=== PATIENT | male | born 1940 | race Two or more races ===

== ENCOUNTER 2024-07-04 14:45 | Inpatient (IN) | payer MEDICARE, MEDICAID, SELFPAY ==
[2024-07-04 14:47] VITALS: BMI 20.5
--- NOTE | 2024-07-04 15:04 | EKG_ITS ---
[facility] Test Date: 2024-07-04 Pat Name: KEILA NELSON Department: Room: - Gender: Male [employer]: : 1940 Requested By: Kirit Eduardo Order Number: [id number] Reading MD: Kirit Eduardo Measurements Intervals [place] Rate: 87 P: 91 ND: 204 QRS: 60 QRSD: 93 T: 96 QT: 382 QTc: 460 Interpretive Statements SINUS RHYTHM WITH OCCASIONAL VENTRICULAR PREMATURE COMPLEXES SEPTAL MYOCARDIAL INFARCTION , PROBABLY OLD [40+ ms Q WAVE IN V1/V2] No previous ECG available for comparison /store/S0/[id number].pdf
--- NOTE | 2024-07-04 15:04 | XR_ITS ---
Examination: CT chest with intravenous contrast CT abdomen with intravenous contrast CT pelvis with intravenous contrast 2-D coronal and sagittal reconstructions Time of exam: July 04, 2024 2000 hours Comparison 02/08/2023 INDICATIONS: Jaundice 2 weeks, unable to E, diagnosis stomach cancer CTDI: vol (mGy) : 4.02 DLP: (mGycm): 292 Technique: Multiple axial images of the chest, abdomen and pelvis with intravenous contrast, 3.0 mm slice thickness. Images obtained post intravenous injection Isovue 370 60 cc. 2-D sagittal and coronal reconstructions. Low dose protocols were performed. One or more of the following dose reduction techniques were used; automated exposure control, adjustment of the mA and/or KV according to patient size, use of iterative reconstruction technique. Findings: No thoracic aortic aneurysmal dilatation Pulmonary artery opacification is poor No peritracheal or tracheobronchial or bronchopulmonary adenopathy COPD with moderate hyperexpansion Soft areas of lung opacity in the lower lung zones consistent with pneumonia Marked intrahepatic biliary tract dilatation Markedly distended gallbladder Marked extrahepatic biliary tract dilatation, common hepatic duct at least 28 mm No definite pancreatic mass Mucosa is thickened in the stomach especially the fundal region No hydronephrosis Renal aorta normal size No bowel obstruction Mild ascites Abundant stool in the rectum Urinary bladder wall thickening Significant osteopenia IMPRESSION: Bibasilar pneumonia Severe extrahepatic biliary tract dilatation including distended gallbladder and markedly enlarged common hepatic common bile duct Recommend ERCP/biliary stent placement follow-up Malignant ascites
--- NOTE | 2024-07-04 15:09 | PD.EDRME ---
Rapid Medical Screening Exam RME Arrival date/time: 07/04/24 14:45 84-year-old male with previous history of stomach cancer reports with complaints of jaundice x 15 days Chief Complaint: Abdominal Pain Time Seen by Provider: 07/04/24 14:49
[2024-07-04 16:33] LABS: Basophils % (Auto) 0 % (0-2.5); Eosinophils % (Auto) 0 % (0-10); Hematocrit 33.2 % (41.0-53.0); Hemoglobin 12.3 g/dL (13.5-16.0); Immature Granulocytes % (Auto) 1 % (0-0); Immature Granulocytes Auto 0.03 Thou/mm3 (0.00-0.00); Lymphocytes # (Auto) 0.9 Thou/mm3 (1.0-4.8); Lymphocytes % (Auto) 18 % (10-50); Mean Corpuscular Hemoglobin 32.3 pg (25.0-35.0); Mean Corpuscular Volume 87 fL (80-100); Monocytes # (Auto) 0.4 Thou/mm3 (0.0-0.8); Monocytes % (Auto) 7 % (0-12); Neutrophils % (Auto) 75 % (37-80); Nucleated Red Blood Cell % 0 /100 WBC (0); Platelet Count 296 Thou/mm3 (140-440); RDW Standard Deviation 59.7 fL (35.1-43.9); Red Blood Count 3.81 Miln/mm3 (4.50-5.90); White Blood Count 5.3 Thou/mm3 (3.8-10.6)
[2024-07-04 16:49] LABS: Ammonia 27 uMol/L (11-32)
[2024-07-04 17:04] LABS: Alanine Aminotransferase 249 U/L (10-49); Albumin, Serum 3.5 gm/dL (3.4-4.8); Albumin/Globulin Ratio 0.9 (1.2-2.2); Alkaline Phosphatase 1029 U/L (46-116); Anion Gap 9 (7-16); Aspartate Amino Transferase 283 U/L (0-34); BUN/Creatinine Ratio 20 Ratio (12-20); Blood Urea Nitrogen 16 mg/dL (9-23); Calcium 9.4 mg/dL (8.3-10.6); Calcium (Corrected) 9.8 mg/dL (8.5-10.1); Carbon Dioxide 30.4 mMol/L (20.0-31.0); Chloride 93 mMol/L (98-107); Creatinine (Component) 0.8 mg/dL (0.6-1.3); Estimated Creatinine Clearance 61.7 mL/min (>60); Globulin 3.9 gm/dL (2.3-3.5); Glucose 280 mg/dL (74-106); Magnesium 1.6 mg/dL (1.6-2.6); Osmolality,Calculated 275 (275-295); Potassium 3.4 mMol/L (3.4-5.1); Sodium 132 mMol/L (136-145); Total Protein 7.4 gm/dL (5.7-8.2); Troponin I < 0.020 ng/mL (0.0-0.045); eGFR > 60 See Note
[2024-07-04 17:31] LABS: Hepatitis A Antibody IgM Non Reactive (Non React); Hepatitis B Core Antibody IgM Non Reactive (Non React); Hepatitis B Surface Antigen Non Reactive (Non React); Hepatitis C Antibody Non Reactive (Non React)
[2024-07-04 17:32] LABS: Bilirubin,Total 31.1 mg/dL (0.3-1.2)
[2024-07-04 19:42] VITALS: BP 110/64; PULSE 77; RESP 18; TEMP 36.5; O2SAT 95
--- NOTE | 2024-07-04 19:44 | PD.EDABDPN ---
ED Abdominal Pain RME/HPI General Chief Complaint: Abdominal Pain Stated complaint: JAUNDICE AND NOT EATING Time seen by provider: 07/04/24 14:49 Arrival date/time: 07/04/24 14:45 Limitations: no limitations RME / HPI RME / HPI narrative: 07/04/24 14:45 84-year-old male with previous history of stomach cancer reports with complaints of jaundice x 15 days ----- Dr. Day's Main ED Evaluation: 84yo male with a history presents to the ED for a chief complaint of jaundice x 3 weeks. states the patient has been turning more yellow over the last 3 weeks, reporting the patient has not been eating and more fatigued than normal. Patient reports associated generalized abdominal pain. She denies any fever, chills, weakness, tenderness or any other associated symptoms. She states the patient is not on any medications. No known allergies. Related Data Allergies Allergy/AdvReac Type Severity Reaction Status Date / Time No Known Allergies Allergy Verified 07/04/24 14:51 Review of Systems Review of Systems Systems Reviewed: All systems reviewed, normal except as documented Past Medical History Past Medical History CARDIAC: Negative Cardiac Disorders or Congestive Heart Failure RESPIRATORY: Negative Chronic Obstructive Pulmonary Disease (COPD) or Asthma GENITOURINARY: Negative Renal Disease ENDOCRINE: Negative Diabetes Mellitus Type 1 or Diabetes Mellitus Type 2 HEMATOLOGIC: Negative Sickle Cell Disease Social History SMOKING STATUS: Never smoker ED Exam General Limitations: Present no limitations General appearance: Present alert, in no apparent distress, cachectic and other (appears ill) Head Head exam: Present atraumatic Eye Eye exam: Present PERRL, EOMI and scleral icterus ENT ENT exam: Present normal exam, normal oropharynx and mucous membranes moist Neck Neck exam: Present normal inspection, full ROM and trachea midline Chest Chest inspection: Present normal inspection and symmetric chest wall rise Respiratory Respiratory exam: Present normal lung sounds bilaterally Cardiovascular Cardiovascular exam: Present regular rate, normal rhythm and normal heart sounds Abdominal Exam Abdominal exam: Present soft; Absent mass Extremities Exam Extremities exam: Present normal inspection and full ROM; Absent pedal edema Back Exam Back exam: Present normal inspection and full ROM; Absent other (thoracic or lumbar tenderness) Neurological Exam Neurological exam: Present alert, oriented X3, CN II-XII intact and normal gait Psychiatric Psychiatric exam: Present normal affect and normal mood Skin Skin exam: Present warm, dry, intact and other (jaundice; no petechiae); Absent rash Course Course Course Narrative: 1948: Patient is sitting in RME and is pending a room. 2001: Patient to CT. Quality Measures none Orders Category Date Time Status Admit to Inpatient Status Routine Admission 07/04/24 21:34 Active Patient Condition Routine Admission 07/04/24 21:34 Ordered COVID-19 Screening Questionnaire NOW Care 07/04/24 20:[address] Screening NOW Care 07/04/24 15:05 Active Continuous Pulse Oximetry NOW Care 07/04/24 21:34 Completed Decision to Admit X1 Care 07/04/24 20:53 Completed EKG (ED ONLY) *Do not use* NOW Care 07/04/24 15:04 Completed Intake and Output QSHIFT Care 07/04/24 21:45 Ordered MRI Screening NOW Care 07/04/24 20:54 Active Miscellaneous Nursing Order NOW Care 07/04/24 21:34 Active Neuro Check Q4H Care 07/04/24 21:34 Active Notify provider NEEDED Care 07/04/24 21:34 Active Obtain weight NOW Care 07/04/24 21:34 Completed Sequential Compression Device QSHIFT Care 07/04/24 21:39 Active Diet Regular Diet 07/04/[address] chest abdomen pelvis w Stat Exams 07/04/24 15:04 Completed EKG (ED Only) Stat Exams 07/04/24 15:04 Draft MR abdomen wo/w con Stat Exams 07/04/24 Ordered A1C [Glycohemoglobin w (eAG)] AM DRAW Lab 07/05/24 05:00 Ordered Acetaminophen Stat Lab 07/04/24 21:44 Ordered Ammonia Stat Lab 07/04/24 16:01 Completed Bilirubin,Direct Stat Lab 07/04/24 21:24 Received CA 19-9 Antigen* Stat Lab 07/04/24 21:24 Received CBC AM DRAW Lab 07/05/24 05:00 Ordered CBC AM DRAW Lab 07/06/24 05:00 Ordered CBC AM DRAW Lab 07/07/24 05:00 Ordered CBC AM DRAW Lab 07/08/24 05:00 Ordered CBC AM DRAW Lab 07/09/24 05:00 Ordered CBC AM DRAW Lab 07/10/24 05:00 Ordered CBC AM DRAW Lab 07/11/24 05:00 Ordered CBC Stat Lab 07/04/24 16:01 Completed CMP [Comprehensive Metabolic Panel] Stat Lab 07/04/24 16:01 Completed Comprehensive Metabolic Panel AM DRAW Lab 07/05/24 05:00 Ordered Comprehensive Metabolic Panel AM DRAW Lab 07/06/24 05:00 Ordered Comprehensive Metabolic Panel AM DRAW Lab 07/07/24 05:00 Ordered Comprehensive Metabolic Panel AM DRAW Lab 07/08/24 05:00 Ordered Comprehensive Metabolic Panel AM DRAW Lab 07/09/24 05:00 Ordered Comprehensive Metabolic Panel AM DRAW Lab 07/10/24 05:00 Ordered Comprehensive Metabolic Panel AM DRAW Lab 07/11/24 05:00 Ordered Drug Screen,Urine Stat Lab 07/04/24 21:44 Ordered Free T4 (Free Thyroxine) AM DRAW Lab 07/05/24 05:00 Ordered Hepatitis Acute Panel Stat Lab 07/04/24 16:01 Completed Hepatitis Acute Panel Stat Lab 07/04/24 21:24 Received INR [Prothrombin Time with INR] Stat Lab 07/04/24 21:24 Received LDH (Lactate Dehydrogenase) Stat Lab 07/04/24 21:44 Ordered Lipid Panel AM DRAW Lab 07/05/24 05:00 Ordered Mag [Magnesium] Stat Lab 07/04/24 16:01 Completed Magnesium AM DRAW Lab 07/05/24 05:00 Ordered Magnesium AM DRAW Lab 07/06/24 05:00 Ordered Magnesium AM DRAW Lab 07/07/24 05:00 Ordered PSA [Prostate Specific Antigen] Routine Lab 07/05/24 05:00 Ordered PT [Prothrombin Time with INR] Stat Lab 07/04/24 20:54 Ordered PTT [Partial Thromboplastin Time] Stat Lab 07/04/24 21:24 Received Partial Thromboplastin Time AM DRAW Lab 07/05/24 05:00 Ordered Partial Thromboplastin Time AM DRAW Lab 07/06/24 05:00 Ordered Partial Thromboplastin Time AM DRAW Lab 07/07/24 05:00 Ordered Phosphorous AM DRAW Lab 07/05/24 05:00 Ordered Phosphorous AM DRAW Lab 07/06/24 05:00 Ordered Phosphorous AM DRAW Lab 07/07/24 05:00 Ordered Prealbumin Stat Lab 07/04/24 21:24 Received Prothrombin Time with INR AM DRAW Lab 07/05/24 05:00 Ordered Prothrombin Time with INR AM DRAW Lab 07/06/24 05:00 Ordered Prothrombin Time with INR AM DRAW Lab 07/07/24 05:00 Ordered Thyroid Stimulating Hormone AM DRAW Lab 07/05/24 05:00 Ordered Troponin I Stat Lab 07/04/24 16:01 Completed UA [Urinalysis] Stat Lab 07/04/24 15:04 Ordered Ondansetron Inj [Zofran Inj] Med 07/04/24 21:34 Active 4 mg IV Q6H PRN Ringers Lactated 1000 ml [Lactated Ringers] 1,000 ml Med 07/04/24 21:45 Active IV 75 mls/hr Code Status Routine Oth 07/04/24 21:34 Ordered Oxygen Delivery PRN RT 07/04/24 21:34 Active Vital Signs Vital signs: Vital Signs Temperature 97.7 F 07/04/24 19:42 Pulse Rate 77 07/04/24 19:42 Respiratory Rate 18 07/04/24 19:42 Blood Pressure 110/64 07/04/24 19:42 Pulse Oximetry (%) 95 07/04/24 19:42 Abdominal Pain MDM MDM Narrative MDM Narrative:: Suggested E/M Coding Level 99967 (This level has been selected based on the 2022 CPT guidelines for E/M codes in the ED.) COPA: This patient has high complexity 1+ chronic illnesses with severe exacerbation, progression, or side effects. Patient with history of prostate cancer with progression of jaundice over the last 15 days. DATA: This patient required moderate data complexity Tests Ordered: 3 Tests Reviewed: 3. Patient with abnormal liver function test to include bilirubin of 31. White count is normal. Otherwise no evidence of thrombocytopenia. Patient normal anion gap and otherwise glucose is 280. Other additional LFTs seem to be abnormal and likely represent an obstructive picture secondary to the alk phos being 1029. External Notes: 3. Noted history of radiation in the past. Independent Historian? Yes - friend RISK: This patient has high risk due to decision regarding hospitalization: Patient has painless juandice and discussed with patient benefits and drawbacks of admission and made a shared decision not to admit. Patient data External records reviewed:: [facility] previous records (Per chart review, patient was seen here on 12/11/22 for acute hyperglycemia.) Clinical information provided by:: patient Social determinants that could affect healthcare access:: none Patient has the following chronic illnesses:: prostate CA How is presenting disease/condition affected by chronic disease/condition?: uneffected by Evaluation data The following diagnostics were reviewed and interpreted by me:: lab results, radiology exam(s) and EKG tracing(s) Lab and/or radiology exams considered but not ordered:: none Interpretation Summary: WBC count is normal, Sodium is 132, Total Bilirubin is elevated at 31.1, LFTs are elevated, Hepatitis is negative, according to my interpretation. EKG done at 1510, NSR, rate of 87, PVCs, QTc: 460, no acute ST or T-wave changes, no STEMI, according to my interpretation. ------ [facility] Report Signed Patient: KEILA NELSON. Record#: [id number] Birthdate: 1940 Age/Sex: 84 / M Location: [facility] Attending Dr: Ordering Physician: Kirit Eduardo PA-C Date of Service: 07/04/24 Procedure(s): CT chest abdomen pelvis w Accession Number(s): [id number] cc: Abdulkadir Harrison MD; NO PRIMARY/FAMILY,PHYSICIAN; Kirit Eduardo PA-C~ Examination: CT chest with intravenous contrast CT abdomen with intravenous contrast CT pelvis with intravenous contrast 2-D coronal and sagittal reconstructions Time of exam: July 04, 2024 2000 hours Comparison 02/08/2023 INDICATIONS: Jaundice 2 weeks, unable to E, diagnosis stomach cancer CTDI: vol (mGy) : 4.02 DLP: (mGycm): 292 Technique: Multiple axial images of the chest, abdomen and pelvis with intravenous contrast, 3.0 mm slice thickness. Images obtained post intravenous injection Isovue 370 60 cc. 2-D sagittal and coronal reconstructions. Low dose protocols were performed. One or more of the following dose reduction techniques were used; automated exposure control, adjustment of the mA and/or KV according to patient size, use of iterative reconstruction technique. Findings: No thoracic aortic aneurysmal dilatation Pulmonary artery opacification is poor No peritracheal or tracheobronchial or bronchopulmonary adenopathy COPD with moderate hyperexpansion Soft areas of lung opacity in the lower lung zones consistent with pneumonia Marked intrahepatic biliary tract dilatation Markedly distended gallbladder Marked extrahepatic biliary tract dilatation, common hepatic duct at least 28 mm No definite pancreatic mass Mucosa is thickened in the stomach especially the fundal region No hydronephrosis Renal aorta normal size No bowel obstruction Mild ascites Abundant stool in the rectum Urinary bladder wall thickening Significant osteopenia IMPRESSION: Bibasilar pneumonia Severe extrahepatic biliary tract dilatation including distended gallbladder and markedly enlarged common hepatic common bile duct Recommend ERCP/biliary stent placement follow-up Malignant ascites Dictated By: Abdulkadir Harrison MD Signed By: <Electronically signed by Abdulkadir Harrison MD in [place]> 07/04/242023 Medications / Prescriptions Medications or Prescriptions considered but not ordered:: none Medication administrations:: Medication Administration History Lactated Ringer's (Lactated Ringers) 1,000 mls @ 75 mls/hr IV .[id number] [facility] Stop: 08/03/24 21:44 Ondansetron HCl (Ondansetron Inj 2 Mg/Ml Inj 2 Ml) 4 mg IV Q6H PRN; Protocol PRN Reason: NAUSEA OR VOMITING Stop: 08/03/24 21:33 see above, if any Consultations Consultation(s) initiated? (list below): Yes Consultation #1 (Physician, Specialty, Details): Discussed case with [Dr. Cifuentes] from [GI] regarding [consultation]. Discussed patients ED course, exam findings, labs, and radiology results. States the patient can be admitted here and the patient can get an inpatient MRI with pancreas view, and Dr. Ann will place a stent. Time: 20:45 Consultation #2 (Physician, Specialty, Details): Discussed case with [the resident physician, attending Dr. Zarate] from Hospitalist service regarding admission. Discussed patients ED course, exam findings, labs, and radiology results. The Hospitalist [agrees] to accept the patient for admission. Time: 20:51 Diagnosis Differential diagnosis abdominal pain: other (metastatic disease, pancreatic cancer, any gallbladder etiology, failure to thrive, CBD obstruction ) Most likely diagnosis given after review of the tests above:: see below Admission Indicated Admission indicated?: indicated Admission Request Was there a request for admission?: Yes Admission Attestation Admission request attestation: Discussed case with [] from Hospitalist service regarding admission. Discussed patients ED course, exam findings, labs, and radiology results. The Hospitalist [agrees,declines] to accept the patient for admission. Disposition Plan Disposition Plan: Admit Discharge Plan Prescriptions/Referrals Referrals: No Primary/Family,Physician [Primary Care Provider] - In 1 week Problem List Clinical Impression: Painless jaundice, History of prostate cancer Patient/Caregiver Discharge Instructions Print Language: Icelandic
[2024-07-04 21:27] VITALS: BP 136/77; PULSE 72; RESP 18; TEMP 36.6; O2SAT 100
[2024-07-04 21:47] VITALS: PULSE 77; RESP 16; RESP 98
--- NOTE | 2024-07-04 21:48 | ESHP_ITS ---
Documentation for date of: 07/04/24 HPI History of Present Illness Chief complaint: Yellow discoloration of skin, lethargy, diarrhea History of present illness: Mr. Zamora is a 84-year-old male with past medical history of prostate cancer who presented to [facility] [place] emergency department on 07/04/24 with chief complaint of yellowish discoloration of skin, increased lethargy and diarrhea. Patient is a poor historian, history obtained at bedside, patient's friend at bedside, per patient his symptoms started about 3 weeks ago when he started noticing yellowish discoloration of skin, does complain of pruritus, on and off mild abdominal pain and watery diarrhea on and off. Patient endorsed progressive weakness complicating his daily life, denies any history of liver disease in the past, complains of cancer in abdomen for which he received surgery and radiation in 1978, patient is unable to provide more details about history of malignancy. Patient denies any history of prostate cancer, per review of records patient had prostate cancer for which he received surgery, radiation and hormonal therapy. Patient is alert and oriented x 3, no asterixis or tremors noted, conversational able to hold conversation, no signs of hepatic encephalopathy. Patient does report using tsqq-uwj-voyecap aspirin about twice a day, sometimes 4 times a day, denies any qnuc-lfu-ysuskfz Tylenol use, herbal supplement use. He does report history of excessive alcohol use in the past and cocaine use in 1960s. Patient otherwise denies any other drug use or alcohol use currently. Patient is significantly cachectic, complains of recent weight loss as well. Patient denies following up with a primary care physician outpatient, reports last time he saw physician was about 10 years ago and presented to the ED today due to worsening of symptoms since the last 3 weeks. Patient denies any chest pain, shortness of breath and headache. ED Course: ED Vitals: On presentation BP 110/64, P77, RR 18, temp 97.7, O2 sat 95 on room air ED Labs: ED labs significant for RBC 3.81, hemoglobin 12.3, sodium 132, chloride 93, glucose 280, total bilirubin 31.1, AST 283, ALT 249, alk phos 1029, globulin 3.9 ED Imaging:CT chest abdomen pelvis significant for bibasilar pneumonia, severe extrahepatic biliary dilatation including distended gallbladder and markedly enlarged common hepatic common bile duct, malignant ascites. ED Treatment: Gastroenterology consulted in ED, recommended admission for further evaluation. Patient admitted to hospital for further management of acute cholestasis and hyperbilirubinemia. Review of Systems Review of Systems Narrative Review of Systems: ROS: -CONSTITUTIONAL: Positive for weight loss, denies fever and chills. -HEENT: Denies changes in vision and hearing. -RESPIRATORY: Denies SOB and cough. -CV: Denies palpitations and Chest Pain. -GI: Positive for on and off abdominal pain, positive for nausea, vomiting and diarrhea. -: Denies dysuria and urinary frequency. -MSK: Denies myalgia and joint pain. -SKIN: Denies rash and pruritus. Positive for yellowish discoloration of skin -NEUROLOGICAL: Denies headache and syncope. -PSYCHIATRIC: Denies recent changes in mood. Denies anxiety and depression. Past Medical History Past Medical History Comments PMH COMMENT: PMH: Positive for prostate cancer PSHx: Positive for robot-assisted radical prostatectomy Allergies: No known allergies Social history: Independent ADLs, lives with friend -Smoking: Denies -Alcohol Use: Positive for significant alcohol use in past -Illicit Drug Use: Positive for cocaine use in past, per chart review patient had U tox positive for meth, denies any meth use Family History: No pertinent family history Exam Vital Signs Temp Pulse Resp BP Pulse Ox O2 Del Method 97.9 F 72 18 136/77 H 100 Room Air 07/04/24 21:27 07/04/24 21:27 07/04/24 21:27 07/04/24 21:27 07/04/24 21:27 07/04/24 21:27 Narrative Exam Physical Exam General: Awake and in no acute distress. Conversational, cachectic and frail. HEENT: Normocephalic, atraumatic, mucous membranes moist. Icterus noted. Heart: Regular rate and rhythm, no murmurs. Lungs: Clear to auscultation with no wheezing or crackles. Abdomen: Soft, scaphoid, nondistended, nontender, positive bowel sounds. ?No guarding or rebound tenderness. Neurologic: Alert and oriented x3, no gross neurological deficit, and patient able to move all 4 extremities. Extremities: No edema. Skin: No rash or ecchymoses. Significant jaundice noted. Results: Labs 07/04/24 16:01 07/04/24 16:01 Labs: Short CBC 07/04/24 Range/Units 16:01 WBC 5.3 (3.8-10.6) Thou/mm3 Hgb 12.3 L (13.5-16.0) g/dL Hct 33.2 L (41.0-53.0) % Plt Count 296 (140-440) Thou/mm3 BMP 07/04/24 16:01 Sodium 132 L Potassium 3.4 Chloride 93 L Carbon Dioxide 30.4 BUN 16 Creatinine 0.8 Glucose 280 H Calcium 9.4 Cardiac Enzymes 07/04/24 Range/Units 16:01 Troponin I < 0.020 (0.0-0.045) ng/mL Liver Function 07/04/24 Range/Units 16:01 Total Bilirubin 31.1 H* (0.3-1.2) mg/dL AST 283 H (0-34) U/L ALT 249 H (10-49) U/L Alkaline Phosphatase 1029 H (46-116) U/L Albumin 3.5 (3.4-4.8) gm/dL Quality Measures Quality Measures none Advance care planning discussed with:: patient Medications Home Medications and Allergies Allergies Allergy/AdvReac Type Severity Reaction Status Date / Time No Known Allergies Allergy Verified 07/04/24 14:51 Visit Medications Lactated Ringer's (Lactated Ringers) 1,000 mls @ 75 mls/hr IV .[id number] BARBIE Stop: 08/03/24 21:44 Ondansetron HCl (Ondansetron Inj 2 Mg/Ml Inj 2 Ml) 4 mg IV Q6H PRN; Protocol PRN Reason: NAUSEA OR VOMITING Stop: 08/03/24 21:33 Assessment & Plan Plan Assessment and plan: Summary: Mr. Zamora is a 84-year-old male with past medical history of prostate cancer who presented to [facility] [place] emergency department on 07/04/24 with chief complaint of yellowish discoloration of skin, increased lethargy and diarrhea. Patient admitted to hospital for further management of acute cholestasis and hyperbilirubinemia. #Acute cholestasis #Hyperbilirubinemia #Elevated alkaline phosphatase # Transaminitis Patient complained of significant jaundice, lethargy pruritus and on and off diarrhea for the last 3 weeks. Has no history of liver disease, denies following up with a primary care physician in the last 10 years, does have a history of prostate cancer. GI consulted in ED recommended admission for further workup. total bilirubin 31.1, AST 283, ALT 249, alk phos 1029 CT chest abdomen pelvis significant for bibasilar pneumonia, severe extrahepatic biliary dilatation including distended gallbladder and markedly enlarged common hepatic common bile duct, malignant ascites. Plan: -Started on IV maintenance fluids LR 75 cc/h. -Follow direct bilirubin, hepatitis panel, HIV, LDH, prealbumin -Follow acetaminophen level, LDH, urine tox screen -Follow CA 19?9 -Follow MRI abdomen -GI consulted, appreciate recs -Empiric IV ceftriaxone (07/04- # History of prostate cancer Per chart review patient had a history of prostate cancer treated surgically, with chemotherapy radiation. Follow-up PSA in a.m. #Mild hypochloremic hyponatremia Patient on IV maintenance fluids, monitor in a.m. #Hyperglycemia Elevated blood glucose 280 noted on CMP, follow hemoglobin A1c in a.m. Had blood glucose reading of 335 on his last visit Patient denies history of diabetes mellitus We will start insulin sliding scale DVT prophylaxis: Heparin Q12H GI prophylaxis: Protonix IV Diet: Regular Lines: Peripheral IV Code status: Full Code Case discussed with Attending Dr. Rollins. Dalton Joyce PGY1 Disclaimer: This note was dictated by speech recognition. Minor errors in cylinder steamer may be present due to voice recognition software. Attending Provider Attestation/Addendum I attest that I was physically present for the evaluation, physical examination, lab and imaging review of the patient with the residents. I discussed the case with the residents and agree with the findings and plans of care as documented above. Patient is an 84 years old male with past medical history of prostate cancer status postsurgery and radiation therapy who presented to the ED with complaint of yellowish discoloration of skin, lethargy and diarrhea. As per the patient and his friend at bedside, patient started noticing yellowish discoloration of skin about 3 weeks ago. He also has mild pruritus, mild abdominal pain, on and off diarrhea. Patient stated he does not visit doctors, and the last visit was probably 10 years ago. Patient does mention about an abdominal cancer for which he had a surgery but unsure about what kind. He takes aspirin 2-4 times a day but denied acetaminophen or oblg-zyz-tnrkgko medications use. He has a remote history of alcohol and cocaine abuse, also had methamphetamine positivity on his last visit in 2022. At bedside, patient is alert and oriented, able to answer question and follow commands but is a poor historian. He also appears extremely cachectic with temporal wasting and agrees with recent weight loss as well. In the ED, vital signs are within normal limits. Lab results show bilirubin of 31.1, AST 283, ALT 249, ALP thousand [address] chest/abdomen/pelvis showed severe extrahepatic biliary dilatation including distended gallbladder and markedly enlarged common hepatic duct and malignant ascites. But no definitive pancreatic mass or biliary stones were seen. Gastroenterology was contacted by ED, who recommended admission of the patient and possible ERCP. We will admit the patient for acute cholestasis. CA 19-9, MRI abdomen has been ordered by GI. We will start him on gentle IV hydration and prophylactic IV Rocephin. Will also obtain PSA level as patient had a history of prostate cancer in the past. We will obtain hemoglobin A1c level and start him on insulin sliding scale for his high blood glucose, he had a high blood glucose on his last visit as well, patient did not mention about history of diabetes mellitus. We will also recheck patient's height and weight to recalculate his BMI and obtain dietary consult. Lashay Rollins MD
[2024-07-04 22:18] LABS: INR 1.3 (0.9-1.3); Partial Thromboplastin Time 30.2 Seconds (22.0-36.0); Prothrombin Time 13.5 Seconds (9.0-12.2)
[2024-07-04] MEDS: RINGERS LACTATED 1000 ML 1,000 ML 75 ML IV (22:27)
[2024-07-04 22:35] LABS: Bilirubin,Direct 19.3 mg/dL (0.0-0.3)
[2024-07-04 23:30] LABS: Acetaminophen 18.9 mcg/mL (10.0-20.0); LDH (Lactate Dehydrogenase) 245 U/L (120-246); Prealbumin < 5.0 mg/dL (10.0-40.0)
[2024-07-05] VITALS (11 sets, daily range): BP systolic 141–156; BP diastolic 77–100; PULSE 52–63; RESP 13–100; TEMP 36.1–36.6; O2SAT 97–99; BMI 16.0; BMI 15.9
--- NOTE | 2024-07-05 | XR_ITS ---
Examination: MRI abdomen with intravenous contrast. MRI abdomen without intravenous contrast. Date and time of exam: July 05, 2024 1451 hours INDICATIONS: Obstructive jaundice lethargy diarrhea skin discoloration 3 weeks Technique: Multiple axial, sagittal and coronal sections of the abdomen obtained. Transverse images, TR 6020, TE 107. T1 weighted transverse images, TR 582, TE 9.5. T2-weighted sagittal images, TR 4000, TE 105. T2-weighted sagittal images, TR 4000, TE 5. Coronal images, TR 4210, TE 107. Axial and coronal images are obtained post 20 cc intravenous injection, gadolinium. Findings: Severe intrahepatic biliary tract dilatation Distended gallbladder, fluid in the gallbladder wall gallbladder wall measuring 6 mm Marked extrahepatic biliary tract dilatation, common hepatic duct 23 mm, common bile duct at least 14 mm with abrupt termination of the common bile duct No definite pancreatic mass Pancreatic duct is not dilated Spleen is not enlarged No hydronephrosis Aorta normal size No abdominal lymphadenopathy IMPRESSION: Severe extrahepatic biliary tract dilatation, consider malignant stricture involving the common bile duct
[2024-07-05] MEDS: cefTRIAXone/D5w 1gm IV premix 50 ML IV (01:10)
[2024-07-05 02:17] LABS: Hepatitis A Antibody IgM Non Reactive (Non React); Hepatitis B Core Antibody IgM Non Reactive (Non React); Hepatitis B Surface Antigen Non Reactive (Non React); Hepatitis C Antibody Non Reactive (Non React)
[2024-07-05 02:19] LABS: Collection Type, Urine Clean Catch
--- NOTE | 2024-07-05 02:21 | PC.NURSE ---
MD Joyce was notified that patient is complaining of chest pain. According to the patient, the pain is not too severe and he experienced this before. He said he takes 2 aspirins at home for his chest pain when he experiences it at home. said he will come see patient.
--- NOTE | 2024-07-05 02:27 | EKG_ITS ---
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
[2024-07-05] MEDS: ACETAMINOPHEN 325 MG TABLET PO (02:44)
[2024-07-05 03:04] LABS: Bacteria,Urine Rare; Bilirubin,Urine 4+ (Negative); Blood,Urine Negative (Negative); Clarity,Urine Turbid (Clear/Hazy); Color,Urine Drk-Yellow (Lt Yel-Yel); Glucose, Urine 3+ (Negative); Ketones,Urine Negative (Negative); Leukocyte Esterase,Urine Negative (Negative); Nitrite,Urine Negative (Negative); PH,Urine 6.5 (5.0-7.0); Protein,Urine Trace (Neg - Trace); RBC,Urine 4 /hpf (0-3); Squamous Epithelial Cell,Urine 1 /hpf (0-5); WBC,Urine 5 /hpf (0-5)
[2024-07-05 03:10] LABS: Amphetamine/Methamp Scrn,U Negative (Negative); Barbiturate Screen,Urine Negative (Negative); Benzodiazepines Screen,Urine Negative (Negative); Benzoylecgonine Screen, Ur Negative (Negative); Fentanyl Screen,Urine Negative (Negative); Opiate Screen,Urine Negative (Negative); THC Screen,Urine Negative (Negative)
[2024-07-05 03:14] LABS: Specific Gravity,Urine 1.015 (1.001-1.035)
[2024-07-05 05:48] LABS: HIV (1&2) Antibody Rapid Non-Reactive
[2024-07-05 06:20] LABS: Basophils % (Auto) 0 % (0-2.5); Eosinophils % (Auto) 0 % (0-10); Hematocrit 32.7 % (41.0-53.0); Hemoglobin 11.7 g/dL (13.5-16.0); Immature Granulocytes % (Auto) 1 % (0-0); Immature Granulocytes Auto 0.03 Thou/mm3 (0.00-0.00); Lymphocytes # (Auto) 0.9 Thou/mm3 (1.0-4.8); Lymphocytes % (Auto) 17 % (10-50); Mean Corpuscular HGB Conc 35.8 g/dl (31.0-37.0); Mean Corpuscular Hemoglobin 31.8 pg (25.0-35.0); Mean Corpuscular Volume 89 fL (80-100); Monocytes # (Auto) 0.3 Thou/mm3 (0.0-0.8); Monocytes % (Auto) 6 % (0-12); Neutrophils % (Auto) 76 % (37-80); Nucleated Red Blood Cell % 0 /100 WBC (0); Platelet Count 227 Thou/mm3 (140-440); RDW Standard Deviation 62.6 fL (35.1-43.9); Red Blood Count 3.68 Miln/mm3 (4.50-5.90); White Blood Count 5.2 Thou/mm3 (3.8-10.6)
[2024-07-05 06:30] LABS: INR 1.2 (0.9-1.3); Partial Thromboplastin Time 30.8 Seconds (22.0-36.0); Prothrombin Time 13.4 Seconds (9.0-12.2)
[2024-07-05 06:49] LABS: Glucose Estimated Average 226 mg/dL (80-131); Hemoglobin A1C 9.5 % Hgb (4.8-6.0)
[2024-07-05 06:57] LABS: Alanine Aminotransferase 227 U/L (10-49); Albumin, Serum 3.4 gm/dL (3.4-4.8); Albumin/Globulin Ratio 0.9 (1.2-2.2); Anion Gap 8 (7-16); Aspartate Amino Transferase 255 U/L (0-34); BUN/Creatinine Ratio 32 Ratio (12-20); Blood Urea Nitrogen 16 mg/dL (9-23); Calcium 9.2 mg/dL (8.3-10.6); Calcium (Corrected) 9.7 mg/dL (8.5-10.1); Carbon Dioxide 29.7 mMol/L (20.0-31.0); Chloride 95 mMol/L (98-107); Creatinine (Component) 0.5 mg/dL (0.6-1.3); Estimated Creatinine Clearance 76.8 mL/min (>60); Free T4 (Free Thyroxine) 0.94 ng/dL (0.89-1.76); Globulin 3.6 gm/dL (2.3-3.5); Glucose 265 mg/dL (74-106); Magnesium 1.6 mg/dL (1.6-2.6); Osmolality,Calculated 276 (275-295); Phosphorous 2.7 mg/dL (2.4-5.1); Potassium 3.1 mMol/L (3.4-5.1); Sodium 133 mMol/L (136-145); Thyroid Stimulating Hormone 2.95 uIU/mL (0.55-4.78); eGFR > 60 See Note
[2024-07-05 07:06] LABS: Alkaline Phosphatase 949 U/L (46-116)
[2024-07-05 07:10] LABS: Cardiac Risk Estimate 27.6 RATIO (4.0-6.7); Cholesterol 331 mg/dL (132-200); HDL Cholesterol 12 mg/dL (40-60); LDL Cholesterol,Calculated 279 mg/dL (0-130); Triglycerides 202 mg/dL (30-150)
[2024-07-05 07:13] LABS: Bilirubin,Total 29.3 mg/dL (0.3-1.2)
[2024-07-05] MEDS: INSULIN LISPRO (AdmeLOG) 1 UNIT/0.01 ML UNIT SC ×2 (07:51→11:41)
--- NOTE | 2024-07-05 08:08 | EKG_ITS ---
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
[2024-07-05] MEDS: HEPARIN SOD INJ 5000 UNIT/ML VIAL SC ×2 (09:00→20:31)
[2024-07-05] MEDS: PANTOPRAZOLE INJ 40 MG VIAL IVP (09:00)
--- NOTE | 2024-07-05 09:19 | PC.SS ---
Patient Nikole Zamora is a 84 Year old male admitted for Acute Cholestasis. SS met with patient at bedside, patient appeared to be alert and oriented. Patient reports he lives at home with a friend named Sherlyn. Patient does not have her contact number. Patient has listed his friend Nicole Baron as decision maker, . SS attempted to contact Nicole, however not able to leave Voicemail. Patient reports he is able to complete all ADL's independently. Patient utilizes a cane to assist with ambulation. Choice of pharmacy is [facility]. Patient reports he does not have PCP. Patient reports Sherlyn was the one who brought him in to the ED. Patient reports he does not want to discharge to SNF. SS requested for PT eval. Dr. Foley will input orders. Patient would like to discharge back home. SS will need to assist with transportation. Discharge plan: home Next of Kin, Friend Nicole Baron [phone]
[2024-07-05] MEDS: PIPER/TAZO 3.375 GM 50 ML IV ×3 (09:29→23:54)
--- NOTE | 2024-07-05 12:25 | PC.PT ---
PT eval only. Patient is I with transfers and ambulation. Pls see PT eval notes.
[2024-07-05] MEDS: RINGERS LACTATED 1000 ML 1,000 ML 75 ML IV (13:35)
--- NOTE | 2024-07-05 15:45 | ESPR_ITS ---
<Statement entered by Joann Wise MD - 07/06/24 16:01> I discussed with and supervised my co-resident involved in the care of this patient. I agree with the assessment and plan as documented above. Patient seen and examined at bedside. MRCP showed severe extrahepatic biliary tract dilation. Patient to undergo ERCP placement tomorrow. Joann Wise MD PGY-3 Documentation for date of: 07/05/24 Subjective Subjective Interval history: Patient doing well. Status post MRCP which showed severe extrahepatic biliary tract dilation, consider malignant stricture involving the common bile duct. Restarted back on diabetic diet. N.p.o. at midnight, ERCP with stent placement tomorrow. Exam Vital Signs Temp Pulse Resp BP Pulse Ox O2 Del Method 97.8 F 63 18 141/87 H 98 Room Air 07/05/24 12:00 07/05/24 12:00 07/05/24 12:00 07/05/24 12:00 07/05/24 12:00 07/05/24 04:00 Narrative Exam Constitutional: Jaundice, cachectic, frail and ill-appearing Head: Normocephalic/Atraumatic Eyes: Scleral icterus ENMT: Moist Mucous Membranes CVS: RRR, S1 and S2 present, no murmurs, rubs or gallops . RESP: CTAB, no increased work of breathing, no rales, rhonchi or wheezing GI: Soft, nondistended, nontender throughout MSK: Atrophied extremities Skin: Warm to touch, Dry. Jaundiced throughout. Neuro: Alert and oriented. Psych: Appropriate mood and affect. Objective Labs 07/07/24 04:08 07/07/24 04:08 Labs: Laboratory Results - last 24 hr 07/04/24 07/04/24 07/05/24 16:01 21:24 01:50 WBC 5.3 RBC 3.81 L Hgb 12.3 L Hct 33.2 L MCV 87 MCH 32.3 MCHC 37.0 RDW Std Deviation 59.7 H Plt Count 296 Neut % (Auto) 75 Lymph % (Auto) 18 [place] % (Auto) 7 Eos % (Auto) 0 Baso % (Auto) 0 Neut # (Auto) 4.0 Lymph # (Auto) 0.9 L [place] # (Auto) 0.4 Eos # (Auto) 0.0 Baso # (Auto) 0.0 Immature Gran # (Auto) 0.03 H Absolute Nucleated RBC 0.00 Immature Gran % 1 H Nucleated RBC % 0 PT 13.5 H INR 1.3 APTT 30.2 Sodium 132 L Potassium 3.4 Chloride 93 L Carbon Dioxide 30.4 Anion Gap 9 BUN 16 Creatinine 0.8 Estim Creat Clear Calc 61.7 eGFR > 60 BUN/Creatinine Ratio [address] Glu mg/dL Hemoglobin A1c Calculated Osmolality 275 Calcium 9.4 Corrected Calcium 9.8 Phosphorus Magnesium 1.6 Total Bilirubin 31.1 H* Direct Bilirubin 19.3 H AST 283 H ALT 249 H Alkaline Phosphatase 1029 H Ammonia 27 Lactate Dehydrogenase 245 Troponin I < 0.020 Total Protein 7.4 Albumin 3.5 Globulin 3.9 H Albumin/Globulin Ratio 0.9 L Prealbumin < 5.0 L Triglycerides Cholesterol LDL Cholesterol, Calc HDL Cholesterol Cholesterol/HDL Ratio Prostate Specific Ag TSH Free T4 Ur Collection Type Clean Catch Urine Color Drk-Yellow A Urine Clarity Turbid A Urine pH 6.5 Ur Specific [place] 1.015 Urine Protein Trace Urine Glucose (UA) 3+ A Urine Ketones Negative Urine Blood Negative Urine Nitrite Negative Urine Bilirubin 4+ A Urine Urobilinogen (Auto) 2.0 Ur Leukocyte Esterase Negative Urine RBC 4 H Urine WBC 5 Ur Squamous Epith Cells 1 Urine Bacteria Rare Urine Opiates Screen Negative Urine Fentanyl Screen Negative Acetaminophen 18.9 Ur Barbiturates Screen Negative U Amphetamin/Meth Scrn Negative U Benzodiazepines Scrn Negative U Cocaine Metab Screen Negative U Marijuana (THC) Screen Negative Hepatitis A IgM Ab Non Reactive Non Reactive Hep Bs Antigen Non Reactive Non Reactive Hep B Core IgM Ab Non Reactive Non Reactive Hepatitis C Antibody Non Reactive Non Reactive HIV 1&2 Antibody Rapid Non-Reactive 07/05/24 04:55 WBC 5.2 RBC 3.68 L Hgb 11.7 L Hct 32.7 L MCV 89 MCH 31.8 MCHC 35.8 RDW Std Deviation 62.6 H Plt Count 227 D Neut % (Auto) 76 Lymph % (Auto) 17 [place] % (Auto) 6 Eos % (Auto) 0 Baso % (Auto) 0 Neut # (Auto) 4.0 Lymph # (Auto) 0.9 L [place] # (Auto) 0.3 Eos # (Auto) 0.0 Baso # (Auto) 0.0 Immature Gran # (Auto) 0.03 H Absolute Nucleated RBC 0.00 Immature Gran % 1 H Nucleated RBC % 0 PT 13.4 H INR 1.2 APTT 30.8 Sodium 133 L Potassium 3.1 L Chloride 95 L Carbon Dioxide 29.7 Anion Gap 8 BUN 16 Creatinine 0.5 L Estim Creat Clear Calc 76.8 eGFR > 60 BUN/Creatinine Ratio 32 H Glucose [address] Glu mg/dL 226 H Hemoglobin A1c 9.5 H Calculated Osmolality 276 Calcium 9.2 Corrected Calcium 9.7 Phosphorus 2.7 Magnesium 1.6 Total Bilirubin 29.3 H* D Direct Bilirubin AST 255 H ALT 227 H Alkaline Phosphatase 949 H D Ammonia Lactate Dehydrogenase Troponin I Total Protein 7.0 Albumin 3.4 Globulin 3.6 H Albumin/Globulin Ratio 0.9 L Prealbumin Triglycerides 202 H Cholesterol 331 H LDL Cholesterol, Calc 279 H HDL Cholesterol 12 L Cholesterol/HDL Ratio 27.6 H Prostate Specific Ag 0.20 TSH 2.95 Free T4 0.94 Ur Collection Type Urine Color Urine Clarity Urine pH Ur Specific [place] Urine Protein Urine Glucose (UA) Urine Ketones Urine Blood Urine Nitrite Urine Bilirubin Urine Urobilinogen (Auto) Ur Leukocyte Esterase Urine RBC Urine WBC Ur Squamous Epith Cells Urine Bacteria Urine Opiates Screen Urine Fentanyl Screen Acetaminophen Ur Barbiturates Screen U Amphetamin/Meth Scrn U Benzodiazepines Scrn U Cocaine Metab Screen U Marijuana (THC) Screen Hepatitis A IgM Ab Hep Bs Antigen Hep B Core IgM Ab Hepatitis C Antibody HIV 1&2 Antibody Rapid Quality Measures Quality Measures none Advance care planning discussed with:: patient Assessment & Plan Assessment Current Active Medications: Generic Name Dose Route Start Last Admin Trade Name Freq PRN Reason Stop Dose Admin Dextrose 25 ml 07/04/24 23:32 Dextrose 50%-Water Inj 50 Ml Syringe IV 08/03/24 23:31 Q15MIN PRN BG 50-70 responsive npo pt Dextrose 50 ml 07/04/24 23:32 Dextrose 50%-Water Inj 50 Ml Syringe IV 08/03/24 23:31 Q15MIN PRN BG <50 OR BG <70 & pt unresponsive Glucagon 1 mg 07/04/24 23:32 Glucagon Inj 1 Mg Vial IM Q15MIN PRN BG <70, and no IV access Heparin Sodium (Porcine) 5,000 unit 07/05/24 09:00 07/05/24 09:00 Heparin Sod Inj 5000 Unit/Ml Vial SC 07/19/24 08:59 5,000 unit Q12H BARBIE Administration Lactated Ringer's 1,000 mls @ 75 mls/hr 07/04/24 21:45 07/05/24 13:35 Lactated Ringers IV 07/06/24 21:44 75 mls/hr .[id number] BARBIE Administration Piperacillin/Tazobactam/Dextrose 50 mls @ 100 mls/hr 07/05/24 09:15 07/05/24 09:29 Zosyn IV 07/12/24 09:14 100 mls/hr Q6HR BARBIE Administration Insulin Human Lispro 0 unit 07/05/24 07:30 07/05/24 11:41 Insulin Lispro (Admelog) 1 Unit/0.01 Ml Unit SC 08/04/24 07:29 2 unit AC BARBIE Administration Protocol Ondansetron HCl 4 mg 07/04/24 21:34 Ondansetron Inj 2 Mg/Ml Inj 2 Ml IV 08/03/24 21:33 Q6H PRN NAUSEA OR VOMITING Protocol Pantoprazole Sodium 40 mg 07/05/24 09:00 07/05/24 09:00 Pantoprazole Inj 40 Mg Vial IVP 08/04/24 08:59 40 mg QDAY BARBIE Administration Plan Mr. Zamora is a 84-year-old male with past medical history of prostate cancer who presented to [facility] emergency department on 07/04/24 with chief complaint of yellowish discoloration of skin, increased lethargy and diarrhea. Patient admitted to hospital for further management of acute cholestasis and hyperbilirubinemia. #Acute cholestasis #Hyperbilirubinemia #Elevated alkaline phosphatase # Transaminitis Patient complained of significant jaundice, lethargy pruritus and on and off diarrhea for the last 3 weeks. Has no history of liver disease, denies following up with a primary care physician in the last 10 years, does have a history of prostate cancer. GI consulted in ED recommended admission for further workup. total bilirubin 31.1, AST 283, ALT 249, alk phos 1029 CT chest abdomen pelvis significant for bibasilar pneumonia, severe extrahepatic biliary dilatation including distended gallbladder and markedly enlarged common hepatic common bile duct, malignant ascites. MRCP showed severe extrahepatic biliary tract dilation, consider malignant stricture involving the common bile duct. Ddx. Cholangiocarcinoma versus ampullary Plan: -N.p.o. at midnight, pending ERCP with stent placement -Pending hepatitis panel,CA 19?9 -Empiric IV ceftriaxone (07/04), Zosyn (07/05?present) # History of prostate cancer PSA of 0.2 #Mild hypochloremic hyponatremia Will continue to monitor #Hyperglycemia A1c of 9.5 ?Sliding scale DVT prophylaxis: Heparin Q12H GI prophylaxis: Protonix IV Diet: Diabetic diet Lines: Peripheral IV Code status: Full Code Case discussed with Attending Dr. Xie. Jomar Schwarz, PGY1 Attending Provider Attestation/Addendum Face to face evaluation was performed by me. I have personally seen and examined the patient. I discussed the assessment and plan with the entire medicine team. I reviewed available medical records, imaging studies, laboratory results. I agree with the above subjective data, objective findings, assessment and plan except as corrected by me or noted below #Acute cholestasis #Hyperbilirubinemia #Elevated alkaline phosphotase #Jaundice possible chalangiocarcinoma #cachexia -MRCP GI on board possible ERCP Needs increased po intake, dietitian would be beneficial monitor vitals, labs and clnical cpurse closely
--- NOTE | 2024-07-05 15:47 | PD.IMCONS ---
HPI Data of Consult Requesting Physician: Lashay Rollins MD Primary Care Provider: Physician No Primary/Family Consult Narrative History of present illness: CC: Jaundice HPI: Pt is a 84-year-old male with past medical history of prostate cancer with yellowish discoloration of skin, increased lethargy and diarrhea. Patient is a poor historian. all started about 3 weeks ago when he started noticing yellowish discoloration of skin, does complain of pruritus, on and off mild abdominal pain and watery diarrhea on and off. Patient endorsed progressive weakness. Patient is alert and oriented x 3, no asterixis or tremors noted, conversational able to hold conversation, no signs of hepatic encephalopathy. Patient is cachectic, complains of recent weight loss as well. GI was called to evaluate the pt. No other associated symptoms. cc:: cc: Lashay Rollins MD Review of Systems Review of Systems Narrative Review of Systems: 12 point sand negative except positive pertinent symptoms. Meds Home Medications and Allergies Home Medications ?Medication ?Instructions ?Recorded ?Confirmed ?Type No Known Home Medications 07/05/24 07/05/24 History Allergies Allergy/AdvReac Type Severity Reaction Status Date / Time No Known Allergies Allergy Verified 07/04/24 14:51 Exam Vital Signs Temp Pulse Resp BP Pulse Ox O2 Del Method 97.8 F 63 18 141/87 H 98 Room Air 07/05/24 12:00 07/05/24 12:00 07/05/24 12:00 07/05/24 12:00 07/05/24 12:00 07/05/24 04:00 Detailed Abdominal Exam Comments: No abdominal tenderness and no rebound and no significant findings. Results Labs 07/05/24 04:55 07/05/24 04:55 Labs: Short CBC 07/04/24 07/05/24 Range/Units 16:01 04:55 WBC 5.3 5.2 (3.8-10.6) Thou/mm3 Hgb 12.3 L 11.7 L (13.5-16.0) g/dL Hct 33.2 L 32.7 L (41.0-53.0) % Plt Count 296 227 D (140-440) Thou/mm3 BMP 07/04/24 07/05/24 16:01 04:55 Sodium 132 L 133 L Potassium 3.4 3.1 L Chloride 93 L 95 L Carbon Dioxide 30.4 29.7 BUN 16 16 Creatinine 0.8 0.5 L Glucose 280 H 265 H Calcium 9.4 9.2 Cardiac Enzymes 07/04/24 Range/Units 16:01 Troponin I < 0.020 (0.0-0.045) ng/mL Liver Function 07/04/24 07/04/24 07/05/24 Range/Units 16:01 21:24 04:55 Total Bilirubin 31.1 H* 29.3 H* D (0.3-1.2) mg/dL Direct Bilirubin 19.3 H (0.0-0.3) mg/dL AST 283 H 255 H (0-34) U/L ALT 249 H 227 H (10-49) U/L Alkaline Phosphatase 1029 H 949 H D (46-116) U/L Albumin 3.5 3.4 (3.4-4.8) gm/dL Urine 07/05/24 Range/Units 01:50 Urine Color Drk-Yellow A (Lt Yel-Yel) Urine Clarity Turbid A (Clear/Hazy) Urine pH 6.5 (5.0-7.0) Ur Specific [place] 1.015 (1.001-1.035) Urine Protein Trace (Neg - Trace) Urine Glucose (UA) 3+ A (Negative) Assessment and Plan Additional Assessment & Plan Additional Plan: 84-year-old male with past medical history of prostate cancer with yellowish discoloration of skin, increased lethargy and diarrhea. Patient is a poor historian. all started about 3 weeks ago when he started noticing yellowish discoloration of skin, does complain of pruritus, on and off mild abdominal pain and watery diarrhea on and off. CT Scan: IMPRESSION: Bibasilar pneumonia Severe extrahepatic biliary tract dilatation including distended gallbladder and markedly enlarged common hepatic common bile duct Recommend ERCP/biliary stent placement follow-up Malignant ascites Bili direct dominant obstructive pattern MRI obtained, d/w Dr. 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
--- NOTE | 2024-07-05 16:11 | PC.SS ---
Walkers The diagnosis creates mobility limitation that significantly impairs ability to participate in the patients activities of daily living either in their entirety, or in a reasonable time frame. Also the patient is able to safely use the walker and the patient?s mobility is sufficiently resolved with the use of the walker and cane has been ruled out.
--- NOTE | 2024-07-05 16:16 | PC.SS ---
SS follow up note; SS was informed by PT that patient was needing a Rollator walker. SS submitted DME request through [employer]. [facility] will arrange with patient in regards to delivery
[2024-07-06] VITALS (8 sets, daily range): BP systolic 121–142; BP diastolic 68–88; PULSE 54–68; RESP 16–100; TEMP 36–36.6; O2SAT 97–99
[2024-07-06] MEDS: PIPER/TAZO 3.375 GM 50 ML IV ×4 (05:39→23:33)
[2024-07-06] MEDS: RINGERS LACTATED 1000 ML 1,000 ML 75 ML IV ×2 (05:40→21:09)
[2024-07-06 05:48] LABS: Basophils % (Auto) 0 % (0-2.5); Eosinophils % (Auto) 0 % (0-10); Hematocrit 31.7 % (41.0-53.0); Hemoglobin 11.6 g/dL (13.5-16.0); Immature Granulocytes % (Auto) 1 % (0-0); Immature Granulocytes Auto 0.03 Thou/mm3 (0.00-0.00); Lymphocytes # (Auto) 0.6 Thou/mm3 (1.0-4.8); Lymphocytes % (Auto) 13 % (10-50); Mean Corpuscular HGB Conc 36.6 g/dl (31.0-37.0); Mean Corpuscular Volume 88 fL (80-100); Monocytes # (Auto) 0.3 Thou/mm3 (0.0-0.8); Monocytes % (Auto) 6 % (0-12); Neutrophils # (Auto) 3.7 Thou/mm3 (1.8-7.7); Neutrophils % (Auto) 81 % (37-80); Nucleated Red Blood Cell % 0 /100 WBC (0); Platelet Count 207 Thou/mm3 (140-440); RDW Standard Deviation 62.4 fL (35.1-43.9); Red Blood Count 3.62 Miln/mm3 (4.50-5.90); White Blood Count 4.6 Thou/mm3 (3.8-10.6)
[2024-07-06] MEDS: INSULIN LISPRO (AdmeLOG) 1 UNIT/0.01 ML UNIT SC ×2 (05:51→17:19)
[2024-07-06 06:05] LABS: INR 1.2 (0.9-1.3); Partial Thromboplastin Time 31.9 Seconds (22.0-36.0)
[2024-07-06 07:06] LABS: Alanine Aminotransferase 201 U/L (10-49); Albumin, Serum 3.1 gm/dL (3.4-4.8); Albumin/Globulin Ratio 0.9 (1.2-2.2); Alkaline Phosphatase 938 U/L (46-116); Anion Gap 8 (7-16); Aspartate Amino Transferase 226 U/L (0-34); BUN/Creatinine Ratio 28 Ratio (12-20); Bilirubin,Direct 18.3 mg/dL (0.0-0.3); Blood Urea Nitrogen 14 mg/dL (9-23); Calcium 8.7 mg/dL (8.3-10.6); Calcium (Corrected) 9.4 mg/dL (8.5-10.1); Chloride 93 mMol/L (98-107); Creatinine (Component) 0.5 mg/dL (0.6-1.3); Estimated Creatinine Clearance 76.8 mL/min (>60); Globulin 3.4 gm/dL (2.3-3.5); Glucose 288 mg/dL (74-106); Magnesium 1.5 mg/dL (1.6-2.6); Osmolality,Calculated 276 (275-295); Phosphorous 2.6 mg/dL (2.4-5.1); Potassium 3.3 mMol/L (3.4-5.1); Sodium 132 mMol/L (136-145); Total Protein 6.5 gm/dL (5.7-8.2); eGFR > 60 See Note
[2024-07-06 07:30] LABS: Bilirubin,Total 26.4 mg/dL (0.3-1.2)
--- NOTE | 2024-07-06 07:38 | PC.NURSE ---
MD made aware of pt critical bilirubin 26.4. No orders given. will continue to monitor
[2024-07-06] MEDS: POTASSIUM CHLORIDE 20 mEq TABCR PO (08:30)
[2024-07-06] MEDS: Magnesium Sulfate 2 GM Ivpb 2 GM/50 ML BAG IV (08:31)
[2024-07-06] MEDS: HEPARIN SOD INJ 5000 UNIT/ML VIAL SC ×2 (08:31→21:08)
[2024-07-06] MEDS: PANTOPRAZOLE INJ 40 MG VIAL IVP (08:31)
--- NOTE | 2024-07-06 14:17 | PC.SS ---
Rounding note: Patient is pending ERCP.
--- NOTE | 2024-07-06 14:33 | ESPR_ITS ---
<Statement entered by Joann Wise MD - 07/06/24 16:10> I discussed with and supervised my co-resident involved in the care of this patient. I agree with the assessment and plan as documented above. Patient seen and examined at bedside. No acute problems overnight. Labs show still elevated hyperbilirubinemia, downtrending but still elevated. Electrolytes repleted. Anticipate ERCP today. Joann Wise MD PGY-3 Documentation for date of: 07/06/24 Subjective Subjective Interval history: Patient resting comfortably in bed. Denies any complaints. Is n.p.o. for ERCP with stent placement and biopsy later today. Exam Vital Signs Temp Pulse Resp BP Pulse Ox O2 Del Method 97.8 F 59 L 16 126/85 H 99 Room Air 07/06/24 12:00 07/06/24 12:00 07/06/24 12:00 07/06/24 12:00 07/06/24 12:00 07/06/24 12:00 Narrative Exam Constitutional: Jaundice, cachectic, frail and ill-appearing Head: Normocephalic/Atraumatic Eyes: Scleral icterus ENMT: Moist Mucous Membranes CVS: Regular rate and rhythm RESP: no increased work of breathing GI: Soft, nondistended, nontender throughout MSK: Atrophied extremities Skin: Warm to touch, Dry. Jaundiced throughout. Neuro: Alert and oriented. Psych: Appropriate mood and affect. Objective Labs 07/07/24 04:08 07/07/24 04:08 Labs: Laboratory Results - last 24 hr 07/06/24 04:29 WBC 4.6 RBC 3.62 L Hgb 11.6 L Hct 31.7 L MCV 88 MCH 32.0 MCHC 36.6 RDW Std Deviation 62.4 H Plt Count 207 Neut % (Auto) 81 H Lymph % (Auto) 13 [place] % (Auto) 6 Eos % (Auto) 0 Baso % (Auto) 0 Neut # (Auto) 3.7 Lymph # (Auto) 0.6 L [place] # (Auto) 0.3 Eos # (Auto) 0.0 Baso # (Auto) 0.0 Immature Gran # (Auto) 0.03 H Absolute Nucleated RBC 0.00 Immature Gran % 1 H Nucleated RBC % 0 PT 13.0 H INR 1.2 APTT 31.9 Sodium 132 L Potassium 3.3 L Chloride 93 L Carbon Dioxide 31.0 Anion Gap 8 BUN 14 Creatinine 0.5 L Estim Creat Clear Calc 76.8 eGFR > 60 BUN/Creatinine Ratio 28 H Glucose 288 H Calculated Osmolality 276 Calcium 8.7 Corrected Calcium 9.4 Phosphorus 2.6 Magnesium 1.5 L Total Bilirubin 26.4 H* D Direct Bilirubin 18.3 H AST 226 H ALT 201 H Alkaline Phosphatase 938 H Total Protein 6.5 Albumin 3.1 L Globulin 3.4 Albumin/Globulin Ratio 0.9 L Quality Measures Quality Measures none Advance care planning discussed with:: patient Assessment & Plan Assessment Current Active Medications: Generic Name Dose Route Start Last Admin Trade Name Freq PRN Reason Stop Dose Admin Dextrose 25 ml 07/04/24 23:32 Dextrose 50%-Water Inj 50 Ml Syringe IV 08/03/24 23:31 Q15MIN PRN BG 50-70 responsive npo pt Dextrose 50 ml 07/04/24 23:32 Dextrose 50%-Water Inj 50 Ml Syringe IV 08/03/24 23:31 Q15MIN PRN BG <50 OR BG <70 & pt unresponsive Glucagon 1 mg 07/04/24 23:32 Glucagon Inj 1 Mg Vial IM Q15MIN PRN BG <70, and no IV access Heparin Sodium (Porcine) 5,000 unit 07/05/24 09:00 07/06/24 08:31 Heparin Sod Inj 5000 Unit/Ml Vial SC 07/19/24 08:59 5,000 unit Q12H BARBIE Administration Lactated Ringer's 1,000 mls @ 75 mls/hr 07/04/24 21:45 07/06/24 05:40 Lactated Ringers IV 07/06/24 21:44 75 mls/hr .[id number] BARBIE Administration Piperacillin/Tazobactam/Dextrose 50 mls @ 100 mls/hr 07/05/24 09:15 07/06/24 12:27 Zosyn IV 07/12/24 09:14 100 mls/hr Q6HR BARBIE Administration Insulin Human Lispro 0 unit 07/06/24 06:00 07/06/24 12:12 Insulin Lispro (Admelog) 1 Unit/0.01 Ml Unit SC 08/05/24 05:59 Not Given Q6HR [facility] Protocol Ondansetron HCl 4 mg 07/04/24 21:34 Ondansetron Inj 2 Mg/Ml Inj 2 Ml IV 08/03/24 21:33 Q6H PRN NAUSEA OR VOMITING Protocol Pantoprazole Sodium 40 mg 07/05/24 09:00 07/06/24 08:31 Pantoprazole Inj 40 Mg Vial IVP 08/04/24 08:59 40 mg QDAY BARBIE Administration Plan Mr. Zamora is a 84-year-old male with past medical history of prostate cancer who presented to [facility] emergency department on 07/04/24 with chief complaint of yellowish discoloration of skin, increased lethargy and diarrhea. Patient admitted to hospital for further management of acute cholestasis and hyperbilirubinemia. #Acute cholestasis #Hyperbilirubinemia #Elevated alkaline phosphatase # Transaminitis Patient complained of significant jaundice, lethargy pruritus and on and off diarrhea for the last 3 weeks. Has no history of liver disease, denies following up with a primary care physician in the last 10 years, does have a history of prostate cancer. GI consulted in ED recommended admission for further workup. total bilirubin 31.1, AST 283, ALT 249, alk phos 1029 CT chest abdomen pelvis significant for bibasilar pneumonia, severe extrahepatic biliary dilatation including distended gallbladder and markedly enlarged common hepatic common bile duct, malignant ascites. MRCP showed severe extrahepatic biliary tract dilation, consider malignant stricture involving the common bile duct. Ddx. Cholangiocarcinoma versus ampullary Plan: -GI consulted -N.p.o., pending ERCP with biopsy and stent placement -Pending hepatitis panel,CA 19?9 -Empiric IV ceftriaxone (07/04), Zosyn (07/05?present) # History of prostate cancer PSA of 0.2 #Mild hypochloremic hyponatremia Will continue to monitor #Hyperglycemia A1c of 9.5 ?Sliding scale DVT prophylaxis: Heparin Q12H GI prophylaxis: Protonix IV Diet: Diabetic diet Lines: Peripheral IV Code status: Full Code Case discussed with Attending Dr. De. Jomar Schwarz, PGY1 Attending Provider Attestation/Addendum Estefany Maradiaga DO, attest that I was physically present for the mandel portions of the service and evaluated the patient with the resident and I reviewed and discussed the case with the resident and agree with the resident's findings and plans of care as documented above Patient seen and eval this a.m. Friend is at bedside and states that she has noted that the patient had possibly some black stool at home. She occasionally visits patient to help him around the house. Patient states that he did not notice that the yellowing of his skin until a few days prior to his presentation to the ED. Patient and friend states that he has lost a significant amount of weight unintentionally. He denies any loss of appetite. Plan for ERCP and stent placement today. Discussed with patient the concern for possible malignancy causing obstruction to his biliary tract resulting in hyperbilirubinemia.
[2024-07-06 15:34] LABS: Hepatitis A Antibody IgM Non Reactive (Non React); Hepatitis B Core Antibody IgM Non Reactive (Non React); Hepatitis B Surface Antigen Non Reactive (Non React); Hepatitis C Antibody Non Reactive (Non React)
--- NOTE | 2024-07-06 20:59 | ESPR_ITS ---
Documentation for date of: 07/06/24 Subjective Subjective Interval history: Pt was seen and examined, no acute distress, very Cachectic Exam Vital Signs Temp Pulse Resp BP Pulse Ox O2 Del Method 97.1 F 60 16 121/68 97 Room Air 07/06/24 20:00 07/06/24 20:00 07/06/24 20:00 07/06/24 20:00 07/06/24 20:00 07/06/24 20:00 Routine Abdominal Exam Comments: abdominal exam benign Objective Labs 07/06/24 04:29 07/06/24 04:29 Labs: Laboratory Results - last 24 hr 07/06/24 04:29 WBC 4.6 RBC 3.62 L Hgb 11.6 L Hct 31.7 L MCV 88 MCH 32.0 MCHC 36.6 RDW Std Deviation 62.4 H Plt Count 207 Neut % (Auto) 81 H Lymph % (Auto) 13 [place] % (Auto) 6 Eos % (Auto) 0 Baso % (Auto) 0 Neut # (Auto) 3.7 Lymph # (Auto) 0.6 L [place] # (Auto) 0.3 Eos # (Auto) 0.0 Baso # (Auto) 0.0 Immature Gran # (Auto) 0.03 H Absolute Nucleated RBC 0.00 Immature Gran % 1 H Nucleated RBC % 0 PT 13.0 H INR 1.2 APTT 31.9 Sodium 132 L Potassium 3.3 L Chloride 93 L Carbon Dioxide 31.0 Anion Gap 8 BUN 14 Creatinine 0.5 L Estim Creat Clear Calc 76.8 eGFR > 60 BUN/Creatinine Ratio 28 H Glucose 288 H Calculated Osmolality 276 Calcium 8.7 Corrected Calcium 9.4 Phosphorus 2.6 Magnesium 1.5 L Total Bilirubin 26.4 H* D Direct Bilirubin 18.3 H AST 226 H ALT 201 H Alkaline Phosphatase 938 H Total Protein 6.5 Albumin 3.1 L Globulin 3.4 Albumin/Globulin Ratio 0.9 L Hepatitis A IgM Ab Non Reactive Hep Bs Antigen Non Reactive Hep B Core IgM Ab Non Reactive Hepatitis C Antibody Non Reactive Assessment & Plan A&P Narrative 84-year-old male with past medical history of prostate cancer with yellowish discoloration of skin, increased lethargy and diarrhea. Patient is a poor historian. all started about 3 weeks ago when he started noticing yellowish discoloration of skin, does complain of pruritus, on and off mild abdominal pain and watery diarrhea on and off. MRI: IMPRESSION: Severe extrahepatic biliary tract dilatation, consider malignant stricture involving the common bile duct Bili direct dominant obstructive pattern MRI obtained, d/w Dr. 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
[2024-07-07] VITALS (12 sets, daily range): BP systolic 104–135; BP diastolic 63–79; PULSE 54–70; RESP 12–16; TEMP 36.1–36.7; O2SAT 95–100
[2024-07-07] MEDS: PIPER/TAZO 3.375 GM 50 ML IV ×3 (05:17→18:22)
[2024-07-07 05:58] LABS: Basophils % (Auto) 0 % (0-2.5); Eosinophils % (Auto) 0 % (0-10); Hematocrit 32.8 % (41.0-53.0); Immature Granulocytes % (Auto) 1 % (0-0); Immature Granulocytes Auto 0.03 Thou/mm3 (0.00-0.00); Lymphocytes # (Auto) 0.8 Thou/mm3 (1.0-4.8); Lymphocytes % (Auto) 16 % (10-50); Mean Corpuscular HGB Conc 36.6 g/dl (31.0-37.0); Mean Corpuscular Hemoglobin 31.9 pg (25.0-35.0); Mean Corpuscular Volume 87 fL (80-100); Monocytes # (Auto) 0.4 Thou/mm3 (0.0-0.8); Monocytes % (Auto) 7 % (0-12); Neutrophils # (Auto) 3.7 Thou/mm3 (1.8-7.7); Neutrophils % (Auto) 76 % (37-80); Nucleated Red Blood Cell % 0 /100 WBC (0); Platelet Count 217 Thou/mm3 (140-440); RDW Standard Deviation 63.1 fL (35.1-43.9); Red Blood Count 3.76 Miln/mm3 (4.50-5.90); White Blood Count 4.9 Thou/mm3 (3.8-10.6)
[2024-07-07 06:03] LABS: INR 1.2 (0.9-1.3); Partial Thromboplastin Time 34.1 Seconds (22.0-36.0); Prothrombin Time 12.5 Seconds (9.0-12.2)
[2024-07-07 06:44] LABS: Alanine Aminotransferase 184 U/L (10-49); Albumin, Serum 3.1 gm/dL (3.4-4.8); Albumin/Globulin Ratio 0.9 (1.2-2.2); Alkaline Phosphatase 926 U/L (46-116); Anion Gap 8 (7-16); Aspartate Amino Transferase 224 U/L (0-34); BUN/Creatinine Ratio 20 Ratio (12-20); Bilirubin,Direct 18.1 mg/dL (0.0-0.3); Blood Urea Nitrogen 10 mg/dL (9-23); Calcium 8.9 mg/dL (8.3-10.6); Calcium (Corrected) 9.6 mg/dL (8.5-10.1); Carbon Dioxide 29.9 mMol/L (20.0-31.0); Chloride 95 mMol/L (98-107); Creatinine (Component) 0.5 mg/dL (0.6-1.3); Estimated Creatinine Clearance 76.8 mL/min (>60); Globulin 3.3 gm/dL (2.3-3.5); Glucose 128 mg/dL (74-106); Magnesium 1.8 mg/dL (1.6-2.6); Osmolality,Calculated 267 (275-295); Phosphorous 2.5 mg/dL (2.4-5.1); Potassium 3.8 mMol/L (3.4-5.1); Sodium 133 mMol/L (136-145); Total Protein 6.4 gm/dL (5.7-8.2); eGFR > 60 See Note
[2024-07-07 07:03] LABS: Bilirubin,Total 24.4 mg/dL (0.3-1.2)
[2024-07-07] MEDS: PANTOPRAZOLE INJ 40 MG VIAL IVP (09:30)
[2024-07-07] MEDS: HEPARIN SOD INJ 5000 UNIT/ML VIAL SC ×2 (09:30→20:12)
--- NOTE | 2024-07-07 12:02 | ESPR_ITS ---
<Statement entered by Joann Wise MD - 07/07/24 14:59> ERCP rescheduled to today at 2pm. Patient no acute complaints at bedside. Still very jaundiced. No acute pain. T Bili improving. Will follow up with ERCP operative results. Joann Wise MD PGY-3 Documentation for date of: 07/07/24 Subjective Subjective Interval history: ERCP was canceled yesterday. Patient pending ERCP today. Will restart patient on diet once procedure is done. Patient doing well, denies any complaints. Exam Vital Signs Temp Pulse Resp BP Pulse Ox O2 Del Method 98.1 F 63 16 127/78 100 Room Air 07/07/24 08:00 07/07/24 08:00 07/07/24 08:00 07/07/24 08:00 07/07/24 08:00 07/07/24 08:00 Narrative Exam Constitutional: Jaundice, cachectic, frail and ill-appearing Head: Normocephalic/Atraumatic Eyes: Scleral icterus ENMT: Moist Mucous Membranes CVS: Regular rate and rhythm RESP: no increased work of breathing GI: Soft, nondistended, nontender throughout MSK: Atrophied extremities Skin: Warm to touch, Dry. Jaundiced throughout. Neuro: Alert and oriented. Psych: Appropriate mood and affect. Objective Labs 07/08/24 04:18 07/08/24 04:18 Labs: Laboratory Results - last 24 hr 07/06/24 07/07/24 04:29 04:08 WBC 4.9 RBC 3.76 L Hgb 12.0 L Hct 32.8 L MCV 87 MCH 31.9 MCHC 36.6 RDW Std Deviation 63.1 H Plt Count 217 Neut % (Auto) 76 Lymph % (Auto) 16 [place] % (Auto) 7 Eos % (Auto) 0 Baso % (Auto) 0 Neut # (Auto) 3.7 Lymph # (Auto) 0.8 L [place] # (Auto) 0.4 Eos # (Auto) 0.0 Baso # (Auto) 0.0 Immature Gran # (Auto) 0.03 H Absolute Nucleated RBC 0.00 Immature Gran % 1 H Nucleated RBC % 0 PT 12.5 H INR 1.2 APTT 34.1 Sodium 133 L Potassium 3.8 D Chloride 95 L Carbon Dioxide 29.9 Anion Gap 8 BUN 10 Creatinine 0.5 L Estim Creat Clear Calc 76.8 eGFR > 60 BUN/Creatinine Ratio 20 Glucose 128 H D Calculated Osmolality 267 L Calcium 8.9 Corrected Calcium 9.6 Phosphorus 2.5 Magnesium 1.8 Total Bilirubin 24.4 H* D Direct Bilirubin 18.1 H AST 224 H ALT 184 H Alkaline Phosphatase 926 H Total Protein 6.4 Albumin 3.1 L Globulin 3.3 Albumin/Globulin Ratio 0.9 L Hepatitis A IgM Ab Non Reactive Hep Bs Antigen Non Reactive Hep B Core IgM Ab Non Reactive Hepatitis C Antibody Non Reactive Quality Measures Quality Measures none Advance care planning discussed with:: patient Assessment & Plan Assessment Current Active Medications: Generic Name Dose Route Start Last Admin Trade Name Freq PRN Reason Stop Dose Admin Dextrose 25 ml 07/04/24 23:32 Dextrose 50%-Water Inj 50 Ml Syringe IV 08/03/24 23:31 Q15MIN PRN BG 50-70 responsive npo pt Dextrose 50 ml 07/04/24 23:32 Dextrose 50%-Water Inj 50 Ml Syringe IV 08/03/24 23:31 Q15MIN PRN BG <50 OR BG <70 & pt unresponsive Glucagon 1 mg 07/04/24 23:32 Glucagon Inj 1 Mg Vial IM Q15MIN PRN BG <70, and no IV access Heparin Sodium (Porcine) 5,000 unit 07/05/24 09:00 07/07/24 09:30 Heparin Sod Inj 5000 Unit/Ml Vial SC 07/19/24 08:59 5,000 unit Q12H BARBIE Administration Piperacillin/Tazobactam/Dextrose 50 mls @ 100 mls/hr 07/05/24 09:15 07/07/24 05:17 Zosyn IV 07/12/24 09:14 100 mls/hr Q6HR BARBIE Administration Sodium Chloride 1,000 mls @ 80 mls/hr 07/07/24 08:00 Ns IV 07/07/24 20:29 .[id number] Insulin Human Lispro 0 unit 07/06/24 06:00 07/07/24 05:20 Insulin Lispro (Admelog) 1 Unit/0.01 Ml Unit SC 08/05/24 05:59 Not Given Q6HR [facility] Protocol Ondansetron HCl 4 mg 07/04/24 21:34 Ondansetron Inj 2 Mg/Ml Inj 2 Ml IV 08/03/24 21:33 Q6H PRN NAUSEA OR VOMITING Protocol Pantoprazole Sodium 40 mg 07/05/24 09:00 07/07/24 09:30 Pantoprazole Inj 40 Mg Vial IVP 08/04/24 08:59 40 mg QDAY BARBIE Administration Plan Mr. Zamora is a 84-year-old male with past medical history of prostate cancer who presented to [facility] emergency department on 07/04/24 with chief complaint of yellowish discoloration of skin, increased lethargy and diarrhea. Patient admitted to hospital for further management of acute cholestasis and hyperbilirubinemia. #Acute cholestasis #Hyperbilirubinemia #Elevated alkaline phosphatase # Transaminitis Patient complained of significant jaundice, lethargy pruritus and on and off diarrhea for the last 3 weeks. Has no history of liver disease, denies following up with a primary care physician in the last 10 years, does have a history of prostate cancer. GI consulted in ED recommended admission for further workup. total bilirubin 31.1, AST 283, ALT 249, alk phos 1029 CT chest abdomen pelvis significant for bibasilar pneumonia, severe extrahepatic biliary dilatation including distended gallbladder and markedly enlarged common hepatic common bile duct, malignant ascites. MRCP showed severe extrahepatic biliary tract dilation, consider malignant stricture involving the common bile duct. Negative hepatitis panel Ddx. Cholangiocarcinoma versus ampullary Plan: -GI consulted -N.p.o., pending ERCP with biopsy and stent placement today. ERCP was canceled yesterday. -CA 19?9 pending -Empiric IV ceftriaxone (07/04), Zosyn (07/05?present) # History of prostate cancer PSA of 0.2 #Mild hypochloremic hyponatremia Will continue to monitor #Hyperglycemia A1c of 9.5 ?Sliding scale DVT prophylaxis: Heparin Q12H GI prophylaxis: Protonix IV Diet: Diabetic diet Lines: Peripheral IV Code status: Full Code Case discussed with Attending Dr. De. Jomar Schwarz, PGY1 Attending Provider Attestation/Addendum Estefany Maradiaga DO, attest that I was physically present for the mandel portions of the service and evaluated the patient with the resident and I reviewed and discussed the case with the resident and agree with the resident's findings and plans of care as documented above Patient seen and evaluated this AM. Patient states he is feeling well. ERCP was postponed for today. ERCP was unsuccesful due to severe inflammation and obstruction of antrum. Patient will need extrahepatic biliary drain. Will place NPO after midnight and plan for IR placement of extrahepatic biliary drain in AM. Patient will also need transfer for repeat ERCP with spyglass and EUS.
[2024-07-07] MEDS: SODIUM CHLORIDE 0.9% 1000 ML 1,000 ML 80 ML IV (12:32)
--- NOTE | 2024-07-07 15:51 | PD.EVENT ---
Documentation for date of: 07/07/24 Event Note Event Note: Attempted ERCP, duodnoscope could not be advanced into the duodenum due to severe inflammation/tumor invasion in antrum/pylorus. duodenoscope was switched into gastroscope and attempted multiple times to intubate duodenum, which eventually was intubated with extreme difficulty. Biopsy obtained from antral mucosa. . Antral anatomy altered most likely due to tumor invasion. Needs IR to place a drain into extra-hepatic duct Needs to get transferred for repeat ERCP and spyglass + EUS Call GI with any questions
--- NOTE | 2024-07-07 15:58 | SUR.PHASEI ---
1558: Pt. wakes to name then drifts back to sleep, vitals stable, breathing unlabored, no signs of distress, no dressing in place, no active bleed noted, report received from Arabella LINDA and Jess ANTOINE.
--- NOTE | 2024-07-07 16:30 | SUR.PHASEI ---
1630: Pt. AAOx4, vitals stable, breathing unlabored, no complaint of pain or nausea, no dressing in place, no active bleed noted, gave report to Juan LINDA prior to transfer to room 365, family made aware of transfer to room.
--- NOTE | 2024-07-07 19:26 | PC.CM ---
163 Dr. Ann attempted ERCP, duodnoscope could not be advanced into the duodenum due to severe inflammation/tumor invasion in antrum/pylorus.duodenoscope was switched into gastroscope and attempted multiple times to intubate duodenum, which eventually was intubated with extreme difficulty. Needs IR to place a drain into extra-hepatic duct. Dr. Ann requesting transfer or repeat ERCP and spyglass + EUS.?I called [facility] to see if they had the ability to do ERCP with spyglass. They were going to find out and get back to us. I went ahead and faxed over a referral to [facility].?
--- NOTE | 2024-07-07 19:29 | PC.CM ---
Addendum entered by Prosper Beth RN 07/08/24 09:15: 0900- Phone call to Dr. Ann this morning to update him on case status, he has requested we contact [facility] in [place], he has a colleague there who he will call to discuss this case, Dr. Tim Mcgee. TC RN will send packet over and contact their transfer center. Addendum entered by Prosper Beth RN 07/08/24 08:51: 0851- Call to [facility] TC, spoke with TC ALEXEI Narayan who declined patient based on capacity. They are not taking inpatient transfers at this time. Original Note: 1630 Dr. Ann attempted ERCP, duodnoscope could not be advanced into the duodenum due to severe inflammation/tumor invasion in antrum/pylorus.duodenoscope was switched into gastroscope and attempted multiple times to intubate duodenum, which eventually was intubated with extreme difficulty. Needs IR to place a drain into extra-hepatic duct. Dr. Ann requesting transfer or repeat ERCP and spyglass + EUS. ?I called [facility] to see if they had the ability to do ERCP with spyglass. They were going to find out and get back to us. I went ahead and faxed over a referral to [facility]. I started packet and left if on transfer nurse desk. We will have to call for a CD in the am.
[2024-07-08] VITALS (8 sets, daily range): BP systolic 106–135; BP diastolic 61–78; PULSE 55–74; RESP 12–94; TEMP 35.9–36.6; O2SAT 95–99
[2024-07-08] MEDS: PIPER/TAZO 3.375 GM 50 ML IV ×5 (00:19→23:28)
[2024-07-08] MEDS: INSULIN LISPRO (AdmeLOG) 1 UNIT/0.01 ML UNIT SC ×4 (05:05→23:28)
[2024-07-08 05:46] LABS: Basophils % (Auto) 0 % (0-2.5); Eosinophils % (Auto) 0 % (0-10); Hematocrit 32.6 % (41.0-53.0); Hemoglobin 11.9 g/dL (13.5-16.0); Immature Granulocytes % (Auto) 1 % (0-0); Immature Granulocytes Auto 0.03 Thou/mm3 (0.00-0.00); Lymphocytes # (Auto) 0.8 Thou/mm3 (1.0-4.8); Lymphocytes % (Auto) 17 % (10-50); Mean Corpuscular HGB Conc 36.5 g/dl (31.0-37.0); Mean Corpuscular Hemoglobin 32.2 pg (25.0-35.0); Mean Corpuscular Volume 88 fL (80-100); Monocytes # (Auto) 0.3 Thou/mm3 (0.0-0.8); Monocytes % (Auto) 7 % (0-12); Neutrophils # (Auto) 3.6 Thou/mm3 (1.8-7.7); Neutrophils % (Auto) 76 % (37-80); Nucleated Red Blood Cell % 0 /100 WBC (0); Platelet Count 249 Thou/mm3 (140-440); RDW Standard Deviation 64.6 fL (35.1-43.9); Red Blood Count 3.69 Miln/mm3 (4.50-5.90); White Blood Count 4.8 Thou/mm3 (3.8-10.6)
[2024-07-08 05:53] LABS: INR 1.2 (0.9-1.3)
[2024-07-08 06:15] LABS: Alanine Aminotransferase 146 U/L (10-49); Albumin, Serum 2.8 gm/dL (3.4-4.8); Albumin/Globulin Ratio 0.9 (1.2-2.2); Alkaline Phosphatase 798 U/L (46-116); Anion Gap 10 (7-16); Aspartate Amino Transferase 158 U/L (0-34); BUN/Creatinine Ratio 26 Ratio (12-20); Blood Urea Nitrogen 13 mg/dL (9-23); Calcium 8.4 mg/dL (8.3-10.6); Calcium (Corrected) 9.4 mg/dL (8.5-10.1); Carbon Dioxide 26.8 mMol/L (20.0-31.0); Chloride 96 mMol/L (98-107); Creatinine (Component) 0.5 mg/dL (0.6-1.3); Estimated Creatinine Clearance 76.8 mL/min (>60); Globulin 3.1 gm/dL (2.3-3.5); Glucose 241 mg/dL (74-106); Osmolality,Calculated 274 (275-295); Potassium 3.3 mMol/L (3.4-5.1); Sodium 133 mMol/L (136-145); Total Protein 5.9 gm/dL (5.7-8.2); eGFR > 60 See Note
[2024-07-08 07:05] LABS: Bilirubin,Direct 15.8 mg/dL (0.0-0.3)
[2024-07-08 07:25] LABS: Bilirubin,Total 21.4 mg/dL (0.3-1.2)
[2024-07-08] MEDS: PANTOPRAZOLE INJ 40 MG VIAL IVP (09:32)
[2024-07-08] MEDS: HEPARIN SOD INJ 5000 UNIT/ML VIAL SC ×2 (09:32→20:12)
[2024-07-08] MEDS: POTASSIUM CHLORIDE 20 mEq TABCR PO (09:42)
--- NOTE | 2024-07-08 09:45 | PC.CC ---
Addendum entered by Prosper Beth RN 07/08/24 15:56: 1540- Received call from ALEXEI Tilley at [facility], patient has been accepted by their GI Dr. Mcgee, but he will not be in the hospital to perform the procedure through the weekend, he has requested that the patient be transferred to [facility] on Thursday07/10/24, 24 hours before he does the procedure. TC RN called Dr. Ann to provide update but there was no answer on his phone, updated hospitalist MD Dr. De, she stated they will update the patient's chart. Addendum entered by Prosper Beth RN 07/08/24 10:34: 1025-Received call from ALEXEI Tilley at [facility], provided updated clinicals. She informed me that her GI Dr. Mcgee has accepted patient, she will communicate with the hospitalist team for admission and check bed availability. Will await update form [facility]. Original Note: 3674- Phone call to [facility] transfer center, spoke with ALEXEI More, provided clinical information and contact information for TC here at [facility] and Dr. Ann. Transfer packet has been created and a copy was faxed to the transfer center. Awaiting response from [facility] at this time.
--- NOTE | 2024-07-08 12:05 | PC.NURSE ---
Notified Caitna Schwarz on pt. updated on IR call received and no Drainage insertion due to unavailable cath.
--- NOTE | 2024-07-08 14:09 | ESPR_ITS ---
<Statement entered by Joann Wise MD - 07/08/24 14:56> I discussed with and supervised my co-resident involved in the care of this patient. I agree with the assessment and plan as documented above. No acute events overnight. Patient denies any acute complaints. Able to tolerate his diet without pain. Initially planned for hepatobiliary drain insertion however equipment unavailable at this time. Patient pending transfer to facility with ERCP, spyglass, EUS. Patient updated. Case management and transfer RN aware. Joann Wise MD PGY-3 Documentation for date of: 07/08/24 Subjective Subjective Interval history: Unable to perform ERCP yesterday due to narrowing at the gastric antrum which did not allow the GI doctor to pass the scope past the stomach. GI specialist is recommending transfer to hospital that has spyglass procedure. He also recommended placing extrahepatic biliary drain by IR. Transfer has been initiated. Unable to place drain with current available equipment. Nursing staff is investigating this problem. Patient feeling well. Eating okay. Exam Vital Signs Temp Pulse Resp BP Pulse Ox O2 Del Method O2 Flow Rate 97.2 F 59 L 14 107/61 98 Room Air 2 07/08/24 12:00 07/08/24 13:53 07/08/24 13:53 07/08/24 12:00 07/08/24 12:00 07/08/24 12:00 07/08/24 00:00 Narrative Exam Constitutional: Jaundice, cachectic, frail and ill-appearing Head: Normocephalic/Atraumatic Eyes: Scleral icterus ENMT: Moist Mucous Membranes CVS: Regular rate and rhythm RESP: no increased work of breathing GI: Soft, nondistended, nontender throughout MSK: Atrophied extremities Skin: Warm to touch, Dry. Jaundiced throughout. Neuro: Alert and oriented. Psych: Appropriate mood and affect. Objective Labs 07/08/24 04:18 07/08/24 04:18 Labs: Laboratory Results - last 24 hr 07/08/24 04:18 WBC 4.8 RBC 3.69 L Hgb 11.9 L Hct 32.6 L MCV 88 MCH 32.2 MCHC 36.5 RDW Std Deviation 64.6 H Plt Count 249 D Neut % (Auto) 76 Lymph % (Auto) 17 [place] % (Auto) 7 Eos % (Auto) 0 Baso % (Auto) 0 Neut # (Auto) 3.6 Lymph # (Auto) 0.8 L [place] # (Auto) 0.3 Eos # (Auto) 0.0 Baso # (Auto) 0.0 Immature Gran # (Auto) 0.03 H Absolute Nucleated RBC 0.00 Immature Gran % 1 H Nucleated RBC % 0 PT 13.0 H INR 1.2 Sodium 133 L Potassium 3.3 L D Chloride 96 L Carbon Dioxide 26.8 Anion Gap 10 BUN 13 Creatinine 0.5 L Estim Creat Clear Calc 76.8 eGFR > 60 BUN/Creatinine Ratio 26 H Glucose 241 H D Calculated Osmolality 274 L Calcium 8.4 Corrected Calcium 9.4 Total Bilirubin 21.4 H* D Direct Bilirubin 15.8 H AST 158 H ALT 146 H Alkaline Phosphatase 798 H D Total Protein 5.9 Albumin 2.8 L Globulin 3.1 Albumin/Globulin Ratio 0.9 L Quality Measures Quality Measures none Advance care planning discussed with:: patient Assessment & Plan Assessment Current Active Medications: Generic Name Dose Route Start Last Admin Trade Name Freq PRN Reason Stop Dose Admin Dextrose 25 ml 07/04/24 23:32 Dextrose 50%-Water Inj 50 Ml Syringe IV 08/03/24 23:31 Q15MIN PRN BG 50-70 responsive npo pt Dextrose 50 ml 07/04/24 23:32 Dextrose 50%-Water Inj 50 Ml Syringe IV 08/03/24 23:31 Q15MIN PRN BG <50 OR BG <70 & pt unresponsive Glucagon 1 mg 07/04/24 23:32 Glucagon Inj 1 Mg Vial IM Q15MIN PRN BG <70, and no IV access Heparin Sodium (Porcine) 5,000 unit 07/05/24 09:00 07/08/24 09:32 Heparin Sod Inj 5000 Unit/Ml Vial SC 07/19/24 08:59 5,000 unit Q12H BARBIE Administration Piperacillin/Tazobactam/Dextrose 50 mls @ 100 mls/hr 07/05/24 09:15 07/08/24 12:59 Zosyn IV 07/12/24 09:14 100 mls/hr Q6HR BARBIE Administration Insulin Human Lispro 0 unit 07/08/24 06:00 07/08/24 12:59 Insulin Lispro (Admelog) 1 Unit/0.01 Ml Unit SC 08/07/24 05:59 1 unit Q6HR BARBIE Administration Protocol Ondansetron HCl 4 mg 07/04/24 21:34 Ondansetron Inj 2 Mg/Ml Inj 2 Ml IV 08/03/24 21:33 Q6H PRN NAUSEA OR VOMITING Protocol Pantoprazole Sodium 40 mg 07/05/24 09:00 07/08/24 09:32 Pantoprazole Inj 40 Mg Vial IVP 08/04/24 08:59 40 mg QDAY BARBIE Administration Plan Mr. Zamora is a 84-year-old male with past medical history of prostate cancer who presented to [facility] emergency department on 07/04/24 with chief complaint of yellowish discoloration of skin, increased lethargy and diarrhea. Patient admitted to hospital for further management of acute cholestasis and hyperbilirubinemia. #Acute cholestasis #Hyperbilirubinemia #Elevated alkaline phosphatase # Transaminitis Patient complained of significant jaundice, lethargy pruritus and on and off diarrhea for the last 3 weeks. Has no history of liver disease, denies following up with a primary care physician in the last 10 years, does have a history of prostate cancer. GI consulted in ED recommended admission for further workup. total bilirubin 31.1, AST 283, ALT 249, alk phos 1029 CT chest abdomen pelvis significant for bibasilar pneumonia, severe extrahepatic biliary dilatation including distended gallbladder and markedly enlarged common hepatic common bile duct, malignant ascites. MRCP showed severe extrahepatic biliary tract dilation, consider malignant stricture involving the common bile duct. Negative hepatitis panel Ddx. Cholangiocarcinoma versus ampullary Plan: -GI consulted -Attempted ERCP on 07/07 without success. Duodenum could not be intubated due to severe inflammation/tumor invasion into antrum. Recommending transfer to facility that has spyglass and IR to place a drain into extrahepatic duct. However, unable to place drain with current available appointment. Nursing staff is investigating issue. Attempting transfer at this time. -CA 19?9 pending -Empiric IV ceftriaxone (07/04), Zosyn (07/05?present) # History of prostate cancer PSA of 0.2 #Mild hypochloremic hyponatremia Will continue to monitor #Hyperglycemia A1c of 9.5 ?Sliding scale DVT prophylaxis: Heparin Q12H GI prophylaxis: Protonix IV Diet: Diabetic diet Lines: Peripheral IV Code status: Full Code Case discussed with Attending Dr. De. Jomar Schwarz, PGY1 Attending Provider Attestation/Addendum I, Estefany De DO, attest that I was physically present for the mandel portions of the service and evaluated the patient with the resident and I reviewed and discussed the case with the resident and agree with the resident's findings and plans of care as documented above. Patient seen and evaluated this AM. Friend is at bedside. Patient understanding that he will need transfer to outside hospital for ERCP with spyglass and EUS. Patient states he is feeling well. No acute events overnight otherwise. He denies any abdominal pain or fevers. Patient is agreeable to transfer. Accepted at [facility] by GI. however, GI services are not available until Thursday, plan for transfer on Thursday/Thursday.
--- NOTE | 2024-07-08 14:50 | ESPR_ITS ---
Documentation for date of: 07/08/24 Subjective Subjective Interval history: Pt was seen and examined and no abdominal pain and no new symptoms. tolerating diet. Exam Vital Signs Temp Pulse Resp BP Pulse Ox O2 Del Method O2 Flow Rate 97.2 F 59 L 14 107/61 98 Room Air 2 07/08/24 12:00 07/08/24 13:53 07/08/24 13:53 07/08/24 12:00 07/08/24 12:00 07/08/24 12:00 07/08/24 00:00 Routine Abdominal Exam Comments: Abdominal exam benign severely jaundiced Objective Labs 07/08/24 04:18 07/08/24 04:18 Labs: Laboratory Results - last 24 hr 07/08/24 04:18 WBC 4.8 RBC 3.69 L Hgb 11.9 L Hct 32.6 L MCV 88 MCH 32.2 MCHC 36.5 RDW Std Deviation 64.6 H Plt Count 249 D Neut % (Auto) 76 Lymph % (Auto) 17 [place] % (Auto) 7 Eos % (Auto) 0 Baso % (Auto) 0 Neut # (Auto) 3.6 Lymph # (Auto) 0.8 L [place] # (Auto) 0.3 Eos # (Auto) 0.0 Baso # (Auto) 0.0 Immature Gran # (Auto) 0.03 H Absolute Nucleated RBC 0.00 Immature Gran % 1 H Nucleated RBC % 0 PT 13.0 H INR 1.2 Sodium 133 L Potassium 3.3 L D Chloride 96 L Carbon Dioxide 26.8 Anion Gap 10 BUN 13 Creatinine 0.5 L Estim Creat Clear Calc 76.8 eGFR > 60 BUN/Creatinine Ratio 26 H Glucose 241 H D Calculated Osmolality 274 L Calcium 8.4 Corrected Calcium 9.4 Total Bilirubin 21.4 H* D Direct Bilirubin 15.8 H AST 158 H ALT 146 H Alkaline Phosphatase 798 H D Total Protein 5.9 Albumin 2.8 L Globulin 3.1 Albumin/Globulin Ratio 0.9 L Assessment & Plan A&P Narrative 84-year-old male with past medical history of prostate cancer with yellowish discoloration of skin, increased lethargy and diarrhea. Patient is a poor historian. all started about 3 weeks ago when he started noticing yellowish discoloration of skin, does complain of pruritus, on and off mild abdominal pain and watery diarrhea on and off. MRI: IMPRESSION: Severe extrahepatic biliary tract dilatation, consider malignant stricture involving the common bile duct Bili direct dominant obstructive pattern MRI obtained, d/w Dr. Harrison Most likely cholangiocarcinoma vs. ampullary Attempted ERCP, Duodenoscpe could not be advanced in to D1/D2 May benefit from EUS assisted ERCP vs. EDGE Dicussed with Dr. Mgcee from [facility], graciously accepted the pt. Check LFT daily Follow CA 19-9 Ensure x 3 Valeria rest of meds Will follow Time Spent With Patient Time: Total time spent is greater than 50% in coordination of care (as documented) at patient's floor/unit and/or counseling patient:
[2024-07-08] MEDS: ursodioL 300 MG CAPSULE PO ×2 (16:26→20:11)
[2024-07-09] VITALS (8 sets, daily range): BP systolic 117–138; BP diastolic 64–82; PULSE 55–64; RESP 14–18; TEMP 36.2–36.9; O2SAT 98–99
[2024-07-09] MEDS: PIPER/TAZO 3.375 GM 50 ML IV ×4 (05:40→23:24)
[2024-07-09] MEDS: ursodioL 300 MG CAPSULE PO ×3 (05:40→21:02)
[2024-07-09 05:44] LABS: Basophils % (Auto) 0 % (0-2.5); Eosinophils % (Auto) 0 % (0-10); Hematocrit 30.8 % (41.0-53.0); Hemoglobin 11.2 g/dL (13.5-16.0); Immature Granulocytes % (Auto) 1 % (0-0); Immature Granulocytes Auto 0.03 Thou/mm3 (0.00-0.00); Lymphocytes # (Auto) 0.7 Thou/mm3 (1.0-4.8); Lymphocytes % (Auto) 16 % (10-50); Mean Corpuscular HGB Conc 36.4 g/dl (31.0-37.0); Mean Corpuscular Hemoglobin 32.3 pg (25.0-35.0); Mean Corpuscular Volume 89 fL (80-100); Monocytes # (Auto) 0.3 Thou/mm3 (0.0-0.8); Monocytes % (Auto) 6 % (0-12); Neutrophils # (Auto) 3.5 Thou/mm3 (1.8-7.7); Neutrophils % (Auto) 77 % (37-80); Nucleated Red Blood Cell % 0 /100 WBC (0); Platelet Count 207 Thou/mm3 (140-440); RDW Standard Deviation 66.3 fL (35.1-43.9); Red Blood Count 3.47 Miln/mm3 (4.50-5.90); White Blood Count 4.6 Thou/mm3 (3.8-10.6)
[2024-07-09 06:20] LABS: Alanine Aminotransferase 130 U/L (10-49); Albumin, Serum 2.9 gm/dL (3.4-4.8); Alkaline Phosphatase 676 U/L (46-116); Anion Gap 8 (7-16); Aspartate Amino Transferase 140 U/L (0-34); BUN/Creatinine Ratio 43 Ratio (12-20); Bilirubin,Direct 15.9 mg/dL (0.0-0.3); Blood Urea Nitrogen 17 mg/dL (9-23); Calcium 8.3 mg/dL (8.3-10.6); Calcium (Corrected) 9.2 mg/dL (8.5-10.1); Carbon Dioxide 28.6 mMol/L (20.0-31.0); Chloride 98 mMol/L (98-107); Creatinine (Component) 0.4 mg/dL (0.6-1.3); Glucose 110 mg/dL (74-106); Osmolality,Calculated 272 (275-295); Potassium 3.8 mMol/L (3.4-5.1); Sodium 135 mMol/L (136-145); Total Protein 5.9 gm/dL (5.7-8.2); eGFR > 60 See Note
--- NOTE | 2024-07-09 07:00 | PC.NURSE ---
Received a call from Lab regarding pt's Lab value of Total Biliribun 21.8. Notify MD however no response from .
[2024-07-09 07:33] LABS: Bilirubin,Total 21.8 mg/dL (0.3-1.2)
--- NOTE | 2024-07-09 07:46 | PC.NURSE ---
call made to the Dr. Schwarz about pt. recent Bili levels of 21.8 and follow up in regards to the pt. Ursodial 300mg dosage and the frequency. No new orders yet.
[2024-07-09] MEDS: HEPARIN SOD INJ 5000 UNIT/ML VIAL SC ×2 (09:11→20:49)
[2024-07-09] MEDS: PANTOPRAZOLE INJ 40 MG VIAL IVP (09:12)
--- NOTE | 2024-07-09 10:16 | PC.CC ---
105 I found the TBA on transfer center desk. I completed and faxed back to [facility]. 1016 Received call from Trang at [facility]. She stated to complete the TBA and fax back. She confirmed that the patient will be transferred to [facility] on Thursday07/10/24.
[2024-07-09] MEDS: INSULIN LISPRO (AdmeLOG) 1 UNIT/0.01 ML UNIT SC ×3 (11:40→23:23)
--- NOTE | 2024-07-09 14:27 | ESPR_ITS ---
Documentation for date of: 07/09/24 Subjective Subjective Interval history: Patient pending transfer. He was accepted at [facility] in [place]. Will likely transfer tomorrow or Thursday. Ursodiol was changed from 4 times daily to 3 times daily. Exam Vital Signs Temp Pulse Resp BP Pulse Ox O2 Del Method O2 Flow Rate 97.1 F 64 18 126/75 98 Room Air 2 07/09/24 12:00 07/09/24 12:00 07/09/24 12:00 07/09/24 12:00 07/09/24 12:00 07/09/24 12:00 07/09/24 04:00 Narrative Exam Constitutional: Jaundice, cachectic, frail and ill-appearing Head: Normocephalic/Atraumatic Eyes: Scleral icterus ENMT: Moist Mucous Membranes CVS: Regular rate and rhythm RESP: no increased work of breathing GI: Soft, nondistended, nontender throughout MSK: Atrophied extremities Skin: Warm to touch, Dry. Jaundiced throughout. Neuro: Alert and oriented. Psych: Appropriate mood and affect. Objective Labs 07/10/24 04:30 07/10/24 05:32 Labs: Laboratory Results - last 24 hr 07/09/24 04:20 WBC 4.6 RBC 3.47 L Hgb 11.2 L Hct 30.8 L MCV 89 MCH 32.3 MCHC 36.4 RDW Std Deviation 66.3 H Plt Count 207 D Neut % (Auto) 77 Lymph % (Auto) 16 [place] % (Auto) 6 Eos % (Auto) 0 Baso % (Auto) 0 Neut # (Auto) 3.5 Lymph # (Auto) 0.7 L [place] # (Auto) 0.3 Eos # (Auto) 0.0 Baso # (Auto) 0.0 Immature Gran # (Auto) 0.03 H Absolute Nucleated RBC 0.00 Immature Gran % 1 H Nucleated RBC % 0 Sodium 135 L Potassium 3.8 D Chloride 98 Carbon Dioxide 28.6 Anion Gap 8 BUN 17 Creatinine 0.4 L Estim Creat Clear Calc 96.0 eGFR > 60 BUN/Creatinine Ratio 43 H Glucose 110 H D Calculated Osmolality 272 L Calcium 8.3 Corrected Calcium 9.2 Total Bilirubin 21.8 H* Direct Bilirubin 15.9 H AST 140 H ALT 130 H Alkaline Phosphatase 676 H D Total Protein 5.9 Albumin 2.9 L Globulin 3.0 Albumin/Globulin Ratio 1.0 L Quality Measures Quality Measures none Advance care planning discussed with:: patient Assessment & Plan Assessment Current Active Medications: Generic Name Dose Route Start Last Admin Trade Name Freq PRN Reason Stop Dose Admin Dextrose 25 ml 07/04/24 23:32 Dextrose 50%-Water Inj 50 Ml Syringe IV 08/03/24 23:31 Q15MIN PRN BG 50-70 responsive npo pt Dextrose 50 ml 07/04/24 23:32 Dextrose 50%-Water Inj 50 Ml Syringe IV 08/03/24 23:31 Q15MIN PRN BG <50 OR BG <70 & pt unresponsive Glucagon 1 mg 07/04/24 23:32 Glucagon Inj 1 Mg Vial IM Q15MIN PRN BG <70, and no IV access Heparin Sodium (Porcine) 5,000 unit 07/05/24 09:00 07/09/24 09:11 Heparin Sod Inj 5000 Unit/Ml Vial SC 07/19/24 08:59 5,000 unit Q12H BARBIE Administration Piperacillin/Tazobactam/Dextrose 50 mls @ 100 mls/hr 07/05/24 09:15 07/09/24 12:14 Zosyn IV 07/12/24 09:14 100 mls/hr Q6HR BARBIE Administration Insulin Human Lispro 0 unit 07/08/24 06:00 07/09/24 11:40 Insulin Lispro (Admelog) 1 Unit/0.01 Ml Unit SC 08/07/24 05:59 1 unit Q6HR BARBIE Administration Protocol Ondansetron HCl 4 mg 07/04/24 21:34 Ondansetron Inj 2 Mg/Ml Inj 2 Ml IV 08/03/24 21:33 Q6H PRN NAUSEA OR VOMITING Protocol Pantoprazole Sodium 40 mg 07/05/24 09:00 07/09/24 09:12 Pantoprazole Inj 40 Mg Vial IVP 08/04/24 08:59 40 mg QDAY BARBIE Administration Ursodiol 300 mg 07/08/24 17:00 07/09/24 12:16 Ursodiol 300 Mg Capsule PO 08/07/24 16:59 300 mg QID BARBIE Administration Plan Mr. Zamora is a 84-year-old male with past medical history of prostate cancer who presented to [facility] emergency department on 02/03/25 with chief complaint of yellowish discoloration of skin, increased lethargy and diarrhea. Patient admitted to hospital for further management of acute cholestasis and hyperbilirubinemia. #Acute cholestasis #Hyperbilirubinemia #Elevated alkaline phosphatase # Transaminitis Patient complained of significant jaundice, lethargy pruritus and on and off diarrhea for the last 3 weeks. Has no history of liver disease, denies following up with a primary care physician in the last 10 years, does have a history of prostate cancer. GI consulted in ED recommended admission for further workup. total bilirubin 31.1, AST 283, ALT 249, alk phos 1029 CT chest abdomen pelvis significant for bibasilar pneumonia, severe extrahepatic biliary dilatation including distended gallbladder and markedly enlarged common hepatic common bile duct, malignant ascites. MRCP showed severe extrahepatic biliary tract dilation, consider malignant stricture involving the common bile duct. Negative hepatitis panel Ddx. Cholangiocarcinoma versus ampullary Plan: -GI consulted -Attempted ERCP on 07/07 without success. Duodenum could not be intubated due to severe inflammation/tumor invasion into antrum. Recommending transfer to facility that has spyglass and IR to place a drain into extrahepatic duct. However, unable to place drain with current available equipment. Nursing staff is investigating issue. ?Patient accepted at [facility] in [place]. Will likely transfer tomorrow or Thursday. -CA 19?9 pending -Empiric IV ceftriaxone (07/04), Zosyn (07/05?present) -On Ursodiol # History of prostate cancer PSA of 0.2 #Mild hypochloremic hyponatremia Will continue to monitor #Hyperglycemia A1c of 9.5 ?Sliding scale DVT prophylaxis: Heparin Q12H GI prophylaxis: Protonix IV Diet: Diabetic diet Lines: Peripheral IV Code status: Full Code Case discussed with Attending Dr. De. Jomar Schwarz, PGY1 Attending Provider Attestation/Addendum Ashwini, Estefany De, DO, attest that I was physically present for the mandel portions of the service and evaluated the patient with the resident and I reviewed and discussed the case with the resident and agree with the resident's findings and plans of care as documented above. Patient seen and evaluated this AM. Patient without any active complaints. Bilirubin downtrending. Pending transfer tomorrow or Thursday for advanced GI.
[2024-07-10] VITALS: BP 120/70; PULSE 58; RESP 15; TEMP 36.3; O2SAT 99
[2024-07-10 04:00] VITALS: BP 138/78; PULSE 56; PULSE 60; RESP 15; TEMP 36.2; O2SAT 95
--- NOTE | 2024-07-10 04:06 | PC.NURSE ---
Received a call from [employer] that pt had Bigeminy rhythm. Checked the pt. and pt had no complain of any chest pain. Notify MD, no new orders received.
[2024-07-10 05:41] LABS: Basophils % (Auto) 0 % (0-2.5); Eosinophils % (Auto) 0 % (0-10); Hematocrit 28.5 % (41.0-53.0); Hemoglobin 10.4 g/dL (13.5-16.0); Immature Granulocytes % (Auto) 1 % (0-0); Immature Granulocytes Auto 0.04 Thou/mm3 (0.00-0.00); Lymphocytes # (Auto) 0.8 Thou/mm3 (1.0-4.8); Lymphocytes % (Auto) 17 % (10-50); Mean Corpuscular HGB Conc 36.5 g/dl (31.0-37.0); Mean Corpuscular Hemoglobin 32.6 pg (25.0-35.0); Mean Corpuscular Volume 89 fL (80-100); Monocytes # (Auto) 0.4 Thou/mm3 (0.0-0.8); Monocytes % (Auto) 8 % (0-12); Neutrophils # (Auto) 3.7 Thou/mm3 (1.8-7.7); Neutrophils % (Auto) 74 % (37-80); Nucleated Red Blood Cell % 0 /100 WBC (0); Platelet Count 223 Thou/mm3 (140-440); RDW Standard Deviation 66.4 fL (35.1-43.9); Red Blood Count 3.19 Miln/mm3 (4.50-5.90); White Blood Count 4.9 Thou/mm3 (3.8-10.6)
[2024-07-10] MEDS: PIPER/TAZO 3.375 GM 50 ML IV ×2 (05:50→12:22)
[2024-07-10] MEDS: ursodioL 300 MG CAPSULE PO ×2 (05:50→13:25)
[2024-07-10 06:23] LABS: Alanine Aminotransferase 110 U/L (10-49); Albumin, Serum 2.8 gm/dL (3.4-4.8); Albumin/Globulin Ratio 0.9 (1.2-2.2); Alkaline Phosphatase 601 U/L (46-116); Anion Gap 5 (7-16); Aspartate Amino Transferase 90 U/L (0-34); BUN/Creatinine Ratio 20 Ratio (12-20); Bilirubin,Direct 15.6 mg/dL (0.0-0.3); Blood Urea Nitrogen 12 mg/dL (9-23); Calcium 8.4 mg/dL (8.3-10.6); Calcium (Corrected) 9.4 mg/dL (8.5-10.1); Carbon Dioxide 30.7 mMol/L (20.0-31.0); Chloride 98 mMol/L (98-107); Creatinine (Component) 0.6 mg/dL (0.6-1.3); Glucose 105 mg/dL (74-106); Osmolality,Calculated 267 (275-295); Sodium 134 mMol/L (136-145); Total Protein 5.8 gm/dL (5.7-8.2); eGFR > 60 See Note
[2024-07-10 06:25] LABS: Bilirubin,Total 21.2 mg/dL (0.3-1.2)
[2024-07-10 07:41] VITALS: PULSE 54
[2024-07-10 08:00] VITALS: BP 124/77; PULSE 57; RESP 18; TEMP 36.3; O2SAT 99
--- NOTE | 2024-07-10 08:12 | PC.CC ---
Addendum entered by Amauri Gerard RN 07/10/24 17:46: 1742 called [facility], spoke to Kevin and informed about bulk picker time is 1815. Addendum entered by Amauri Gerard RN 07/10/24 17:42: 1630 transfer packet is complete with CD inside including all signatures, gave it to community support professional. Number to call for report given to bedside nurse . Addendum entered by Amauri Gerard RN 07/10/24 16:20: 1605 sent paperwork to [facility] through [employer]. [facility] spoke to Damian and setup the transport. superintendent car construction time is 1815. Addendum entered by Amauri Gerard RN 07/10/24 16:01: 1547 received call from Katt at [facility] that she has the bed for the pt. Pt is going to [facility]. Address [address] [place] [address]. Room [address] is Dr. Sharpe. Call report at [phone]. Ext [phone]. Addendum entered by Amauri Gerard RN 07/10/24 15:36: 1522 received call from Katt at [facility]. She stated she has the bed but it is different hospitalist now. She asked for who will do peer-to peer. I called Dr. eD and she said it will be Dr. Wise and gave direct number of Dr. Mcconnell. I gave the info and updated clinicals to [facility]. Addendum entered by Amauri Gerard RN 07/10/24 09:17: [address] De and updated waiting for bed availability but they might not have bed today depends upon discharges. Addendum entered by Amauri Gerard RN 07/10/24 08:56: 0840 received call from Katt at [facility]. She stated waiting for bed availability but she doesn't know if it will be available today depends upon the discharges. . Original Note: 08 called [facility], spoke to Trang for bed availability. Trang stated she will call be when bed is available.
[2024-07-10] MEDS: HEPARIN SOD INJ 5000 UNIT/ML VIAL SC (08:17)
[2024-07-10] MEDS: PANTOPRAZOLE INJ 40 MG VIAL IVP (08:18)
[2024-07-10] MEDS: POTASSIUM CHLORIDE 20 mEq TABCR 40 MEQ PO ×2 (08:25→13:25)
--- NOTE | 2024-07-10 10:03 | PD.RESPRO ---
Documentation for date of: 07/10/24 Subjective Subjective Interval history: Patient seen and examined at bedside. He is sitting up right, eating breakfast. No acute events or complaints overnight. Exam Vital Signs Temp Pulse Resp BP Pulse Ox O2 Del Method O2 Flow Rate 97.4 F 57 L 18 124/77 99 Room Air 2 07/10/24 08:00 07/10/24 08:00 07/10/24 08:00 07/10/24 08:00 07/10/24 08:00 07/10/24 08:00 07/09/24 04:00 Narrative Exam Constitutional: Elderly, frail, no acute distress. HEENT: NCAT. Vision grossly intact. Scleral icterus. Respiratory: CTAB bilaterally. Cardiac: RRR. Abdomen: Soft, non-distended, non-tender. No guarding, no rebound. MSK: No B/L LE edema. Skin: Warm, dry, intact. Jaundiced. Neuro: Motor and sensation grossly intact. Psychiatric: Appropriate mood and affect. Objective Labs 07/10/24 04:30 07/10/24 12:45 Labs: Laboratory Results - last 24 hr 07/10/24 07/10/24 04:30 05:32 WBC 4.9 RBC 3.19 L Hgb 10.4 L Hct 28.5 L MCV 89 MCH 32.6 MCHC 36.5 RDW Std Deviation 66.4 H Plt Count 223 Neut % (Auto) 74 Lymph % (Auto) 17 [place] % (Auto) 8 Eos % (Auto) 0 Baso % (Auto) 0 Neut # (Auto) 3.7 Lymph # (Auto) 0.8 L [place] # (Auto) 0.4 Eos # (Auto) 0.0 Baso # (Auto) 0.0 Immature Gran # (Auto) 0.04 H Absolute Nucleated RBC 0.00 Immature Gran % 1 H Nucleated RBC % 0 Sodium 134 L Potassium 3.0 L D Chloride 98 Carbon Dioxide 30.7 Anion Gap 5 L BUN 12 Creatinine 0.6 Estim Creat Clear Calc 64.0 eGFR > 60 BUN/Creatinine Ratio 20 Glucose 105 Calculated Osmolality 267 L Calcium 8.4 Corrected Calcium 9.4 Total Bilirubin 21.2 H* D Direct Bilirubin 15.6 H AST 90 H ALT 110 H Alkaline Phosphatase 601 H D Total Protein 5.8 Albumin 2.8 L Globulin 3.0 Albumin/Globulin Ratio 0.9 L Quality Measures Quality Measures none Advance care planning discussed with:: patient Assessment & Plan Assessment Current Active Medications: Generic Name Dose Route Start Last Admin Trade Name Freq PRN Reason Stop Dose Admin Dextrose 25 ml 07/04/24 23:32 Dextrose 50%-Water Inj 50 Ml Syringe IV 08/03/24 23:31 Q15MIN PRN BG 50-70 responsive npo pt Dextrose 50 ml 07/04/24 23:32 Dextrose 50%-Water Inj 50 Ml Syringe IV 08/03/24 23:31 Q15MIN PRN BG <50 OR BG <70 & pt unresponsive Glucagon 1 mg 07/04/24 23:32 Glucagon Inj 1 Mg Vial IM Q15MIN PRN BG <70, and no IV access Heparin Sodium (Porcine) 5,000 unit 07/05/24 09:00 07/10/24 08:17 Heparin Sod Inj 5000 Unit/Ml Vial SC 07/19/24 08:59 5,000 unit Q12H BARBIE Administration Piperacillin/Tazobactam/Dextrose 50 mls @ 100 mls/hr 07/05/24 09:15 07/10/24 05:50 Zosyn IV 07/12/24 09:14 100 mls/hr Q6HR BARBIE Administration Insulin Human Lispro 0 unit 07/08/24 06:00 07/10/24 05:51 Insulin Lispro (Admelog) 1 Unit/0.01 Ml Unit SC 08/07/24 05:59 Not Given Q6HR BARBIE Protocol Ondansetron HCl 4 mg 07/04/24 21:34 Ondansetron Inj 2 Mg/Ml Inj 2 Ml IV 08/03/24 21:33 Q6H PRN NAUSEA OR VOMITING Protocol Pantoprazole Sodium 40 mg 07/05/24 09:00 07/10/24 08:18 Pantoprazole Inj 40 Mg Vial IVP 08/04/24 08:59 40 mg QDAY BARBIE Administration Potassium Chloride 40 meq 07/10/24 12:00 Potassium Chloride 20 Meq Tabcr PO 07/10/24 12:01 X1 ONE Ursodiol 300 mg 07/09/24 22:00 07/10/24 05:50 Ursodiol 300 Mg Capsule PO 08/08/24 21:59 300 mg TID BARBIE Administration Plan Mr. Zamora is a 84-year-old male with past medical history of prostate cancer who presented to [facility] emergency department on 07/04/24 with chief complaint of jaundice, lethargy, and diarrhea and admitted for acute cholestasis and hyperbilirubinemia. #Acute cholestasis #Hyperbilirubinemia Differential diagnosis include cholangiocarcinoma versus ampullary Patient complained of significant jaundice, lethargy pruritus and on and off diarrhea for the last 3 weeks. No history of liver disease. Significantly elevated LFTs. Hepatitis panel negative. - CT chest abdomen pelvis significant for bibasilar pneumonia, severe extrahepatic biliary dilatation including distended gallbladder and markedly enlarged common hepatic common bile duct, malignant ascites. - MRCP: extrahepatic biliary tract dilation, consider malignant stricture involving the common bile duct. - ERCP 07/07 unsuccessful: Duodenum could not be intubated due to severe inflammation/tumor invasion into antrum. - IR unable to place hepatobiliary drain due to equipment issue - GI recommend transfer to facility with ERCP, spyglass, EUS. Plan: - Patient accepted at [facility] in [place], anticipate transfer 07/10 or 07/11 depening on bed availability. - CA-19-9 pending - Empiric antibiotics: ceftriaxone (07/04), zosyn (2-present) - Urosdiol 300mg po TID #New onset DM2, A1c 9.5 - ISS #History of prostate cancer PSA 0.2 Health Maintenance Disposition: Pending transfer 07/10 or 07/11 Diet and fluids: carb consistent DVT prophylaxis: heparin GI prophylaxis: protonix Lines: PIV CODE STATUS: FULL I have reviewed and discussed the patient's care with my attending, Dr. Santino Wise MD PGY-3 Attending Provider Attestation/Addendum I, Estefany De DO, attest that I was physically present for the mandel portions of the service and evaluated the patient with the resident and I reviewed and discussed the case with the resident and agree with the resident's findings and plans of care as documented above Patient seen and evaluated this AM. No acute events overnight. He states he is feeling well and has no acute complaints. Pending transfer to [place] for advanced GI w/u. Patient agrees to transfer and remains stable.
[2024-07-10 12:00] VITALS: BP 139/79; PULSE 59; RESP 12; TEMP 36.2; O2SAT 98
[2024-07-10 13:15] LABS: Potassium 3.1 mMol/L (3.4-5.1)
[2024-07-10 16:00] VITALS: BP 141/79; PULSE 64; PULSE 65; RESP 15; TEMP 36.2; O2SAT 97
--- NOTE | 2024-07-10 16:32 | ESDS_ITS ---
<Statement entered by Estefany De DO - 07/11/24 07:54> I, Estefany De DO, attest that I was physically present for the mandel portions of the service and evaluated the patient with the resident and I reviewed and discussed the case with the resident and agree with the resident's findings and plans of care as documented above Planned Discharge Date 07/10/24 DS: Providers Provider Date of admission: 07/04/24 21:34 Primary care physician: Physician No Primary/Family Admitting Provider: Lashay Rollins MD Attending Provider on Admission: Estefany De DO Consults: 07/04/24 22:16 Consult to Gastroenterology Stat Comment: Acute Cholangitis Consulting Provider: Joey Mcnulty 07/04/24 22:17 Referral Registered Dietitian Routine Comment: Severe PCM 07/05/24 08:00 Referral Registered Dietitian Routine Comment: 07/05/24 09:31 Referral Physical Therapy Routine Comment: Physician Instructions: 07/07/24 15:51 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 He has a distant history of alcohol and cocaine use in the 1960s. He denies any current drug or alcohol use. Last time he saw a physician was more than 10 years ago. Vitals were stable. Initial labs were significant for hyperbilirubinemia at 31, ALP 1029, and AST and ALT in the 200s. CT imaging of the abdomen showed Severe extrahepatic biliary tract dilatation including distended gallbladder and markedly enlarged common hepatic common bile duct; malignant ascites. MRCP showed Severe extrahepatic biliary tract dilatation, consider malignant stricture involving the common bile duct. ERCP was attempted however the duodenum was intubated with extreme difficulty due to severe inflammation/tumor invasion in the antrum/pyloris. A biopsy was obtained from the antral mucosa. The vp care management performing the ERCP recommended a hepatobiliary drain into the extra-hepatic duct, however the equipment to do so was unavailable. It was recommended the patient to be transferred to a facility to get a repeat ERCP and Spyglass, and EUS. He was empirically treated with antibiotics (zosyn) and urosodiol. He has been tolerating oral intake and has not had any acute complaints. Electrolytes were repleted daily. His total blirubin and LFTs have downtrended but remain elevated. He is ambulatory with assistance. Of note, patient was also newly diagnosed with diabetes (A1c 9.5) on this hospital admission. Patient is stable to be transferred. 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 Santino Wise MD PGY-3 Status at Discharge Overall status at discharge: patient is progressing back to baseline Time Spent with Patient Time attestation: Total time spent providing and/or coordinating discharge services: 35 min Time spent: Greater than 30 minutes Exam Vital Signs Temp Pulse Resp BP Pulse Ox O2 Del Method O2 Flow Rate 97.2 F 65 15 153/90 H 97 Room Air 2 07/10/24 16:00 07/10/24 16:00 07/10/24 16:00 07/10/24 16:00 07/10/24 16:00 07/10/24 16:00 07/09/24 04:00 Narrative Exam Constitutional: Elderly, frail, no acute distress. HEENT: NCAT. Vision grossly intact. Scleral icterus. Respiratory: CTAB bilaterally. Cardiac: RRR. Abdomen: Soft, non-distended, non-tender. No guarding, no rebound. MSK: No B/L LE edema. Skin: Warm, dry, intact. Jaundiced. Neuro: Motor and sensation grossly intact. Psychiatric: Appropriate mood and affect. Discharge Plan Plan Patient Disposition: Xfer Other Facility Pt Being Transferred to: [facility] Service Needed for Transfer: Gastroenterology Prescriptions/Referrals Prescriptions/Med Rec: No Action No Known Home Medications Referrals: No Primary/Family,Physician [Primary Care Provider] - Patient/Caregiver Discharge Instructions Education Materials: Cancer Risks for Anderson and ..., ERCP, Interstitial Brachytherapy Print Language: Setswana Stand Alone Forms: Brandi Award Info., Patient Portal Info Letter Discharge Order Discharge Orders: Discharge (Routine); Ordered 07/10/24 Ordered By: Joann Wise Quality Discharge Quality Measures VTE prophylaxis
--- NOTE | 2024-07-10 17:18 | PC.NURSE ---
Tx nurse Gee notified. Pt. expected time of leaving for [facility] is at 1800. The Report given to the ALEXEI Sibley at the [facility].
--- NOTE | 2024-07-10 18:05 | PC.NURSE ---
[facility] ambulance came to [facility] pt. to transported to the [facility] . Repot been given to the nurse Dima at [facility].
[2024-07-12 06:49] LABS: CA 19-9 Antigen* 1133 U/mL (<34)
== END 2024-07-10 18:24 | disposition short-term general hospital (02) | DRG 445 ==
LOC: SERX 19:44 → SERHOLD 22:21 → S3NX 07-05 02:00
PROVIDERS: Internal Medicine Gastroenterology; Physician Assistant; Student in an Organized Health Care Education/Training Program; Admitting Provider Student in an Organized Health Care Education/Training Program; Emergency Provider Emergency Medicine; Visit Provider Internal Medicine
PROC: 0FJB8ZZ Inspection of Hepatobiliary Duct, Via Natural or Artificial Opening Endoscopic (ICD-10-PCS; CPT 43260; principal; 2024-07-07 14:00)
DX: K83.1 Obstruction of bile duct (principal); C24.9 Malignant neoplasm of biliary tract, unspecified; E87.1 Hypo-osmolality and hyponatremia; R64 Cachexia; Z68.1 Body mass index [BMI] 19.9 or less, adult; D49.0 Neoplasm of unspecified behavior of digestive system; L29.9 Pruritus, unspecified; E11.65 Type 2 diabetes mellitus with hyperglycemia; E87.8 Other disorders of electrolyte and fluid balance, not elsewhere classified; Z85.46 Personal history of malignant neoplasm of prostate; Z85.028 Personal history of other malignant neoplasm of stomach; Z92.21 Personal history of antineoplastic chemotherapy; Z92.3 Personal history of irradiation; Z90.79 Acquired absence of other genital organ(s)
CPT/HCPCS: 36415; 71260; 74177; 74183; 80053; 80061; 80074; 80076; 80307; 80329; 81001; 82140; 82248; 83036; 83615; 83735; 84100; 84132; 84134; 84153; 84439; 84443; 84484; 85025; 85610; 85730; 86301; 86703; 87811; 93005; 93225; 97162; 99285; A4217; A4649; A9579; J0696; J1100; J1643; J1815; J2371; J2405; J2470; J2543; J2704; J3010; J3475; J3490; J7030; J7050; J7120; Q9967; A9270; G0480; J1805

== ENCOUNTER 2024-07-15 11:23 | Inpatient (IN) | payer MEDICARE, MEDICAID, SELFPAY ==
[2024-07-15] VITALS (8 sets, daily range): BP systolic 118–175; BP diastolic 51–86; PULSE 51–86; RESP 12–100; TEMP 36.5–36.8; O2SAT 98–100; BMI 19.8
--- NOTE | 2024-07-15 11:29 | PD.EDAMS ---
Altered Mental Status RME/HPI General Chief Complaint: Altered Mental Status Stated Complaint: ALTERED MENTAL STATUS Time Seen by Provider: 07/15/24 11:26 Arrival date/time: 07/15/24 11:23 RME / HPI RME / HPI narrative: 84-year-old male patient with significant history of prostate cancer, with mets, was brought in by EMS for evaluation regarding altered mental status. Onset of symptoms since early this morning as patient was witnessed having altered mental status severity mild. Patient was also noted to be eating less and less active than usual. Patient was seen in this hospital and admitted and was discharge 5 days ago for painless jaundice, with total bili of 31. ERCP was attempted by Dr. Ann, and it was unsuccessful due to difficulty of the procedure secondary to invasive tumors noted on the duodenum. Recommended to have biliary drain however the equipment is not available. Patient was transferred to [facility] in [place]. According to the patient nothing was done in the hospital but according to Dr. Ann patient had a biliary stent placement. Patient on my initial evaluation is alert and oriented x 2. He denies any fever he denies any abdominal pain. Related Data Home Medications ?Medication ?Instructions ?Recorded ?Confirmed No Known Home Medications 07/05/24 07/05/24 Allergies Allergy/AdvReac Type Severity Reaction Status Date / Time No Known Allergies Allergy Verified 07/04/24 14:51 Review of Systems Review of Systems Narrative Review of Systems: Review of system reviewed and within normal limits except mentioned in HPI ED Exam Narrative Physical exam: VITAL SIGNS: Reviewed. GENERAL APPEARANCE: Alert and interactive, follows commands, no acute distress, cachectic, severely jaundiced HEAD AND FACE: Non-traumatic. ENT: PERRL, icteric sclera, eyelid no trauma, Mucous membrane moist. NECK: Supple, nontender, no nuchal rigidity. CHEST: No tenderness, no crepitus, no paradoxical movement, no retractions. LUNGS: Clear, well ventilated, symmetric, no rales, no wheezing, no ronchi, no stridor, good breath sounds bilaterally. HEART: Regular rate, regular rhythm, no murmur, no gallops. ABDOMEN: Soft, positive bowel sounds, nondistended, no guarding, nontender, no rebound, no masses, RECTAL: Deferred. GENITAL: Deferred. NEUROLOGICAL: Gross motor function intact sensory function intact, Appropriate for age. MUSCULOSKELETAL: low back nontender, full range of motion. EXTREMITIES: Nontender, full range of motion. SKIN: Color jaundice dry, no rash, no lacerations, no abrasions, no contusions. LYMPHATICS: Deferred. Course Quality Measures none Orders Category Date Time Status COVID-19 Screening Questionnaire NOW Care 07/15/24 16:[address] Screening NOW Care 07/15/24 12:04 Active Decision to Admit X1 Care 07/15/24 16:45 Active EKG (ED ONLY) *Do not use* NOW Care 07/15/24 11:27 Completed Consult to Gastroenterology Stat Cons 07/15/24 16:[address] abdomen pelvis w con Stat Exams 07/15/24 12:04 Completed EKG (ED Only) Stat Exams 07/15/24 11:27 Ordered NM HIDA w pharm Stat Exams 07/15/24 16:46 Ordered Ammonia Stat Lab 07/15/24 11:54 Completed Bilirubin,Direct Stat Lab 07/15/24 11:54 Completed Blood Culture (Lab) Stat Lab 07/15/24 15:50 Received CBC Stat Lab 07/15/24 11:54 Completed Comprehensive Metabolic Panel Stat Lab 07/15/24 11:54 Completed Lactate (Lactic Acid) Stat Lab 07/15/24 11:54 Completed Lactic Acid, 3 HR Stat Lab 07/15/24 15:50 Completed Lipase Stat Lab 07/15/24 11:54 Completed Partial Thromboplastin Time Stat Lab 07/15/24 11:54 Completed Procalcitonin Stat Lab 07/15/24 11:54 Completed Prothrombin Time with INR Stat Lab 07/15/24 11:54 Completed UA, C/S IF [Urinalysis, C/S if Indicated] Stat Lab 07/15/24 14:57 Completed Piper/Tazo 3.375 gm [Zosyn] Med 07/15/24 16:30 Discontinued 3.375 gm in 50 ml IV X1 Sodium Chloride 0.9% 1000 ml [Ns] 1,000 ml Med 07/15/24 11:29 Discontinued IV 999 mls/hr Sodium Chloride 0.9% 1000 ml [Ns] 1,000 ml Med 07/15/24 16:31 Discontinued IV 999 mls/hr Vital Signs Vital signs: Vital Signs Temperature 98.3 F 07/15/24 11:28 Pulse Rate 69 07/15/24 11:28 Respiratory Rate 19 07/15/24 11:28 Blood Pressure 118/51 L 07/15/24 11:28 Pulse Oximetry (%) 98 07/15/24 11:28 Oxygen Delivery Method Room Air 07/15/24 11:28 Altered Mental Status [facility] Narrative [facility] Narrative:: 84-year-old male patient with significant history of prostate cancer, [id number] male patient with significant history of prostate cancer, with mets, was brought in by EMS for evaluation regarding altered mental status. Onset of symptoms since early this morning as patient was witnessed having altered mental status severity mild. Patient was also noted to be eating less and less active than usual. Patient was seen in this hospital and admitted and was discharge 5 days ago for painless jaundice, with total bili of 31. ERCP was attempted by Dr. Ann, and it was unsuccessful due to difficulty of the procedure secondary to invasive tumors noted on the duodenum. Recommended to have biliary drain however the equipment is not available. Patient was transferred to [facility] in [place]. According to the patient nothing was done in the hospital but according to Dr. Ann patient had a biliary stent placement. Patient on my initial evaluation is alert and oriented x 2. He denies any fever he denies any abdominal pain. Spoke with Dr. Ann, discussed the case including the laboratory workup and findings, told me to admit the patient IV Zosyn and IV fluids he will follow-up with the patient. Patient's LFTs, are getting better than 5 days ago. Patient's lactic acid today was noted to be 3.1. No leukocytosis noted. Urinalysis no UTI CT scan of the abdomen showed biliary stent narrowing. Spoke with hospitalist, who admitted the patient. Patient data External records reviewed:: None Clinical information provided by:: patient Social determinants that could affect healthcare access:: none Patient has the following chronic illnesses:: Prostate cancer with mets, painless jaundice, transaminitis hyperbilirubinemia How is presenting disease/condition affected by chronic disease/condition?: caused by Evaluation data The following diagnostics were reviewed and interpreted by me:: lab results and radiology exam(s) Lab and/or radiology exams considered but not ordered:: None Interpretation Summary: EKG showed normal sinus rhythm, ventricular to 71 bpm, no ST segment elevation depression noted. See results in MDM Medications / Prescriptions Medications or Prescriptions considered but not ordered:: None Medication administrations:: Medication Administration History Discontinued Medications Sodium Chloride (Ns) 1,000 mls @ 999 mls/hr IV .Q1H1M ONE Stop: 07/15/24 12:29 Last Infusion: 07/15/24 13:31 Dose: Infused Documented By: Admin: 07/15/24 12:23 Dose: 999 mls/hr Documented By: GM Piperacillin/Tazobactam/Dextrose (Zosyn) 3.375 gm in 50 mls @ 100 mls/hr IV X1 ONE Stop: 07/15/24 16:59 Sodium Chloride (Ns) 1,000 mls @ 999 mls/hr IV .Q1H1M ONE Stop: 07/15/24 17:31 IV Zosyn IV fluids Consultations Consultation(s) initiated? (list below): Yes Consultation #1 (Physician, Specialty, Details): Dr. Ann, thank you DrHardik Diagnosis Differential diagnosis altered mental status: altered mental status and sepsis Most likely diagnosis given after review of the tests above:: Transaminitis, hyperbilirubinemia, prostate cancer with mets Admission Indicated Admission indicated?: indicated Explain why admission is indicated or not indicated:: Patient is to be admitted for further management Admission Request Was there a request for admission?: Yes Admission Attestation Admission request attestation: Discussed case with Dr. Hartley[] from Hospitalist service regarding admission. Discussed patients ED course, exam findings, labs, and radiology results. The Hospitalist [agrees,] to accept the patient for admission. Disposition Plan Disposition Plan: Admit Discharge Plan Plan Patient Disposition: Admit Acute Care w/in Hospital Disposition Comment: Stable Prescriptions/Referrals Prescriptions/Med Rec: No Action No Known Home Medications Referrals: No Primary/Family,Physician [Primary Care Provider] - In 1 week Problem List Clinical Impression: Painless jaundice, History of prostate cancer, Altered mental status, Transaminitis Patient/Caregiver Discharge Instructions Print Language: Kyrgyz Stand Alone Forms: Brandi Award Info., Patient Portal Info Letter
--- NOTE | 2024-07-15 12:04 | XR_ITS ---
Examination: CT abdomen with intravenous contrast CT pelvis with intravenous contrast 2-D coronal reconstructions 2-D sagittal reconstructions Date and time of exam:July 15, 2024 1525 hours INDICATIONS: Abdominal pain this week, history elevated total bili recommend, post biliary stent for extrahepatic biliary tract dilatation., Diagnosis gastric cancer CTDI: vol (mGy) 4.7 DLP: (mGycm) 266 Technique: Multiple axial sections of the abdomen and pelvis have been obtained. 64 slice high-resolution scanner used. 3 mm axial sections have been obtained, post intravenous injection 60 cc [id number] 2-D sagittal, coronal reconstructions obtained. Low dose protocols were performed. One or more of the following dose reduction techniques were used; automated exposure control, adjustment of the mA and/or KV according to patient size, use of iterative reconstruction technique. Findings: Small bilateral pleural effusions Pneumobilia Distended gallbladder with sludge versus stones Severe narrowing of the patient's biliary stent, axial image 75, coronal image 49 Dilated pancreatic duct Ascites Subcentimeter retroperitoneal lymph nodes No hydronephrosis No bowel obstruction Intact urinary bladder Moderate osteopenia IMPRESSION: Severe narrowing of the patient's biliary stent
[2024-07-15 12:18] LABS: Lactate (Lactic Acid) 3.1 mMol/L (0.4-2.0)
[2024-07-15 12:21] LABS: Basophils % (Auto) 0 % (0-2.5); Eosinophils % (Auto) 0 % (0-10); Hematocrit 27.6 % (41.0-53.0); Hemoglobin 9.7 g/dL (13.5-16.0); Immature Granulocytes % (Auto) 1 % (0-0); Immature Granulocytes Auto 0.03 Thou/mm3 (0.00-0.00); Lymphocytes # (Auto) 0.9 Thou/mm3 (1.0-4.8); Lymphocytes % (Auto) 15 % (10-50); Mean Corpuscular HGB Conc 35.1 g/dl (31.0-37.0); Mean Corpuscular Hemoglobin 33.2 pg (25.0-35.0); Mean Corpuscular Volume 95 fL (80-100); Monocytes # (Auto) 0.5 Thou/mm3 (0.0-0.8); Monocytes % (Auto) 8 % (0-12); Neutrophils # (Auto) 4.7 Thou/mm3 (1.8-7.7); Neutrophils % (Auto) 76 % (37-80); Nucleated Red Blood Cell % 0 /100 WBC (0); Platelet Count 258 Thou/mm3 (140-440); RDW Standard Deviation 65.6 fL (35.1-43.9); Red Blood Count 2.92 Miln/mm3 (4.50-5.90); White Blood Count 6.2 Thou/mm3 (3.8-10.6)
[2024-07-15] MEDS: SODIUM CHLORIDE 0.9% 1000 ML 1,000 ML 999 ML IV ×2 (12:23→18:01)
[2024-07-15 12:37] LABS: INR 1.1 (0.9-1.3); Partial Thromboplastin Time 31.4 Seconds (22.0-36.0)
[2024-07-15 12:38] LABS: Ammonia 15 uMol/L (11-32)
[2024-07-15 13:12] LABS: Alanine Aminotransferase 78 U/L (10-49); Albumin, Serum 3.1 gm/dL (3.4-4.8); Alkaline Phosphatase 497 U/L (46-116); Anion Gap 7 (7-16); Aspartate Amino Transferase 81 U/L (0-34); BUN/Creatinine Ratio 36 Ratio (12-20); Bilirubin,Direct 8.1 mg/dL (0.0-0.3); Bilirubin,Total 10.8 mg/dL (0.3-1.2); Blood Urea Nitrogen 18 mg/dL (9-23); Calcium 8.8 mg/dL (8.3-10.6); Calcium (Corrected) 9.5 mg/dL (8.5-10.1); Carbon Dioxide 29.9 mMol/L (20.0-31.0); Chloride 101 mMol/L (98-107); Creatinine (Component) 0.5 mg/dL (0.6-1.3); Globulin 3.1 gm/dL (2.3-3.5); Glucose 345 mg/dL (74-106); Lipase 246 U/L (12-53); Osmolality,Calculated 291 (275-295); Potassium 4.1 mMol/L (3.4-5.1); Procalcitonin 0.34 ng/ml (0.0-0.49); Sodium 138 mMol/L (136-145); Total Protein 6.2 gm/dL (5.7-8.2); eGFR > 60 See Note
--- NOTE | 2024-07-15 13:40 | PC.CC ---
Ina CASTRO was consulted by ALYSIA Diez regarding possible SNF placement for patient.
[2024-07-15 15:09] LABS: Collection Type, Urine Clean Catch; Squamous Epithelial Cell,Urine 0 /hpf (0-5)
[2024-07-15 15:17] LABS: Reflex Lactate? Y
[2024-07-15 15:37] LABS: Blood,Urine Negative (Negative); Clarity,Urine Clear (Clear/Hazy); Color,Urine Drk-Yellow (Lt Yel-Yel); Culture Indicated,Urine Not Indicated; Glucose, Urine 4+ (Negative); Ketones,Urine Negative (Negative); Leukocyte Esterase,Urine Negative (Negative); Nitrite,Urine Negative (Negative); PH,Urine 7.5 (5.0-7.0); Protein,Urine Negative (Neg - Trace); RBC,Urine 1 /hpf (0-3); WBC,Urine 1 /hpf (0-5)
[2024-07-15 15:56] LABS: Lactic Acid, 3 HR 1.7 mMol/L (0.4-2.0)
[2024-07-15 16:24] LABS: Urobilinogen,Urine >8.0 mg/dL (0.0-1.0)
[2024-07-15 16:25] LABS: Bilirubin,Urine 2+ (Negative)
[2024-07-15] MEDS: PIPER/TAZO 3.375 GM 3.375 GM/50 ML BAG IV (18:10)
--- NOTE | 2024-07-15 18:11 | PD.RESEVENT ---
Documentation for date of: 07/15/24 Event Note Event Note: 84 years old male patient with significant medical history for prostate cancer s/p surgery, chemotherapy, and radiation 1979 was brought in for AMS. Patient was recently transferred to [place] on 07/10/24 for painless jaundice, lethary and intermittent diarrhea. During previous visit patient GI Dr. Ann recommended a hepatobiliary drain into the extra-hepatic duct, however the equipment to do so was unavailable. It was recommended the patient to be transferred to a facility to get a repeat ERCP and Spyglass, and EUS thus patient was transferred to [place]. In [place] patient underwent the procedures including hepatic biliary stent and afterwards was discharged to [place] [id number]. Today, the ED tried to get medical records from [place] but were unsuccessful. Abdomen/pelvis CT today indicated: Pneumobilia, Distended gallbladder with sludge versus stones and Severe narrowing of the patient's biliary stent. Labs were significant for HgB 9.7, glucose 346, T bili 10.8 (previous admission in 20's) direct bilirubin 8.1, AST 81, ALT 78, ALP 497. GI Dr. Patricia was called by floor team, recommendation was made to transfer or complete HIDA scan for patency of biliary stent prior to admission. This patient care was discussed with my attending Dr. Ria Hartley MD PGY-2 Disclaimer: Minor errors in center sales and service associate may be present since this note was dictated by speech recognition software.
--- NOTE | 2024-07-15 21:25 | PD.RESHP ---
Documentation for date of: 07/15/24 [facility] History of Present Illness Chief complaint: Altered mentation and Yellow discoloration History of present illness: This patient is a 84-year-old male with past medical history of prostate cancer s/p surgery, chemo and radiation in 1978, history of diabetes, recently placed hepatic biliary stents at [facility] on 07/10 presented with altered mental status and yellowish discoloration. Patient is currently AO x 1 oriented to name only not to time and place. Patient was recently transferred to [facility] on 07/10/2024 for painless jaundice, lethargy and intermittent diarrhea for biliary stent placement. On previous admission, patient was seen by licensed embalmer supervisor, Dr. Ann who recommended hepatobiliary drain into extrahepatic duct and due to nonavailability of equipment in our hospital patient was transferred to our facility to receive ERCP and EUS and placement of hepatic biliary stent. In [facility], patient underwent hepatic biliary stent and was discharged. Patient came back to the ER today on 07/15/2024 with complaint of noticing yellowish discoloration per patient and was also found altered. He endorsed decreased appetite from last couple of days. Patient was not found to have nausea or vomiting during assessment at the bedside. Patient denied any abdominal discomfort, nausea vomiting, chest pain, shortness of breath, fever chills. He does appear frail and cachectic. He also appeared dehydrated. Limited history could be taken due to altered mentation. ED course: In the ED, to be patient was found to have a blood pressure of 164/84, respiratory rate 20, bradycardic heart rate 51 bpm.he was afebrile and saturating well on room air. Labs were significant for hemoglobin 9.7, hematocrit 27.6, platelets 258. Coagulation panel showed INR 1.1. Chemistry panel was unremarkable. Bicarb was normal. Kidney functions are stable. Blood glucose 345. Lactic acid down trended from 3.1->1.7. Total bilirubin was elevated at 10.8. Previously seen elevated at 21.4 on 07/08/2024. Direct bilirubin 8.1. AST 81 and ALT 78 Currently downtrending. ALP 497. Albumin 3.1. Lipase was elevated at 246. Procalcitonin negative. Urinalysis was dark yellow with pH 7.5 with glucose 4+, bilirubin 2+ negative leukocyte estrase. U tox was not taken. Hep panel ordered. Imaging: CT abdomen showed pneumobilia, distended gallbladder with sludge versus stones and severe narrowing of patient's biliary stent. EKG ordered. Blood cultures were ordered. PMH: Prostate cancer PSH: Robot assisted radical prostatectomy, hepatic biliary stents placement Allergies: NKDA SH: Independent ADLs, lives with a friend SH: Denies smoking, remote history of drinking alcohol, denies illicit drug use. 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 FH: Nonsignificant Home medications: No home medications per patient. Per chart review, Zofran, Protonix and tramadol seen filled outpatient on 07/13 Patient is admitted for further workup and management of acute encephalopathy likely due to hepatic biliary stent stenosis causing possible cholangitis requiring ERCP and hyperbilirubinemia. Review of Systems Review of Systems Systems Reviewed: All systems reviewed, normal except as documented Past Medical History Past Medical History Comments PMH COMMENT: PMH: Positive for prostate cancer PSHx: Positive for robot-assisted radical prostatectomy Allergies: No known allergies Social history: Independent ADLs, lives with friend -Smoking: Denies -Alcohol Use: Positive for significant alcohol use in past -Illicit Drug Use: Positive for cocaine use in past, per chart review patient had U tox positive for meth, denies any meth use Family History: No pertinent family history Exam Vital Signs Temp Pulse Resp BP Pulse Ox O2 Del Method 98.2 F 51 L 20 164/84 H 100 Room Air 07/15/24 18:00 07/15/24 20:32 07/15/24 20:32 07/15/24 20:32 07/15/24 20:32 07/15/24 20:32 Narrative Exam General: Patient is awake, conversational, cachectic and frail-appearing currently AO x 1 only to name. HEENT: Normocephalic, atraumatic, dry mucous membranes moist. Icterus present Heart: Regular rate and rhythm S1/S2, no murmurs. Lungs: Clear to auscultation with no wheezing or crackles. Abdomen: Soft, scaphoid, nondistended, nontender, positive bowel sounds. ?No guarding or rebound tenderness. Neurologic: Alert and oriented x3, no gross neurological deficit, and patient able to move all 4 extremities. Extremities: No lower extremity edema noticed. Skin: No rash or ecchymoses. Significant jaundice noted. Results: Labs 02/14/25 11:54 07/15/24 11:54 Labs: Short CBC 07/15/24 Range/Units 11:54 WBC 6.2 (3.8-10.6) Thou/mm3 Hgb 9.7 L (13.5-16.0) g/dL Hct 27.6 L (41.0-53.0) % Plt Count 258 D (140-440) Thou/mm3 BMP 07/15/24 11:54 Sodium 138 Potassium 4.1 Chloride 101 Carbon Dioxide 29.9 BUN 18 Creatinine 0.5 L Glucose 345 H Calcium 8.8 Liver Function 07/15/24 Range/Units 11:54 Total Bilirubin 10.8 H (0.3-1.2) mg/dL Direct Bilirubin 8.1 H (0.0-0.3) mg/dL AST 81 H (0-34) U/L ALT 78 H (10-49) U/L Alkaline Phosphatase 497 H (46-116) U/L Albumin 3.1 L (3.4-4.8) gm/dL Urine 07/15/24 Range/Units 14:57 Urine Color Drk-Yellow A (Lt Yel-Yel) Urine Clarity Clear (Clear/Hazy) Urine pH 7.5 H (5.0-7.0) Ur Specific [place] 1.030 (1.001-1.035) Urine Protein Negative (Neg - Trace) Urine Glucose (UA) 4+ A (Negative) Quality Measures Quality Measures VTE prophylaxis (heparin SC) Advance care planning discussed with:: other Medications Home Medications and Allergies Home Medications ?Medication ?Instructions ?Recorded ?Confirmed ?Type No Known Home Medications 07/05/24 07/05/24 History Allergies Allergy/AdvReac Type Severity Reaction Status Date / Time No Known Allergies Allergy Verified 07/04/24 14:51 Visit Medications Acetaminophen (Acetaminophen 325 Mg Tablet) 650 mg PO Q6H PRN PRN Reason: Fever >101.5 Stop: 08/14/24 20:53 Acetaminophen (Acetaminophen 325 Mg Tablet) 650 mg PO Q6H PRN PRN Reason: PAIN SCALE 1-3 (mild Stop: 08/14/24 20:53 Dextrose (Dextrose 50%-Water Inj 50 Ml Syringe) 25 ml IV Q15MIN PRN PRN Reason: BG 50-70 responsive npo pt Stop: 08/14/24 20:55 Dextrose (Dextrose 50%-Water Inj 50 Ml Syringe) 50 ml IV Q15MIN PRN PRN Reason: BG <50 OR BG <70 & pt unresponsive Stop: 08/14/24 20:55 Glucagon (Glucagon Inj 1 Mg Vial) 1 mg IM Q15MIN PRN PRN Reason: BG <70, and no IV access Heparin Sodium (Porcine) (Heparin Sod Inj 5000 Unit/Ml Vial) 5,000 unit SC BID BARBIE Stop: 07/29/24 20:59 Lactated Ringer's (Lactated Ringers) 1,000 mls @ 75 mls/hr IV .[id number] BARBIE Stop: 07/16/24 10:19 Piperacillin/Tazobactam/Dextrose (Zosyn) 3.375 gm in 50 mls @ 100 mls/hr IV Q6HR BARBIE Stop: 07/23/24 05:59 Piperacillin/Tazobactam/Dextrose (Zosyn) 3.375 gm in 50 mls @ 100 mls/hr IV X1 ONE Stop: 07/16/24 00:29 Insulin Human Lispro (Insulin Lispro (Admelog) 1 Unit/0.01 Ml Unit) 0 unit SC AC BARBIE; Protocol Stop: 08/15/24 07:29 Ondansetron HCl (Ondansetron Inj 2 Mg/Ml Inj 2 Ml) 4 mg IV Q6H PRN; Protocol PRN Reason: NAUSEA OR VOMITING Stop: 08/14/24 20:53 Pantoprazole Sodium (Pantoprazole Inj 40 Mg Vial) 40 mg IVP QDAY [facility] Stop: 08/15/24 08:59 Sennosides (Senna Tablet) 1 tab PO QDAY PRN; Protocol PRN Reason: constipation Stop: 08/14/24 20:53 Discontinued Medications Sodium Chloride (Ns) 1,000 mls @ 999 mls/hr IV .Q1H1M ONE Stop: 07/15/24 12:29 Last Infusion: 07/15/24 13:31 Dose: Infused Piperacillin/Tazobactam/Dextrose (Zosyn) 3.375 gm in 50 mls @ 100 mls/hr IV X1 ONE Stop: 07/15/24 16:59 Last Infusion: 07/15/24 19:13 Dose: Infused Sodium Chloride (Ns) 1,000 mls @ 999 mls/hr IV .Q1H1M ONE Stop: 07/15/24 17:31 Last Infusion: 07/15/24 19:13 Dose: Infused Assessment & Plan Plan Summary: This patient is a 84-year-old male with past medical history of prostate cancer status post surgery and chemoradiation, recent placement of hepatic biliary stent for intrahepatic dilation presented to the ED on 07/15/2024 with complaints of yellowish discoloration and altered mental status. Patient is currently admitted for acute encephalopathy due to biliary stent stenosis and hyperbilirubinemia. #Acute encephalopathy: #Likely secondary to hepatic biliary stent stenosis post hepatic biliary stent placement and pneumobilia #Possible cholangitis #Acute cholestasis #Hyperbilirubinemia with transaminitis DDx: Cholangiocarcinoma, pancreatic cancer Patient presented with altered mental status and noticed yellowish discoloration of his skin. Reported to have decreased appetite from last couple of days. Limited history taken. In the ED, patient was mildly hypertensive, afebrile and saturating well on room air. On previous admission, patient was transferred to [facility] for hepatic biliary stent placement for extrahepatic biliary tract dilation seen on previous CT imaging Labs were significant for hemoglobin 9.7. Coagulation panel showed INR 1.1. LFTs showed elevated T. bili 10.8, direct bilirubin 8.1, AST 81 and ALT 78. ALP 497. Albumin 3.1. Elevated lipase 246. Procalcitonin negative. Initial lactate was elevated. Urinalysis was dark with pH 7.5 glucose 4+ bilirubin 2+ CT abdomen showed pneumobilia, distended gallbladder with sludge versus stones and severe narrowing of patient's biliary stent. Plan: -Started on IV fluids 75 cc -Started IV Zosyn 3.375 every 6 hourly [07/15? -Ordered hep panel, EKG and blood cultures -GI, Dr. Ann consulted for possible ERCP planned on Thursday -Daily labs and LFTs -Follow-up on U tox and acetaminophen levels -Follow-up on head CT without contrast #Lactic acidosis likely type B, downtrended Initial lactic acid was 3.1--> 1.7 Plan: -Continue IV fluid resuscitation -Treating underlying cause #Type 2 diabetes -Per chart review A1c 9.5 - ISS with Accu-Cheks -Hypoglycemia protocol in place #History of prostate cancer status post prostatectomy -Outpatient follow-up Health Maintenance Disposition: Patient is admitted for management of acute encephalopathy due to hepatic biliary stent stenosis causing possible cholangitis along with hyperbilirubinemia. Diet and fluids: carb consistent and IV fluids DVT prophylaxis: heparin GI prophylaxis: protonix CODE STATUS: FULL code Patient was seen and discussed with attending physician, Dr. Carol Medina MD, PGY 2 Attending Provider Attestation/Addendum 85-year-old male patient with prostate cancer patient biliary stent placement for painless jaundice was admitted for altered mental status associated with lactic acidosis. Patient probably has acute cholangitis secondary to biliary obstruction. The patient has severe protein calorie malnutrition. He is failure and emaciated He will undergo ERCP. Antibiotic started. Condition is guarded. Closely monitor for deteriorating condition.
[2024-07-15] MEDS: RINGERS LACTATED 1000 ML 1,000 ML 75 ML IV (21:38)
[2024-07-15] MEDS: HEPARIN SOD INJ 5000 UNIT/ML VIAL SC (21:38)
--- NOTE | 2024-07-15 21:40 | XR_ITS ---
Examination: CT brain head without contrast. 2-D sagittal coronal reconstructions Date and time of exam:July 16, 2024 1434 hrs. Indications: Onset altered mental status today CTDI: vol (mGy):41.10 DLP: (mGycm):846 Technique: Multiple CT axial sections of the brain have been obtained, 5 mm slice thickness. Contrast has not been administered. 2-D sagittal, coronal reconstructions have been obtained Low dose protocols were performed. One or more of the following dose reduction techniques were used; automated exposure control, adjustment of the mA and/or KV according to patient size, use of iterative reconstruction technique. Findings: No significant ventricular enlargement. Intra-axial or extra-axial hemorrhage density is not seen. No mass effect or midline shift Basal cisterns are not remarkable. Fourth ventricle is midline. Cranial vault intact. Impression: Negative for acute hemorrhage, mass effect or midline shift Advise clinical correlation follow-up accordingly
[2024-07-15 23:16] LABS: Acetaminophen 4.1 mcg/mL (10.0-20.0)
[2024-07-16 00:19] LABS: Hepatitis A Antibody IgM Non Reactive (Non React); Hepatitis B Core Antibody IgM Non Reactive (Non React); Hepatitis B Surface Antigen Non Reactive (Non React); Hepatitis C Antibody Non Reactive (Non React)
[2024-07-16] MEDS: PIPER/TAZO 3.375 GM 3.375 GM/50 ML BAG IV ×4 (01:02→21:08)
[2024-07-16 01:30] VITALS: BP 160/81; PULSE 60; RESP 18; TEMP 36.5; O2SAT 96
[2024-07-16 06:23] LABS: Basophils % (Auto) 1 % (0-2.5); Eosinophils % (Auto) 1 % (0-10); Hematocrit 26.6 % (41.0-53.0); Hemoglobin 9.3 g/dL (13.5-16.0); Immature Granulocytes % (Auto) 0 % (0-0); Immature Granulocytes Auto 0.02 Thou/mm3 (0.00-0.00); Lymphocytes # (Auto) 0.8 Thou/mm3 (1.0-4.8); Lymphocytes % (Auto) 17 % (10-50); Mean Corpuscular Hemoglobin 33.8 pg (25.0-35.0); Mean Corpuscular Volume 97 fL (80-100); Monocytes # (Auto) 0.3 Thou/mm3 (0.0-0.8); Monocytes % (Auto) 7 % (0-12); Neutrophils # (Auto) 3.4 Thou/mm3 (1.8-7.7); Neutrophils % (Auto) 74 % (37-80); Nucleated Red Blood Cell % 0 /100 WBC (0); Platelet Count 213 Thou/mm3 (140-440); RDW Standard Deviation 63.6 fL (35.1-43.9); Red Blood Count 2.75 Miln/mm3 (4.50-5.90); White Blood Count 4.6 Thou/mm3 (3.8-10.6)
[2024-07-16 06:31] LABS: INR 1.1 (0.9-1.3); Partial Thromboplastin Time 31.5 Seconds (22.0-36.0); Prothrombin Time 11.8 Seconds (9.0-12.2)
[2024-07-16 06:53] LABS: Alanine Aminotransferase 64 U/L (10-49); Alkaline Phosphatase 442 U/L (46-116); Anion Gap 7 (7-16); Aspartate Amino Transferase 55 U/L (0-34); BUN/Creatinine Ratio 30 Ratio (12-20); Bilirubin,Total 10.5 mg/dL (0.3-1.2); Blood Urea Nitrogen 12 mg/dL (9-23); Calcium 8.7 mg/dL (8.3-10.6); Calcium (Corrected) 9.5 mg/dL (8.5-10.1); Carbon Dioxide 29.4 mMol/L (20.0-31.0); Chloride 103 mMol/L (98-107); Creatinine (Component) 0.4 mg/dL (0.6-1.3); Estimated Creatinine Clearance 106.2 mL/min (>60); Glucose 203 mg/dL (74-106); Magnesium 1.5 mg/dL (1.6-2.6); Osmolality,Calculated 283 (275-295); Phosphorous 1.6 mg/dL (2.4-5.1); Potassium 3.7 mMol/L (3.4-5.1); Sodium 139 mMol/L (136-145); Thyroid Stimulating Hormone 6.87 uIU/mL (0.55-4.78); eGFR > 60 See Note
[2024-07-16 08:00] VITALS: BP 132/73; PULSE 70; RESP 18; TEMP 36.2; O2SAT 99
[2024-07-16] MEDS: INSULIN LISPRO (AdmeLOG) 1 UNIT/0.01 ML UNIT SC ×2 (08:35→11:57)
[2024-07-16] MEDS: Magnesium Sulfate 2 GM Ivpb 2 GM/50 ML BAG IV (08:35)
[2024-07-16] MEDS: PANTOPRAZOLE INJ 40 MG VIAL IVP (08:35)
[2024-07-16] MEDS: NAPH,KPH MBDB 1 PACKET (1.5 GM) PO (08:35)
[2024-07-16] MEDS: HEPARIN SOD INJ 5000 UNIT/ML VIAL SC ×2 (08:35→20:29)
[2024-07-16 12:00] VITALS: BP 153/85; PULSE 60; RESP 13; TEMP 36.2; O2SAT 99
[2024-07-16 16:00] VITALS: BP 125/76; PULSE 66; RESP 12; TEMP 36.3; O2SAT 99
--- NOTE | 2024-07-16 16:25 | ESPR_ITS ---
Documentation for date of: 07/16/24 Subjective Subjective Interval history: Patient overnight admitted for yellowing of skin and altered mental status. No significant overnight events. Labs indicated downtrending of T. bili, direct bili, AST, ALT. On exam patient alert and oriented x 3. Patient denied abdominal pain, fever, chills or other associate symptoms. Consulted nutrition as patient has cachectic looking and underweight with a BMI of 17. Exam Vital Signs Temp Pulse Resp BP Pulse Ox O2 Del Method 97.2 F 60 13 153/85 H 99 Room Air 07/16/24 12:00 07/16/24 12:00 07/16/24 12:00 07/16/24 12:00 07/16/24 12:00 07/16/24 12:00 Narrative Exam General: Patient is awake, conversational, cachectic and frail-appearing currently AO x 3 HEENT: Normocephalic, atraumatic, dry mucous membranes moist. Icterus present Heart: Regular rate and rhythm S1/S2, no murmurs. Lungs: Clear to auscultation with no wheezing or crackles. Abdomen: Soft, scaphoid, nondistended, nontender, positive bowel sounds. ?No guarding or rebound tenderness. Neurologic: Alert and oriented x3, no gross neurological deficit, and patient able to move all 4 extremities. Extremities: No lower extremity edema noticed. Skin: No rash or ecchymoses. Significant jaundice noted. Objective Labs 07/19/24 08:17 07/18/24 05:17 Labs: Laboratory Results - last 24 hr 07/15/24 07/15/24 07/15/24 14:57 15:50 22:34 WBC RBC Hgb Hct MCV MCH MCHC RDW Std Deviation Plt Count Neut % (Auto) Lymph % (Auto) Hand % (Auto) Eos % (Auto) Baso % (Auto) Neut # (Auto) Lymph # (Auto) Hand # (Auto) Eos # (Auto) Baso # (Auto) Immature Gran # (Auto) Absolute Nucleated RBC Immature Gran % Nucleated RBC % PT INR APTT Sodium Potassium Chloride Carbon Dioxide Anion Gap BUN Creatinine Estim Creat Clear Calc eGFR BUN/Creatinine Ratio Glucose Calculated Osmolality Lactic Acid 1.7 Calcium Corrected Calcium Phosphorus Magnesium Total Bilirubin AST ALT Alkaline Phosphatase Total Protein Albumin Globulin Albumin/Globulin Ratio TSH Free T4 Ur Collection Type Clean Catch Urine Color Drk-Yellow A Urine Clarity Clear Urine pH 7.5 H Ur Specific [place] 1.030 Urine Protein Negative Urine Glucose (UA) 4+ A Urine Ketones Negative Urine Blood Negative Urine Nitrite Negative Urine Bilirubin 2+ A Urine Urobilinogen (Auto) >8.0 Ur Leukocyte Esterase Negative Urine RBC 1 Urine WBC 1 Ur Squamous Epith Cells 0 Urine Bacteria None Ur Culture Indicated? Not Indicated Acetaminophen 4.1 L Hepatitis A IgM Ab Non Reactive Hep Bs Antigen Non Reactive Hep B Core IgM Ab Non Reactive Hepatitis C Antibody Non Reactive 07/16/24 05:43 WBC 4.6 RBC 2.75 L Hgb 9.3 L Hct 26.6 L MCV 97 MCH 33.8 MCHC 35.0 RDW Std Deviation 63.6 H Plt Count 213 D Neut % (Auto) 74 Lymph % (Auto) 17 Hand % (Auto) 7 Eos % (Auto) 1 Baso % (Auto) 1 Neut # (Auto) 3.4 Lymph # (Auto) 0.8 L Hand # (Auto) 0.3 Eos # (Auto) 0.0 Baso # (Auto) 0.0 Immature Gran # (Auto) 0.02 H Absolute Nucleated RBC 0.00 Immature Gran % 0 Nucleated RBC % 0 PT 11.8 INR 1.1 APTT 31.5 Sodium 139 Potassium 3.7 Chloride 103 Carbon Dioxide 29.4 Anion Gap 7 BUN 12 Creatinine 0.4 L Estim Creat Clear Calc 106.2 eGFR > 60 BUN/Creatinine Ratio 30 H Glucose 203 H D Calculated Osmolality 283 Lactic Acid Calcium 8.7 Corrected Calcium 9.5 Phosphorus 1.6 L Magnesium 1.5 L Total Bilirubin 10.5 H AST 55 H ALT 64 H Alkaline Phosphatase 442 H D Total Protein 6.0 Albumin 3.0 L Globulin 3.0 Albumin/Globulin Ratio 1.0 L TSH 6.87 H D Free T4 0.80 L Ur Collection Type Urine Color Urine Clarity Urine pH Ur Specific [place] Urine Protein Urine Glucose (UA) Urine Ketones Urine Blood Urine Nitrite Urine Bilirubin Urine Urobilinogen (Auto) Ur Leukocyte Esterase Urine RBC Urine WBC Ur Squamous Epith Cells Urine Bacteria Ur Culture Indicated? Acetaminophen Hepatitis A IgM Ab Hep Bs Antigen Hep B Core IgM Ab Hepatitis C Antibody Quality Measures Quality Measures VTE prophylaxis (heparin SC) Advance care planning discussed with:: patient Assessment & Plan Assessment Current Active Medications: Generic Name Dose Route Start Last Admin Trade Name Freq PRN Reason Stop Dose Admin Acetaminophen 650 mg 02/14/25 20:54 Acetaminophen 325 Mg Tablet PO 08/14/24 20:53 Q6H PRN Fever >101.5 Acetaminophen 650 mg 07/15/24 20:54 Acetaminophen 325 Mg Tablet PO 08/14/24 20:53 Q6H PRN PAIN SCALE 1-3 (mild Dextrose 25 ml 07/15/24 20:56 Dextrose 50%-Water Inj 50 Ml Syringe IV 08/14/24 20:55 Q15MIN PRN BG 50-70 responsive npo pt Dextrose 50 ml 07/15/24 20:56 Dextrose 50%-Water Inj 50 Ml Syringe IV 08/14/24 20:55 Q15MIN PRN BG <50 OR BG <70 & pt unresponsive Glucagon 1 mg 07/15/24 20:56 Glucagon Inj 1 Mg Vial IM Q15MIN PRN BG <70, and no IV access Heparin Sodium (Porcine) 5,000 unit 07/15/24 21:00 07/16/24 08:35 Heparin Sod Inj 5000 Unit/Ml Vial SC 07/29/24 20:59 5,000 unit BID BARBIE Administration Piperacillin/Tazobactam/Dextrose 3.375 gm in 50 mls @ 12.5 mls/hr 07/16/24 06:00 07/16/24 14:54 Zosyn IV 07/23/24 05:59 12.5 mls/hr Q8HR BARBIE Administration Protocol Insulin Human Lispro 0 unit 07/16/24 07:30 07/16/24 11:57 Insulin Lispro (Admelog) 1 Unit/0.01 Ml Unit SC 08/15/24 07:29 1 unit AC BARBIE Administration Protocol Ondansetron HCl 4 mg 07/15/24 20:54 Ondansetron Inj 2 Mg/Ml Inj 2 Ml IV 08/14/24 20:53 Q6H PRN NAUSEA OR VOMITING Protocol Pantoprazole Sodium 40 mg 07/16/24 09:00 07/16/24 08:35 Pantoprazole Inj 40 Mg Vial IVP 08/15/24 08:59 40 mg QDAY BARBIE Administration Sennosides 1 tab 07/15/24 20:54 Senna Tablet PO 08/14/24 20:53 QDAY PRN constipation Protocol Plan 84-year-old male with past medical history of prostate cancer status post surgery and chemoradiation, recent placement of hepatic biliary stent for intrahepatic dilation presented to the ED on 07/15/2024 with complaints of yellowish discoloration and altered mental status. Patient is currently admitted for acute encephalopathy due to biliary stent stenosis and hyperbilirubinemia. #Acute encephalopathy #Likely secondary to hepatic biliary stent stenosis post hepatic biliary stent placement and pneumobilia #Possible cholangitis #Acute cholestasis #Hyperbilirubinemia with transaminitis DDx: Cholangiocarcinoma, pancreatic cancer Patient presented with altered mental status and noticed yellowish discoloration of his skin. Reported to have decreased appetite from last couple of days. Limited history taken. In the ED, patient was mildly hypertensive, afebrile and saturating well on room air. On previous admission, patient was transferred to [facility] for hepatic biliary stent placement for extrahepatic biliary tract dilation seen on previous CT imaging Labs were significant for hemoglobin 9.7. Coagulation panel showed INR 1.1. LFTs showed elevated T. bili 10.8, direct bilirubin 8.1, AST 81 and ALT 78. ALP 497. Albumin 3.1. Elevated lipase 246. Procalcitonin negative. Initial lactate was elevated. Urinalysis was dark with pH 7.5 glucose 4+ bilirubin 2+ CT abdomen showed pneumobilia, distended gallbladder with sludge versus stones and severe narrowing of patient's biliary stent. U-Tox and acetaminophen levels negative Hep panel is nonreactive Head CT without contrast unremarkable Plan: -Continue IV fluids 75 cc -Continue IV Zosyn 3.375 every 6 hourly [07/15? -GI, Dr. nAn consulted for possible ERCP planned on Thursday, follow recommendations accordingly appreciated -Daily labs and LFTs #Lactic acidosis likely type B, resolved Initial lactic acid was 3.1--> 1.7 Plan: -Continue IV fluid resuscitation -Treating underlying cause #Type 2 diabetes -Per chart review A1c 9.5 - ISS with Accu-Cheks -Hypoglycemia protocol in place #History of prostate cancer status post prostatectomy -Outpatient follow-up Health Maintenance Disposition: Patient is admitted for management of acute encephalopathy due to hepatic biliary stent stenosis causing possible cholangitis along with hyperbilirubinemia. GI consulted Diet and fluids: carb consistent and IV fluids DVT prophylaxis: heparin GI prophylaxis: protonix CODE STATUS: FULL code This patient care was discussed with my attending Dr. Ria Hartley MD PGY-2 Disclaimer: Minor errors in service inspector may be present since this note was dictated by speech recognition software. Attending Provider Attestation/Addendum I attest that I was physically present for the evaluation, physical examination, lab and imaging review of the patient with the residents. I discussed the case with the residents and agree with the findings and plans of care as documented above. Patient is an 84 years old male with past medical history of prostate cancer status postsurgery and chemoradiation, recent placement of antibiotic biliary stent for intrahepatic dilatation who presented to the ED with complaint of yellowish discoloration of skin and altered mental status. Patient was admitted overnight for management of acute encephalopathy secondary to biliary stent stenosis and hyperbilirubinemia. At bedside, patient noted to have improved mental status, currently alert and oriented x 3. He was only able to answer some simple questions and follow commands. Appears cachectic and icteric. Denied any pain or fever. Continues to be on IV Zosyn for concern of possible cholangitis. Awaiting GI recommendation and HIDA scan results. Lashay Rollins MD
[2024-07-16 20:00] VITALS: BP 155/83; PULSE 57; RESP 16; TEMP 36.2; O2SAT 100
[2024-07-17] VITALS (9 sets, daily range): BP systolic 100–153; BP diastolic 73–89; PULSE 58–128; RESP 10–100; TEMP 36.1–36.9; O2SAT 98–100
[2024-07-17] MEDS: PIPER/TAZO 3.375 GM 3.375 GM/50 ML BAG IV ×3 (05:04→21:35)
[2024-07-17 05:49] LABS: Basophils % (Auto) 1 % (0-2.5); Eosinophils % (Auto) 1 % (0-10); Hematocrit 29.1 % (41.0-53.0); Hemoglobin 10.2 g/dL (13.5-16.0); Immature Granulocytes % (Auto) 1 % (0-0); Immature Granulocytes Auto 0.02 Thou/mm3 (0.00-0.00); Lymphocytes % (Auto) 26 % (10-50); Mean Corpuscular HGB Conc 35.1 g/dl (31.0-37.0); Mean Corpuscular Hemoglobin 34.1 pg (25.0-35.0); Mean Corpuscular Volume 97 fL (80-100); Monocytes # (Auto) 0.3 Thou/mm3 (0.0-0.8); Monocytes % (Auto) 8 % (0-12); Neutrophils # (Auto) 2.5 Thou/mm3 (1.8-7.7); Neutrophils % (Auto) 65 % (37-80); Nucleated Red Blood Cell % 0 /100 WBC (0); Platelet Count 218 Thou/mm3 (140-440); RDW Standard Deviation 60.1 fL (35.1-43.9); Red Blood Count 2.99 Miln/mm3 (4.50-5.90); White Blood Count 3.8 Thou/mm3 (3.8-10.6)
[2024-07-17 06:21] LABS: Alanine Aminotransferase 60 U/L (10-49); Albumin, Serum 2.9 gm/dL (3.4-4.8); Albumin/Globulin Ratio 0.9 (1.2-2.2); Alkaline Phosphatase 429 U/L (46-116); Anion Gap 8 (7-16); Aspartate Amino Transferase 53 U/L (0-34); BUN/Creatinine Ratio 30 Ratio (12-20); Bilirubin,Total 9.4 mg/dL (0.3-1.2); Blood Urea Nitrogen 12 mg/dL (9-23); Calcium 8.8 mg/dL (8.3-10.6); Calcium (Corrected) 9.7 mg/dL (8.5-10.1); Carbon Dioxide 28.3 mMol/L (20.0-31.0); Chloride 101 mMol/L (98-107); Creatinine (Component) 0.4 mg/dL (0.6-1.3); Estimated Creatinine Clearance 106.2 mL/min (>60); Globulin 3.3 gm/dL (2.3-3.5); Glucose 169 mg/dL (74-106); Magnesium 1.7 mg/dL (1.6-2.6); Osmolality,Calculated 277 (275-295); Phosphorous 1.9 mg/dL (2.4-5.1); Potassium 3.7 mMol/L (3.4-5.1); Sodium 137 mMol/L (136-145); Total Protein 6.2 gm/dL (5.7-8.2); eGFR > 60 See Note
[2024-07-17] MEDS: HEPARIN SOD INJ 5000 UNIT/ML VIAL SC ×2 (09:16→20:25)
[2024-07-17] MEDS: PANTOPRAZOLE INJ 40 MG VIAL IVP (09:17)
[2024-07-17] MEDS: INSULIN LISPRO (AdmeLOG) 1 UNIT/0.01 ML UNIT SC ×2 (09:17→12:24)
[2024-07-17] MEDS: SOD PHOS ADDITIVE 22.5 MMOL in SODIUM CHLORIDE 0.9% 500 ML 500 ML 82.778 MMOL IV (09:18)
--- NOTE | 2024-07-17 10:38 | ESPR_ITS ---
<Statement entered by Carlos Hartley MD - 07/18/24 07:02> I discussed with and supervised the software development intern physician involved in the care of this patient. Patient assessment and plan was discussed with entire medicine team, including my attending. I agree with the assessment and plan as documented by software development intern doctor. Patient care was discussed with my attending physician Dr. Ria Hartley, PGY-2 Documentation for date of: 07/17/24 Subjective Subjective Interval history: Patient is Kenyan-speaking and interaction facilitated by registered healthcare vamp marker Patient was seen and examined at bedside this AM. No acute exents overnight. Patient tolerating diet, adequate urine output and mentation is at baseline. Patient denies any abdominal pain, vomiting, diarrhea. K3.7 and Phos 1.9. Repleted with sodium phosphate 22.5 mmol IV x 1 Pending ERCP by grain oilseed or pasture grower, Dr. Ann on 07/18/2024 Exam Vital Signs Temp Pulse Resp BP Pulse Ox O2 Del Method 97.6 F 68 14 153/89 H 100 Room Air 07/17/24 08:00 07/17/24 08:00 07/17/24 08:00 07/17/24 08:00 07/17/24 08:00 07/17/24 08:00 Narrative Exam Constitutional Alert, oriented x 3 and comfortable. Elderly male, bitemporal wasting, cachectic, generalized jaundice, scleral icterus. HEENT Vision grossly intact. Patent nares. Trachea midline Respiratory Chest normal on inspection and clear auscultation bilaterally Cardiovascular S1 and S2 audible, RRR. No murmurs carotid bruit. No gross JVD. Abdominal Soft and non tender to palpation in all quadrants. BS + Genitourinary No bladder tenderness, no flank pain. Normal to palpation Musculoskeletal Extremities tone within normal limits. No LE edema. Neurological CN II - XII grossly intact. Extremity motor and sensation grossly intact. Skin Warm, dry and intact. Generalized jaundice Psychiatric Patient has good affect, is cooperative Objective Labs 07/19/24 08:17 07/18/24 05:17 Labs: Laboratory Results - last 24 hr 07/17/24 04:51 WBC 3.8 RBC 2.99 L Hgb 10.2 L Hct 29.1 L MCV 97 MCH 34.1 MCHC 35.1 RDW Std Deviation 60.1 H Plt Count 218 Neut % (Auto) 65 Lymph % (Auto) 26 Sharkey % (Auto) 8 Eos % (Auto) 1 Baso % (Auto) 1 Neut # (Auto) 2.5 Lymph # (Auto) 1.0 Sharkey # (Auto) 0.3 Eos # (Auto) 0.0 Baso # (Auto) 0.0 Immature Gran # (Auto) 0.02 H Absolute Nucleated RBC 0.00 Immature Gran % 1 H Nucleated RBC % 0 Sodium 137 Potassium 3.7 Chloride 101 Carbon Dioxide 28.3 Anion Gap 8 BUN 12 Creatinine 0.4 L Estim Creat Clear Calc 106.2 eGFR > 60 BUN/Creatinine Ratio 30 H Glucose 169 H Calculated Osmolality 277 Calcium 8.8 Corrected Calcium 9.7 Phosphorus 1.9 L Magnesium 1.7 Total Bilirubin 9.4 H D AST 53 H ALT 60 H Alkaline Phosphatase 429 H Total Protein 6.2 Albumin 2.9 L Globulin 3.3 Albumin/Globulin Ratio 0.9 L Quality Measures Quality Measures VTE prophylaxis (heparin SC) Advance care planning discussed with:: patient Assessment & Plan Assessment Current Active Medications: Generic Name Dose Route Start Last Admin Trade Name Swetha PRN Reason Stop Dose Admin Acetaminophen 650 mg 07/15/24 20:54 Acetaminophen 325 Mg Tablet PO 08/14/24 20:53 Q6H PRN Fever >101.5 Acetaminophen 650 mg 07/15/24 20:54 Acetaminophen 325 Mg Tablet PO 08/14/24 20:53 Q6H PRN PAIN SCALE 1-3 (mild Dextrose 25 ml 07/15/24 20:56 Dextrose 50%-Water Inj 50 Ml Syringe IV 08/14/24 20:55 Q15MIN PRN BG 50-70 responsive npo pt Dextrose 50 ml 07/15/24 20:56 Dextrose 50%-Water Inj 50 Ml Syringe IV 08/14/24 20:55 Q15MIN PRN BG <50 OR BG <70 & pt unresponsive Glucagon 1 mg 07/15/24 20:56 Glucagon Inj 1 Mg Vial IM Q15MIN PRN BG <70, and no IV access Heparin Sodium (Porcine) 5,000 unit 07/15/24 21:00 07/17/24 09:16 Heparin Sod Inj 5000 Unit/Ml Vial SC 07/29/24 20:59 5,000 unit BID BARBIE Administration Piperacillin/Tazobactam/Dextrose 3.375 gm in 50 mls @ 12.5 mls/hr 07/16/24 06:00 07/17/24 05:04 Zosyn IV 07/23/24 05:59 12.5 mls/hr Q8HR BARBIE Administration Protocol Sodium Phosphate 22.5 mmol/ 507.5 mls @ 82.778 mls/hr 07/17/24 08:26 07/17/24 09:18 Sodium Chloride IV 07/17/24 14:33 82.778 mls/hr X1 ONE Administration Insulin Human Lispro 0 unit 07/16/24 07:30 07/17/24 09:17 Insulin Lispro (Admelog) 1 Unit/0.01 Ml Unit SC 08/15/24 07:29 1 unit AC BARBIE Administration Protocol Ondansetron HCl 4 mg 07/15/24 20:54 Ondansetron Inj 2 Mg/Ml Inj 2 Ml IV 08/14/24 20:53 Q6H PRN NAUSEA OR VOMITING Protocol Pantoprazole Sodium 40 mg 07/16/24 09:00 07/17/24 09:17 Pantoprazole Inj 40 Mg Vial IVP 08/15/24 08:59 40 mg QDAY BARBIE Administration Sennosides 1 tab 07/15/24 20:54 Senna Tablet PO 08/14/24 20:53 QDAY PRN constipation Protocol Plan 84-year-old male with past medical history of prostate cancer status post surgery and chemoradiation, recent placement of hepatic biliary stent for intrahepatic dilation presented to the ED on 07/15/2024 with complaints of yellowish discoloration and altered mental status. Patient is currently admitted for acute encephalopathy due to biliary stent stenosis and hyperbilirubinemia. #Acute metabolic encephalopathy?resolving #Likely secondary to hepatic biliary stent stenosis post hepatic biliary stent placement and pneumobilia #Possible cholangitis?unlikely #Acute cholestasis #Hyperbilirubinemia with transaminitis DDx: Cholangiocarcinoma, pancreatic cancer Patient presented with altered mental status and noticed yellowish discoloration of his skin. Reported to have decreased appetite from last couple of days. Limited history taken. In the ED, patient was mildly hypertensive, afebrile and saturating well on room air. On previous admission, patient was transferred to [facility] for hepatic biliary stent placement for extrahepatic biliary tract dilation seen on previous CT imaging Labs were significant for hemoglobin 9.7. Coagulation panel showed INR 1.1. LFTs showed elevated T. bili 10.8, direct bilirubin 8.1, AST 81 and ALT 78. ALP 497. Albumin 3.1. Elevated lipase 246. Procalcitonin negative. Initial lactate was elevated. Urinalysis was dark with pH 7.5 glucose 4+ bilirubin 2+ CT abdomen showed pneumobilia, distended gallbladder with sludge versus stones and severe narrowing of patient's biliary stent. U-Tox and acetaminophen levels negative Hep panel is nonreactive Head CT without contrast unremarkable Plan: ? Awaiting HIDA scan - Continue IV fluids 75 cc - Continue IV Zosyn 3.375 every 6 hourly [07/15? - GI, Dr. Ann consulted for possible ERCP planned on Thursday, follow recommendations accordingly appreciated - Daily labs and LFTs #Hypophosphatemia Phosphorus 1.9 Plan: ? Repleted with sodium phosphate 22.5 mmol IV x 1 #Lactic acidosis likely type B, resolved Initial lactic acid was 3.1--> 1.7 Plan: -Continue IV fluid resuscitation -Treating underlying cause #Type 2 diabetes -Per chart review A1c 9.5 - ISS with Accu-Cheks -Hypoglycemia protocol in place #History of prostate cancer status post prostatectomy -Outpatient follow-up Health maintenance: Disposition: Pending HIDA scan. Possible ERCP tomorrow. GI recommendations Diet: Carbohydrate consistent, high-protein Lines: pIVs GI Prophylaxis: Pantoprazole IV Thrombo Prophylaxis: Heparin 5000 units sc BID Code status: FULL CODE Plan of care discussed with Attending Dr. Rollins and PGY2 Dr. Odilia Trimble MD PGY 1 Attending Provider Attestation/Addendum I attest that I was physically present for the evaluation, physical examination, lab and imaging review of the patient with the residents. I discussed the case with the residents and agree with the findings and plans of care as documented above. At bedside, patient continues to be comfortable, awake and alert able to answer questions and follow commands. Bilirubin level noted to be improving slowly. Has been able to tolerate diet and denies any abdominal pain or fever. Awaiting HIDA results continues to be on IV antibiotics. Lashay Rollins MD
--- NOTE | 2024-07-17 19:57 | EKG_ITS ---
[facility] Test Date: 2024-07-17 Pat Name: KEILA NELSON [facility] Gender[facility] Male Bronc Breaker: ECOBN1 : 1940 Requested By: Dalton Joyce Order Number: [id number] Reading MD: Dalton Joyce Measurements Intervals [place] Rate: 117 P: MO: QRS: 46 QRSD: 89 T: 0 QT: 270 QTc: 378 Interpretive Statements ATRIAL FLUTTER/TACHYCARDIA WITH RAPID VENTRICULAR RESPONSE NONSPECIFIC ST & T-WAVE ABNORMALITY ABNORMAL RHYTHM ECG Compared to ECG 07/16/2024 00:02:11 Sinus bradycardia no longer present T-wave abnormality still present /store/S0/[id number]/[id number].pdf
[2024-07-17] MEDS: POTASSIUM CHLORIDE 20 mEq TABCR PO (20:24)
[2024-07-17] MEDS: METOPROLOL TARTRATE 25 MG TABLET PO (20:24)
[2024-07-17] MEDS: Magnesium Sulfate 4 GM Ivpb 4 GM/50 ML BAG IV (20:25)
[2024-07-18] VITALS (10 sets, daily range): BP systolic 108–128; BP diastolic 65–82; PULSE 57–117; RESP 11–97; TEMP 36.8–37.2; O2SAT 98–110; BMI 19.0
[2024-07-18] MEDS: PIPER/TAZO 3.375 GM 3.375 GM/50 ML BAG IV (05:22)
[2024-07-18 05:54] LABS: Basophils % (Auto) 1 % (0-2.5); Eosinophils % (Auto) 1 % (0-10); Hematocrit 28.3 % (41.0-53.0); Immature Granulocytes % (Auto) 1 % (0-0); Immature Granulocytes Auto 0.02 Thou/mm3 (0.00-0.00); Lymphocytes # (Auto) 0.8 Thou/mm3 (1.0-4.8); Lymphocytes % (Auto) 21 % (10-50); Mean Corpuscular HGB Conc 35.3 g/dl (31.0-37.0); Mean Corpuscular Hemoglobin 34.1 pg (25.0-35.0); Mean Corpuscular Volume 97 fL (80-100); Monocytes # (Auto) 0.4 Thou/mm3 (0.0-0.8); Monocytes % (Auto) 10 % (0-12); Neutrophils # (Auto) 2.4 Thou/mm3 (1.8-7.7); Neutrophils % (Auto) 67 % (37-80); Nucleated Red Blood Cell % 0 /100 WBC (0); Platelet Count 322 Thou/mm3 (140-440); RDW Standard Deviation 59.5 fL (35.1-43.9); Red Blood Count 2.93 Miln/mm3 (4.50-5.90); White Blood Count 3.5 Thou/mm3 (3.8-10.6)
[2024-07-18 06:30] LABS: Alanine Aminotransferase 53 U/L (10-49); Albumin, Serum 2.9 gm/dL (3.4-4.8); Albumin/Globulin Ratio 0.9 (1.2-2.2); Alkaline Phosphatase 398 U/L (46-116); Anion Gap 7 (7-16); Aspartate Amino Transferase 51 U/L (0-34); BUN/Creatinine Ratio 23 Ratio (12-20); Bilirubin,Total 8.2 mg/dL (0.3-1.2); Blood Urea Nitrogen 9 mg/dL (9-23); Calcium 8.6 mg/dL (8.3-10.6); Calcium (Corrected) 9.5 mg/dL (8.5-10.1); Carbon Dioxide 26.8 mMol/L (20.0-31.0); Chloride 102 mMol/L (98-107); Creatinine (Component) 0.4 mg/dL (0.6-1.3); Estimated Creatinine Clearance 114.5 mL/min (>60); Globulin 3.1 gm/dL (2.3-3.5); Glucose 211 mg/dL (74-106); Magnesium 2.1 mg/dL (1.6-2.6); Osmolality,Calculated 276 (275-295); Phosphorous 2.2 mg/dL (2.4-5.1); Potassium 3.8 mMol/L (3.4-5.1); Sodium 136 mMol/L (136-145); eGFR > 60 See Note
[2024-07-18] MEDS: INSULIN LISPRO (AdmeLOG) 1 UNIT/0.01 ML UNIT SC ×2 (07:44→17:44)
[2024-07-18] MEDS: PANTOPRAZOLE INJ 40 MG VIAL IVP (08:09)
[2024-07-18] MEDS: HEPARIN SOD INJ 5000 UNIT/ML VIAL SC (08:09)
--- NOTE | 2024-07-18 09:51 | XR_ITS ---
Examination: KRISTI, hepatobiliary radioisotope scan Date and time of exam: July 18, 2024 1124 hrs. Indications: Abdominal pain, painless jaundice beginning 5 days ago with elevated bilirubin Technique: 5.9 mCi of 99M Hepatolite administered. Serial imaging then obtained from immediate through 60 minutes. Findings: Radioisotope activity within the liver is reasonably homogenous. Common bile duct small bowel activity noted Impression: No gallbladder visualization, cystic duct obstruction pattern
--- NOTE | 2024-07-18 13:14 | ESPR_ITS ---
<Statement entered by Nadeem Sánchez MD - 07/20/24 16:09> Agree with plan and examination finding on the note below. Patient seen and examined at bedside today. Labs and imaging reviewed. Patient care discussed with my attending Dr. Rollins and co-resident Dr. Trimble. Documentation for date of: 07/18/24 Subjective Subjective Interval history: Patient is Yoruba-speaking and interaction facilitated by registered healthcare chainstitch elastic attacher Patient was seen and examined at bedside this AM. Went into A-fib with rates 110?130s. Metoprolol tartrate 25 Mg p.o. x 1 given and heart rate improved to 70s?80s Patient NPO, adequate urine output and mentation is at baseline. Patient denied any vomiting, abdominal pain, diarrhea. From telemetry monitoring patient was in A-fib with rates 70s/80s overnight. Started on metoprolol tartrate 25 Mg p.o. twice daily and Lovenox 55 Mg SC twice daily. Phosphorus 2.2. Patient repleted with 1 packet Neutra-Phos Blood culture from 07/15 grew Klebsiella. Started on ceftriaxone 2 g IV daily. Zosyn was discontinued Pending HIDA scan. Possible ERCP by oil sales and service rep, Dr. Ann. Exam Vital Signs Temp Pulse Resp BP Pulse Ox O2 Del Method 98.9 F 64 17 114/70 99 Room Air 07/18/24 11:35 07/18/24 11:35 07/18/24 11:35 07/18/24 11:35 07/18/24 11:35 07/18/24 11:35 Narrative Exam Constitutional Alert, oriented x 3 and comfortable. Elderly male, bitemporal wasting, cachectic, generalized jaundice, scleral icterus. HEENT Vision grossly intact. Patent nares. Trachea midline Respiratory Chest normal on inspection and clear auscultation bilaterally Cardiovascular S1 and S2 audible, RRR. No murmurs carotid bruit. No gross JVD. Abdominal Soft and non tender to palpation in all quadrants. BS + Genitourinary No bladder tenderness, no flank pain. Normal to palpation Musculoskeletal Extremities tone within normal limits. No LE edema. Neurological CN II - XII grossly intact. Extremity motor and sensation grossly intact. Skin Warm, dry and intact. Generalized jaundice Psychiatric Patient has good affect, is cooperative Objective Labs 07/19/24 08:17 07/18/24 05:17 Labs: Laboratory Results - last 24 hr 07/18/24 05:17 WBC 3.5 L RBC 2.93 L Hgb 10.0 L Hct 28.3 L MCV 97 MCH 34.1 MCHC 35.3 RDW Std Deviation 59.5 H Plt Count 322 D Neut % (Auto) 67 Lymph % (Auto) 21 Brantley % (Auto) 10 Eos % (Auto) 1 Baso % (Auto) 1 Neut # (Auto) 2.4 Lymph # (Auto) 0.8 L Brantley # (Auto) 0.4 Eos # (Auto) 0.0 Baso # (Auto) 0.0 Immature Gran # (Auto) 0.02 H Absolute Nucleated RBC 0.00 Immature Gran % 1 H Nucleated RBC % 0 Sodium 136 Potassium 3.8 Chloride 102 Carbon Dioxide 26.8 Anion Gap 7 BUN 9 Creatinine 0.4 L Estim Creat Clear Calc 114.5 eGFR > 60 BUN/Creatinine Ratio 23 H Glucose 211 H Calculated Osmolality 276 Calcium 8.6 Corrected Calcium 9.5 Phosphorus 2.2 L Magnesium 2.1 Total Bilirubin 8.2 H D AST 51 H ALT 53 H Alkaline Phosphatase 398 H D Total Protein 6.0 Albumin 2.9 L Globulin 3.1 Albumin/Globulin Ratio 0.9 L Quality Measures Quality Measures VTE prophylaxis (heparin SC) Advance care planning discussed with:: patient Assessment & Plan Assessment Current Active Medications: Generic Name Dose Route Start Last Admin Trade Name Freq PRN Reason Stop Dose Admin Acetaminophen 650 mg 07/15/24 20:54 Acetaminophen 325 Mg Tablet PO 08/14/24 20:53 Q6H PRN Fever >101.5 Acetaminophen 650 mg 07/15/24 20:54 Acetaminophen 325 Mg Tablet PO 08/14/24 20:53 Q6H PRN PAIN SCALE 1-3 (mild Dextrose 25 ml 07/15/24 20:56 Dextrose 50%-Water Inj 50 Ml Syringe IV 08/14/24 20:55 Q15MIN PRN BG 50-70 responsive npo pt Dextrose 50 ml 07/15/24 20:56 Dextrose 50%-Water Inj 50 Ml Syringe IV 08/14/24 20:55 Q15MIN PRN BG <50 OR BG <70 & pt unresponsive Enoxaparin Sodium 40 mg 07/18/24 10:30 Enoxaparin Sod Inj 40 Mg/0.4 Ml Syringe SC 08/01/24 10:29 BID BARBIE Protocol Glucagon 1 mg 07/15/24 20:56 Glucagon Inj 1 Mg Vial IM Q15MIN PRN BG <70, and no IV access Ceftriaxone Sodium/Dextrose 2 gm in 50 mls @ 100 mls/hr 07/18/24 10:30 Rocephin/D5w 2gm IV 07/25/24 10:29 QDAY [facility] Insulin Human Lispro 0 unit 07/16/24 07:30 07/18/24 07:44 Insulin Lispro (Admelog) 1 Unit/0.01 Ml Unit SC 08/15/24 07:29 1 unit AC [facility] Administration Protocol Metoprolol Tartrate 25 mg 07/18/24 10:00 Metoprolol Tartrate 25 Mg Tablet PO 08/17/24 09:59 BID [facility] Ondansetron HCl 4 mg 07/15/24 20:54 Ondansetron Inj 2 Mg/Ml Inj 2 Ml IV 08/14/24 20:53 Q6H PRN NAUSEA OR VOMITING Protocol Pantoprazole Sodium 40 mg 07/16/24 09:00 07/18/24 08:09 Pantoprazole Inj 40 Mg Vial IVP 08/15/24 08:59 40 mg QDAY [facility] Administration Sennosides 1 tab 07/15/24 20:54 Senna Tablet PO 08/14/24 20:53 QDAY PRN constipation Protocol Ursodiol 300 mg 07/18/24 10:00 Ursodiol 300 Mg Capsule PO 08/17/24 09:59 TID [facility] Plan 84-year-old male with past medical history of prostate cancer status post surgery and chemoradiation, recent placement of hepatic biliary stent for intrahepatic dilation presented to the ED on 07/15/2024 with complaints of yellowish discoloration and altered mental status. Patient is currently admitted for acute encephalopathy due to biliary stent stenosis and hyperbilirubinemia. #Klebsiella pneumonia bacteremia Blood culture 07/15 grew Klebsiella pneumonia pansensitive to most antibiotics tested. Plan: ? Started on ceftriaxone 2 g IV daily on [07/18? #Atrial fibrillation?new onset Patient denies any palpitations, chest pain/pressure EKG significant for atrial fibrillation, rate 117. No acute ST changes [id number]: 3 points [male, age, DM]. Anticoagulation recommended based on risk Plan: ? Continue telemetry monitoring ? Started on metoprolol tartrate 25 Mg p.o. twice daily for rate control ? Started on Lovenox 55 Mg SC twice daily for anticoagulation #Acute metabolic encephalopathy?resolved #Likely secondary to hepatic biliary stent stenosis post hepatic biliary stent placement and pneumobilia # Cholangitis?unlikely #Acute cholestasis #Hyperbilirubinemia with transaminitis #Elevated CA 19?9 DDx: Cholangiocarcinoma, pancreatic cancer Patient presented with altered mental status and noticed yellowish discoloration of his skin. Reported to have decreased appetite from last couple of days. Limited history taken. In the ED, patient was mildly hypertensive, afebrile and saturating well on room air. On previous admission, patient was transferred to [facility] for hepatic biliary stent placement for extrahepatic biliary tract dilation seen on previous CT imaging CA 19?9 : 1133 Labs were significant for hemoglobin 9.7. Coagulation panel showed INR 1.1. LFTs showed elevated T. bili 10.8, direct bilirubin 8.1, AST 81 and ALT 78. ALP 497. Albumin 3.1. Elevated lipase 246. Procalcitonin negative. Initial lactate was elevated. Urinalysis was dark with pH 7.5 glucose 4+ bilirubin 2+ CT abdomen showed pneumobilia, distended gallbladder with sludge versus stones and severe narrowing of patient's biliary stent. U-Tox and acetaminophen levels negative Hep panel is nonreactive Head CT without contrast unremarkable Plan: ? Awaiting HIDA scan - Continue IV fluids 75 cc - Discontinued IV Zosyn 3.375 every 6 hourly [07/15?07/18] - GI, Dr. Ann consulted for possible ERCP , recommendations appreciated - Daily labs and LFTs #Hypophosphatemia Phosphorus 2.2 Plan: ? Repleted with 1 packet Neutra-Phos #Lactic acidosis likely type B, resolved Initial lactic acid was 3.1--> 1.7 #Type 2 diabetes -Per chart review A1c 9.5 - ISS with Accu-Cheks -Hypoglycemia protocol in place #History of prostate cancer status post prostatectomy -Outpatient follow-up Health maintenance: Disposition: Pending HIDA scan. Possible ERCP. GI recommendations Diet: Carbohydrate consistent, high-protein Lines: pIVs GI Prophylaxis: Pantoprazole IV Thrombo Prophylaxis: Heparin 5000 units sc BID Code status: FULL CODE Plan of care discussed with Attending Dr. Rollins and PGY3 Dr. Princess Trimble MD PGY 1 Attending Provider Attestation/Addendum I attest that I was physically present for the evaluation, physical examination, lab and imaging review of the patient with the residents. I discussed the case with the residents and agree with the findings and plans of care as documented above. Patient continues to be alert and awake, able to answer questions and follow commands. Appears to be comfortable at bedside. Has been able to tolerate diet, denies any nausea abdominal pain or diarrhea. Found to have Klebsiella pneumonia on blood cultures. Antibiotics switched from Zosyn to Rocephin based on culture results. Patient also had an episode of A-fib, [id number] score is 3, we will start him on anticoagulation and metoprolol to tartrate along with telemetry monitoring. Billirubin level continues to improve. Awaiting HIDA scan. Lashay Rollins MD
[2024-07-18] MEDS: NAPH,KPH MBDB 1 PACKET (1.5 GM) PO (13:51)
[2024-07-18] MEDS: METOPROLOL TARTRATE 25 MG TABLET PO ×2 (13:51→21:31)
[2024-07-18] MEDS: cefTRIAXone/D5w 2gm 2 GM/50 ML BAG IV (13:51)
[2024-07-18] MEDS: ursodioL 300 MG CAPSULE PO ×2 (13:55→21:31)
--- NOTE | 2024-07-18 18:16 | PD.IMCONS ---
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 Patient is a poor historian. all started about 3 weeks ago when he started noticing yellowish discoloration of skin, does complain of pruritus, on and off mild abdominal pain and watery diarrhea on and off. Patient endorsed progressive weakness. Patient is alert and oriented x 3, no asterixis or tremors noted, conversational able to hold conversation, no signs of hepatic encephalopathy. Patient is cachectic, complains of recent weight loss as well. GI was called to evaluate the pt. No other associated symptoms. cc:: cc: Brendan Medina MD Review of Systems Review of Systems Narrative Review of Systems: All 12 points of review of system negative except positive pressure since admission history of present illness Meds Home Medications and Allergies Home Medications ?Medication ?Instructions ?Recorded ?Confirmed ?Type No Known Home Medications 07/05/24 07/05/24 History Allergies Allergy/AdvReac Type Severity Reaction Status Date / Time No Known Allergies Allergy Verified 07/04/24 14:51 Exam Vital Signs Temp Pulse Resp BP Pulse Ox O2 Del Method 98.9 F 58 L 17 128/79 100 Room Air 07/18/24 16:00 07/18/24 16:00 07/18/24 16:00 07/18/24 16:00 07/18/24 16:00 07/18/24 16:00 Routine Abdominal Exam Comments: Abdominal exam benign no tenderness on rebound tenderness or sign of peritonitis no guarding Results Labs 07/18/24 05:17 07/18/24 05:17 Labs: Short CBC 07/18/24 Range/Units 05:17 WBC 3.5 L (3.8-10.6) Thou/mm3 Hgb 10.0 L (13.5-16.0) g/dL Hct 28.3 L (41.0-53.0) % Plt Count 322 D (140-440) Thou/mm3 BMP 07/18/24 05:17 Sodium 136 Potassium 3.8 Chloride 102 Carbon Dioxide 26.8 BUN 9 Creatinine 0.4 L Glucose 211 H Calcium 8.6 Liver Function 07/18/24 Range/Units 05:17 Total Bilirubin 8.2 H D (0.3-1.2) mg/dL AST 51 H (0-34) U/L ALT 53 H (10-49) U/L Alkaline Phosphatase 398 H D (46-116) U/L Albumin 2.9 L (3.4-4.8) gm/dL Assessment and Plan Additional Assessment & Plan Additional Plan: 84-year-old male with past medical history of prostate cancer with yellowish discoloration of skin, increased lethargy with 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 HIDA Scan: Radioisotope activity within the liver is reasonably homogenous. Common bile duct small bowel activity noted Impression: No gallbladder visualization, cystic duct obstruction pattern Based on the results of the HIDA scan it seems that the stent is patent and therefore is not indicated to proceed and change the stent. We will check LFTs tomorrow if bilirubin continues downtrending there will not be any indication to change the stent at this point. Check LFTs daily Consult pattern room attendant Ensure 4 times a day Consult oncologist Will follow
[2024-07-18] MEDS: ENOXAPARIN SOD INJ 60 MG/0.6 ML SYRINGE 55 MG SC (21:30)
[2024-07-19] VITALS (11 sets, daily range): BP systolic 102–135; BP diastolic 53–91; PULSE 48–74; RESP 10–100; TEMP 36.3–37.1; O2SAT 98–100; BMI 17.6
[2024-07-19] MEDS: ursodioL 300 MG CAPSULE PO ×3 (05:40→20:59)
[2024-07-19 06:00] LABS: Alanine Aminotransferase 48 U/L (10-49); Albumin, Serum 2.8 gm/dL (3.4-4.8); Alkaline Phosphatase 393 U/L (46-116); Aspartate Amino Transferase 50 U/L (0-34); Bilirubin,Direct 6.2 mg/dL (0.0-0.3); Total Protein 5.7 gm/dL (5.7-8.2)
[2024-07-19] MEDS: INSULIN LISPRO (AdmeLOG) 1 UNIT/0.01 ML UNIT SC ×3 (07:33→17:32)
[2024-07-19 08:40] LABS: Basophils % (Auto) 1 % (0-2.5); Eosinophils % (Auto) 0 % (0-10); Hematocrit 41.7 % (41.0-53.0); Hemoglobin 14.8 g/dL (13.5-16.0); Immature Granulocytes % (Auto) 0 % (0-0); Immature Granulocytes Auto 0.01 Thou/mm3 (0.00-0.00); Lymphocytes # (Auto) 0.6 Thou/mm3 (1.0-4.8); Lymphocytes % (Auto) 22 % (10-50); Mean Corpuscular HGB Conc 35.5 g/dl (31.0-37.0); Mean Corpuscular Hemoglobin 34.7 pg (25.0-35.0); Mean Corpuscular Volume 98 fL (80-100); Monocytes # (Auto) 0.2 Thou/mm3 (0.0-0.8); Monocytes % (Auto) 9 % (0-12); Neutrophils # (Auto) 1.9 Thou/mm3 (1.8-7.7); Neutrophils % (Auto) 68 % (37-80); Nucleated Red Blood Cell % 0 /100 WBC (0); Platelet Count 145 Thou/mm3 (140-440); RDW Standard Deviation 59.5 fL (35.1-43.9); Red Blood Count 4.27 Miln/mm3 (4.50-5.90)
[2024-07-19 08:58] LABS: INR 1.1 (0.9-1.3); Partial Thromboplastin Time 31.4 Seconds (22.0-36.0); Prothrombin Time 11.7 Seconds (9.0-12.2)
[2024-07-19 09:16] LABS: White Blood Count 2.8 Thou/mm3 (3.8-10.6)
[2024-07-19] MEDS: METOPROLOL SUCCINATE XL 25 MG TABCR PO (10:20)
[2024-07-19] MEDS: ENOXAPARIN SOD INJ 60 MG/0.6 ML SYRINGE 55 MG SC ×2 (10:20→20:58)
[2024-07-19] MEDS: PANTOPRAZOLE INJ 40 MG VIAL IVP (10:22)
[2024-07-19] MEDS: cefTRIAXone/D5w 2gm 2 GM/50 ML BAG IV (10:23)
--- NOTE | 2024-07-19 10:54 | PC.SS ---
Nikole Zamora is a 84 year old male admitted to [facility] for Acute Cholestasis and hyperbilirubinemia. SS made contact with the pt and his friend Nicole Baron [phone]. SS utilized [employer] [facility]. Role and reason explained to friend Nicole and pt. Per Nicole prior to admission pt was renting out a room in an apartment. Per Nicole, the pts health has declined and he has no family his daughter passed recently leaving her the only friend he has. Nicole stated she will help him with any needs but he needs to be placed somewhere other than the apartment where he wa at where has has 24hr care. Pt prior to admission was independent with most ADLS. Roommate would help with meals but that is it. Nicole reports her and the roommate did not get a long and the roommate would stop her from coming over until his health declined and Nicole stated per roommate he cannot go back. SS explained the barrier with searching for Shelter placement, there is a high possibility of having to extend search outside of the area, Nicole and pt aware and expressed understanding. DC Plan: SNF/Long-term DM: FriendNicole
--- NOTE | 2024-07-19 12:00 | ESDS_ITS ---
<Statement entered by Carlos Hartley MD - 07/20/24 13:45> I discussed with and supervised the strategy intern physician involved in the care of this patient. Patient assessment and plan was discussed with entire medicine team, including my attending. I agree with the assessment and plan as documented by strategy intern doctor. Patient care was discussed with my attending physician Dr. Ria Hartley, PGY-2 Planned Discharge Date 07/19/24 DS: Providers Provider Date of admission: 07/15/24 20:53 Primary care physician: Physician No Primary/Family Admitting Provider: Brendan Medina MD Attending Provider on Admission: Brendan Medina MD Consults: 07/15/24 16:31 Consult to Gastroenterology Stat Comment: Liver failure Consulting Provider: Joey Mcnulty 07/16/24 01:37 Health Equity Referral - Knowledge Deficit Routine Comment: Positive screening for knowledge deficit needs. 07/16/24 16:31 Referral Registered Dietitian Routine Comment: underweight, cachexic Attending Provider on DC: Jimmy Trimble MD Discharging Provider: Jimmy Trimble MD DS: Diagnosis Problem List Completed Was Problem List Reviewed/Reconciled?: Yes Hospital Course Hospital Course Hospital course: 84-year-old male with past medical history of prostate cancer status post surgery and chemoradiation, recent placement of hepatic biliary stent for intrahepatic dilation presented to the ED on 07/15/2024 with complaints of yellowish discoloration and altered mental status. Patient is currently admitted for acute encephalopathy due to biliary stent stenosis and hyperbilirubinemia. The patient's Klebsiella pneumonia bacteremia was treated with Zosyn 3.375 g IV Q6 hourly for 3 days from [07/15 - 07/18] and ceftriaxone 2 g IV daily for 2 days from [07/18 - 07/19]. Patient condition improved and she was discharged on levofloxacin 750 Mg p.o. daily for 5 more days to complete 10 days of treatment in total. During hospitalization patient developed new onset atrial fibrillation. He was treated with metoprolol tartrate 25 Mg p.o. twice daily initially and transition to metoprolol XL 25 Mg p.o. daily. He was also treated with Lovenox 55 Mg SC twice daily and transition to Eliquis 2.5 Mg p.o. twice daily upon discharge. With regards to patient's acute metabolic encephalopathy has now resolved and he is back to his baseline mentation. For patient's jaundice he was evaluated by gastroenterology and also had a HIDA scan. HIDA scan completed on 07/18/2024 findings include: Radioisotope activity within the liver is reasonably homogenous. Common bile duct small bowel activity noted Impression: No gallbladder visualization, cystic duct obstruction pattern Gastroenterology, Dr. Ann assessed the patient and recommended no need for ERCP as his stent is patent. Recommended that he sees an oncologist and follows a high-protein diet. He also recommended ursodiol 300 Mg p.o. 3 times daily. All patient's labs are now returning to his baseline. Patient is now clinically stable and fit for discharge to home. Discharge diagnoses: 1. Klebsiella pneumonia bacteremia?resolving 2. Atrial fibrillation?new onset 3. Acute metabolic encephalopathy?resolved 4. Cholangitis?ruled out 5. Hyperbilirubinemia?resolving 6. 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 Hypophosphatemia?resolved 8. Lactic acidosis type B?resolved 9. Tdo-gqeypmw-zkxxbxgiz diabetes mellitus type 2 10. History of prostate cancer status post robotic prostatectomy Discharge plan: - You have been started on a blood thinner to prevent strokes, eliquis. Take one tablet two times a day. - You have been started on a medication Metoprolol XL for your heart rate. Take one tablet once a day. - You have been started on an antibiotic for your blood infection. Take one tablet once a day for 5 more days. - You have been started on a medication Ursodiol for your yellow skin. Take one tablet 3 times a day. - Please Follow up with an oncologist for your elevated Ca 19-9. - Continue to follow up with your GI doctor, Dr. Ann. Please make an appoi ntment 8 weeks after discharge. - Follow up with your primary care physician within 1 week of discharge. If you do not have a primary care physician, please follow up with the [facility] Residents clinic ([phone]) ? If you experience any new, worsening or persistent symptoms either call your primary doctor, or dial 911 or present to the emergency department. We are grateful to be able to participate in Mr. Zamora's care. We wish him the best. Plan of care discussed with Attending Dr. Rollins and PGY2 Dr. Odilia Trimble MD PGY 1 Time Spent with Patient Time attestation: Total time spent providing and/or coordinating discharge services: Time spent: Greater than 30 minutes (36) Exam Vital Signs Temp Pulse Resp BP Pulse Ox O2 Del Method 98.4 F 74 19 135/83 H 98 Room Air 07/19/24 08:00 07/19/24 10:20 07/19/24 08:24 07/19/24 10:20 07/19/24 08:00 07/19/24 08:00 Narrative Exam Constitutional Alert, oriented x 3 and comfortable. Elderly male, bitemporal wasting, cachectic, generalized jaundice, scleral icterus. HEENT Vision grossly intact. Patent nares. Trachea midline Respiratory Chest normal on inspection and clear auscultation bilaterally Cardiovascular S1 and S2 audible, RRR. No murmurs carotid bruit. No gross JVD. Abdominal Soft and non tender to palpation in all quadrants. BS + Genitourinary No bladder tenderness, no flank pain. Normal to palpation Musculoskeletal Extremities tone within normal limits. No LE edema. Neurological CN II - XII grossly intact. Extremity motor and sensation grossly intact. Skin Warm, dry and intact. Generalized jaundice Psychiatric Patient has good affect, is cooperative Discharge Plan Plan Patient Disposition: HOME (Self Care) Disposition Comment: Stable Care Plan Goals: - You have been started on a blood thinner to prevent strokes, eliquis. Take one tablet two times a day. - You have been started on a medication Metoprolol XL for your heart rate. Take one tablet once a day. - You have been started on an antibiotic for your blood infection. Take one tablet once a day for 5 more days. - You have been started on a medication Ursodiol for your yellow skin. Take one tablet 3 times a day. - Please Follow up with an oncologist for your elevated Ca 19-9. - Continue to follow up with your GI doctor, Dr. Ann. Please make an appointment 8 weeks after discharge. - Follow up with your primary care physician within 1 week of discharge. If you do not have a primary care physician, please follow up with the [facility] Residents clinic ([phone]) ? If you experience any new, worsening or persistent symptoms either call your primary doctor, or dial 911 or present to the emergency department. Prescriptions/Referrals Prescriptions/Med Rec: New levofloxacin 500 mg tablet 500 mg PO QDAY Qty: 5 0RF ursodiol 300 mg capsule 300 mg PO TID Qty: 90 0RF metoprolol succinate [Toprol XL] 25 mg tablet extended release 24 hr 25 mg PO QDAY Qty: 30 1RF Eliquis 2.5 mg tablet 2.5 mg PO BID Qty: 60 1RF Referrals: Twin Padilla MD [Physician] - No Primary/Family,Physician [Primary Care Provider] - Joey Mcnulty MD [Physician] - Patient/Caregiver Discharge Instructions Print Language: Bahraini Stand Alone Forms: Brandi Award Info., Patient Portal Info Letter Discharge Order Discharge Orders: Discharge (Routine); Ordered 07/19/24 Ordered By: Jimmy Trimble Quality Discharge Quality Measures VTE prophylaxis Attestestation MD Attestation I attest that I was physically present for the evaluation, physical examination, lab and imaging review of the patient with the residents. I discussed the case with the residents and agree with the findings and plans of care as documented above. Patient completed his HIDA scan yesterday evening, did not show any cystic duct obstruction. Discussed with GI, stated patient stable for discharge on oral ursodiol and antibiotics. Patient appears comfortable at bedside, denies any complaints. Vital results vital signs are stable. Liver function continues to improve. We will discharge patient home. Recommended to follow-up with GI after 8 weeks of discharge. Also recommended to follow-up with oncology for his prostate cancer evaluation. Recommended to follow-up with cardiology for new onset A-fib. Follow-up with PCP in 1 to 2 weeks of discharge. Lashay Rollins MD
--- NOTE | 2024-07-19 15:28 | PC.SS ---
SNF referral submitted on [facility] platform awaiting responses.
--- NOTE | 2024-07-19 15:31 | PC.SS ---
PASSR completed. Patient meets Level I criteria. No PASSR follow up required.
--- NOTE | 2024-07-19 16:42 | PC.SS ---
Addendum entered and electronically signed by KAREN Alarcon 07/19/24 16:57: [facility] placement pending bed availability. LUMBER PILER OPERATOR met with patient at bedside to provide update and to discuss secondary SNF option. Patient requested that LUMBER PILER OPERATOR contact friend Nicole Baron to provide update and to discuss SNF option. LUMBER PILER OPERATOR attempted phone call with Nicole, no response, unable to leave voicemail . Original Note: LUMBER PILER OPERATOR informed patient and patient's friend, Nicole; that the following SNF's have accepted the patient for placement: [facility], [facility] and [facility]. Preferred choice is [facility]. LUMBER PILER OPERATOR attempted phone call with SNF hospital unit coordinator to schedule transport, awaiting response.
[2024-07-20] VITALS (8 sets, daily range): BP systolic 125–147; BP diastolic 69–82; PULSE 55–80; RESP 13–18; TEMP 36.6–36.7; O2SAT 99–100
[2024-07-20] MEDS: SENNA TABLET 1 TAB PO (05:32)
[2024-07-20] MEDS: ursodioL 300 MG CAPSULE PO (05:32)
[2024-07-20 05:50] LABS: Basophils % (Auto) 1 % (0-2.5); Eosinophils % (Auto) 0 % (0-10); Hematocrit 27.1 % (41.0-53.0); Hemoglobin 9.7 g/dL (13.5-16.0); Immature Granulocytes % (Auto) 0 % (0-0); Immature Granulocytes Auto 0.01 Thou/mm3 (0.00-0.00); Lymphocytes % (Auto) 23 % (10-50); Mean Corpuscular HGB Conc 35.8 g/dl (31.0-37.0); Mean Corpuscular Hemoglobin 34.5 pg (25.0-35.0); Mean Corpuscular Volume 96 fL (80-100); Monocytes # (Auto) 0.4 Thou/mm3 (0.0-0.8); Monocytes % (Auto) 10 % (0-12); Neutrophils # (Auto) 2.8 Thou/mm3 (1.8-7.7); Neutrophils % (Auto) 67 % (37-80); Nucleated Red Blood Cell % 0 /100 WBC (0); Platelet Count 218 Thou/mm3 (140-440); RDW Standard Deviation 59.4 fL (35.1-43.9); Red Blood Count 2.81 Miln/mm3 (4.50-5.90); White Blood Count 4.2 Thou/mm3 (3.8-10.6)
[2024-07-20 06:19] LABS: Alanine Aminotransferase 41 U/L (10-49); Alkaline Phosphatase 376 U/L (46-116); Anion Gap 9 (7-16); Aspartate Amino Transferase 42 U/L (0-34); BUN/Creatinine Ratio 26 Ratio (12-20); Bilirubin,Total 7.9 mg/dL (0.3-1.2); Blood Urea Nitrogen 13 mg/dL (9-23); Calcium 8.7 mg/dL (8.3-10.6); Calcium (Corrected) 9.5 mg/dL (8.5-10.1); Carbon Dioxide 28.3 mMol/L (20.0-31.0); Chloride 98 mMol/L (98-107); Creatinine (Component) 0.5 mg/dL (0.6-1.3); Estimated Creatinine Clearance 84.8 mL/min (>60); Globulin 3.1 gm/dL (2.3-3.5); Glucose 231 mg/dL (74-106); Magnesium 1.6 mg/dL (1.6-2.6); Osmolality,Calculated 277 (275-295); Phosphorous 1.7 mg/dL (2.4-5.1); Potassium 3.8 mMol/L (3.4-5.1); Sodium 135 mMol/L (136-145); Total Protein 6.1 gm/dL (5.7-8.2); eGFR > 60 See Note
[2024-07-20] MEDS: INSULIN LISPRO (AdmeLOG) 1 UNIT/0.01 ML UNIT SC (07:27)
--- NOTE | 2024-07-20 07:52 | PC.SS ---
SCHOOL GUARD conducted phone contact with patient's friend, Nicole Baron; to discuss secondary SNF options for the patient. [facility] SNF chosen. SCHOOL GUARD updated patient. Patient in agreement to transition to [facility] SNF.
[2024-07-20] MEDS: PANTOPRAZOLE INJ 40 MG VIAL IVP (09:22)
[2024-07-20] MEDS: METOPROLOL SUCCINATE XL 25 MG TABCR PO (09:22)
[2024-07-20] MEDS: ENOXAPARIN SOD INJ 60 MG/0.6 ML SYRINGE 55 MG SC (09:22)
[2024-07-20] MEDS: NAPH,KPH MBDB 1 PACKET (1.5 GM) PO (09:22)
[2024-07-20] MEDS: cefTRIAXone/D5w 2gm 2 GM/50 ML BAG IV (09:24)
--- NOTE | 2024-07-20 11:17 | PC.SS ---
SS spoke to Rebecca at [facility] they will accept pt today. has met with pt who is agreeable to [facility]. has called and spoke to Nicole who is also agreeable for pt to d/c to [facility]. has setup gurney transportation with Souleymane from [facility] who transferred SS to [place]. SS has requested [facility]. Per , they will attempt to contact [facility] but it is not guaranteed. Ref# [id number]. requested transport time of 1pm, per [facility]'s request. Per Jun, estimated time for transportation is 4 hours. has spoke to Chely at [facility] who has placed pt on will call list until they have been contacted by [facility]. Patient's facesheet and ambulance form has been sent to [facility] using [employer]. Pt is aware. Friend, Nicole is aware. Rebecca from [facility] is aware. Bedside nurse is aware. WINSTON Marshall is aware. WINSTON Marcelino is aware.
--- NOTE | 2024-07-20 11:55 | PC.NURSE ---
Report called to SNF ([facility]) nurse Lashawn @ this time. Discharge plan discussed with her as well as medications and follow up appointments.
--- NOTE | 2024-07-20 15:56 | PD.RESEVENT ---
Documentation for date of: 07/20/24
--- NOTE | 2024-07-20 21:58 | ESDS_ITS ---
<Statement entered by Estefany De DO - 07/21/24 08:13> I, Estefany De DO, attest that I was physically present for the mandel portions of the service and evaluated the patient with the resident and I reviewed and discussed the case with the resident and agree with the resident's findings and plans of care as documented above Planned Discharge Date 07/20/24 DS: Providers Provider Date of admission: 07/15/24 20:53 Primary care physician: Physician No Primary/Family Admitting Provider: Brendan Medina MD Attending Provider on Admission: Estefany De DO Consults: 07/15/24 16:31 Consult to Gastroenterology Stat Comment: Liver failure Consulting Provider: Joey Mcnulty 07/16/24 01:37 Health Equity Referral - Knowledge Deficit Routine Comment: Positive screening for knowledge deficit needs. 07/16/24 16:31 Referral Registered Dietitian Routine Comment: underweight, cachexic Attending Provider on DC: Carlos Hartley MD Discharging Provider: Carlos Hartley MD DS: Diagnosis Problem List Completed Was Problem List Reviewed/Reconciled?: Yes Hospital Course Hospital Course Hospital course: Mr. Zamora a 84-year-old male patient with significant medical history of prostate cancer s/p surgery and chemo-radiation, recent placement of hepatic biliary stent for intrahepatic dilation (at [place]) was brought to the ED on 07/15/2024 for yellowing of skin and altered mental status. Patient was admitted for further workup and management of acute encephalopathy due to possible hepatic biliary stent stenosis HIDA scan and possible ERCP. While in hospital patient was also treated for Klebsiella bacteremia with IV Zosyn and Rocephin. During his hospitalization, patient developed new onset atrial fibrillation. He was treated with metoprolol tartrate 25 Mg p.o. twice daily initially and transition to metoprolol XL 25 Mg p.o. daily. He was also treated with Lovenox 55 Mg SC twice daily and transition to Eliquis 2.5 Mg p.o. twice daily upon discharge. Lead Pl Sql Developer Dr. Ann performed HIDA sca non patient on 07/18/24 which indicated patent common bile duct, no need for ERCP was needed. Over time patient became stable and was ready to be discharged to SNF on x4 [place] of Augmentin, Eliquis, Metoprolol and Ursodiol. #Acute encephalopathy #Afib RVR, new onset #Acute cholestasis #Hyperbilirubinemia #DM2, A1c 9.2 #History of prostate cancer Discharge plan: - You have been started on a blood thinner to prevent strokes, eliquis. Take one tablet two times a day. - You have been started on a medication Metoprolol XL for your heart rate. Take one tablet once a day. - You have been started on an antibiotic for your blood infection. - You have been started on a medication Ursodiol for your yellow skin. Take one tablet 3 times a day. - Please Follow up with an oncologist for your elevated Ca 19-9. - Continue to follow up with your GI doctor, Dr. Ann. Please make an appointment 8 weeks after discharge. - Follow up with your primary care physician within 1 week of discharge. If you do not have a primary care physician, please follow up with the [facility] Residents clinic ([phone]) ? If you experience any new, worsening or persistent symptoms either call your primary doctor, or dial 911 or present to the emergency department. Discharge summary was reviewed with my attending Dr. Santino Hartley, PGY-2 Time Spent with Patient Time attestation: Total time spent providing and/or coordinating discharge services: Time spent: Greater than 30 minutes Exam Vital Signs Temp Pulse Resp BP Pulse Ox O2 Del Method 97.8 F 65 13 140/73 H 99 Room Air 07/20/24 13:39 07/20/24 13:39 07/20/24 13:39 07/20/24 13:39 07/20/24 13:39 07/20/24 13:39 Narrative Exam Constitutional Alert, oriented x 3 and comfortable. Elderly male, bitemporal wasting, cachectic, generalized jaundice, scleral icterus. HEENT Vision grossly intact. Patent nares. Trachea midline Respiratory Chest normal on inspection and clear auscultation bilaterally Cardiovascular S1 and S2 audible, RRR. No murmurs carotid bruit. No gross JVD. Abdominal Soft and non tender to palpation in all quadrants. BS + Genitourinary No bladder tenderness, no flank pain. Normal to palpation Musculoskeletal Extremities tone within normal limits. No LE edema. Neurological CN II - XII grossly intact. Extremity motor and sensation grossly intact. Skin Warm, dry and intact. Generalized jaundice Psychiatric Patient has good affect, is cooperative Discharge Plan Plan Patient Disposition: Xfer Skilled Nsg Fac (SNF) Patient condition on transfer: Stable Care Plan Goals: - You have been started on a blood thinner to prevent strokes, eliquis. Take one tablet two times a day. - You have been started on a medication Metoprolol XL for your heart rate. Take one tablet once a day. - You have been started on an antibiotic for your blood infection. Take one tablet once a day for 5 more days. - You have been started on a medication Ursodiol for your yellow skin. Take one tablet 3 times a day. - Please Follow up with an oncologist for your elevated Ca 19-9. - Continue to follow up with your GI doctor, Dr. Ann. Please make an appointment 8 weeks after discharge. - Follow up with your primary care physician within 1 week of discharge. If you do not have a primary care physician, please follow up with the [facility] Residents clinic ([phone]) ? If you experience any new, worsening or persistent symptoms either call your primary doctor, or dial 911 or present to the emergency department. Prescriptions/Referrals Prescriptions/Med Rec: New ursodiol 300 mg capsule 300 mg PO TID Qty: 90 0RF metoprolol succinate [Toprol XL] 25 mg tablet extended release 24 hr 25 mg PO QDAY Qty: 30 1RF Eliquis 2.5 mg tablet 2.5 mg PO BID Qty: 60 1RF amoxicillin-pot clavulanate [Augmentin] 500-125 mg tablet 1 tab PO BID Qty: 8 0RF Referrals: Twin Padilla MD [Physician] - No Primary/Family,Physician [Primary Care Provider] - Joey Mcnulty MD [Physician] - Patient/Caregiver Discharge Instructions Print Language: Slovenian Stand Alone Forms: Brandi Award Info., Patient Portal Info Letter Discharge Order Discharge Orders: Discharge (Routine); Ordered 07/20/24 Ordered By: Mauri Power Quality Discharge Quality Measures VTE prophylaxis
== END 2024-07-20 13:52 | disposition skilled nursing facility (03) | DRG 444 ==
LOC: SERX 17:52 → SERHOLD 21:40 → S3NX 07-16 00:45 → S2NX 07-17 18:51
PROVIDERS: Internal Medicine Gastroenterology; Nurse Practitioner Family; Student in an Organized Health Care Education/Training Program; Admitting Provider Internal Medicine; Emergency Provider Emergency Medicine; Visit Provider Internal Medicine
DX: K83.1 Obstruction of bile duct (principal); E43 Unspecified severe protein-calorie malnutrition; G93.41 Metabolic encephalopathy; C22.1 Intrahepatic bile duct carcinoma; R64 Cachexia; Z68.1 Body mass index [BMI] 19.9 or less, adult; E87.20 Acidosis, unspecified; R78.81 Bacteremia; E86.0 Dehydration; E11.9 Type 2 diabetes mellitus without complications; E83.39 Other disorders of phosphorus metabolism; I48.91 Unspecified atrial fibrillation; Z85.46 Personal history of malignant neoplasm of prostate; F15.90 Other stimulant use, unspecified, uncomplicated; B96.1 Klebsiella pneumoniae [K. pneumoniae] as the cause of diseases classified elsewhere; Z90.79 Acquired absence of other genital organ(s); Z79.84 Long term (current) use of oral hypoglycemic drugs; Y83.8 Other surgical procedures as the cause of abnormal reaction of the patient, or of later complication, without mention of misadventure at the time of the procedure; Z79.899 Other long term (current) drug therapy; Z92.21 Personal history of antineoplastic chemotherapy; Z92.3 Personal history of irradiation; T85.858A Stenosis due to other internal prosthetic devices, implants and grafts, initial encounter
CPT/HCPCS: 36415; 70450; 74177; 78227; 80053; 80074; 80076; 80307; 80329; 81001; 82140; 82248; 83605; 83690; 83735; 84100; 84145; 84439; 84443; 85014; 85018; 85025; 85610; 85730; 87040; 87077; 87081; 87186; 93005; 93225; 94664; 96365; 96372; 99285; A4649; A9537; J0696; J1643; J1650; J1815; J2470; J2543; J3475; J7030; J7040; J7120; Q9967; A9270; G0480

== ENCOUNTER 2024-07-24 13:57 | Emergency (ER) | payer MEDICARE, MEDICAID, SELFPAY ==
[2024-07-24 14:27] VITALS: PULSE 94; RESP 18; O2SAT 97; BMI 19.8
--- NOTE | 2024-07-24 14:27 | EKG_ITS ---
[facility] Test Date: 2024-07-24 Pat Name: KEILA NELSON Department: Room: - Gender: Male Document Improvement Specialist: : 1940 Requested By: Junaid Crabtree Order Number: [id number] Reading MD: Junaid Crabtree Measurements Intervals [place] Rate: 85 P: MN: QRS: 43 QRSD: 90 T: 89 QT: 373 QTc: 446 Interpretive Statements ATRIAL FIBRILLATION LOW QRS VOLTAGE IN EXTREMITY LEADS [QRS DEFLECTION < 0.5 mV IN LIMB LEADS] NONSPECIFIC ST & T-WAVE ABNORMALITY ABNORMAL RHYTHM ECG Compared to ECG 07/17/2024 20:13:58 Low QRS voltage now present Atrial flutter no longer present T-wave abnormality still present /store/S0/[id number]
--- NOTE | 2024-07-24 14:28 | EDNOTE_ITS ---
ED Weakness RME/HPI General Chief complaint: Weakness Stated complaint: HYPOTENSION Time Seen by Provider: 07/24/24 13:58 Arrival date/time: 07/24/24 13:57 RME / HPI RME / HPI Narrative: DR. CRABTREE MAIN ED EVALUATION: 84 year old male with past medical history significant for prostate cancer, hypertension, diabetes, COPD, liver failure, muscle wasting and atrophy, on blood thinners presents to the Emergency Department [facility] from [facility] with complaint of generalized weakness. Symptoms are severe. Per EMS, [facility] staff reported they could not get a pulse or blood pressure and sent him over for evaluation. Initial blood pressure per EMS was 76/42 and heart rate 94; after EMS gave fluids blood pressure increased to 107/68. Patient is a GCS of 15 and is a full code. Related Data Previous Rx's ?Medication ?Instructions ?Recorded apixaban 2.5 mg tablet (Eliquis) 2.5 mg PO BID #60 tab s 07/19/24 metoprolol succinate 25 mg 25 mg PO QDAY #30 tabs 07/02 01/23 tablet,extended release 24 hr (Toprol XL) ursodiol 300 mg capsule 300 mg PO TID #90 caps 07/19 amoxicillin 500 mg-potassium 1 tab PO BID #8 tabs 07/02 02/23 clavulanate 125 mg tablet (Augmentin) Allergies Allergy/AdvReac Type Severity Reaction Status Date / Time No Known Allergies Allergy Verified 07/04/24 14:51 Review of Systems Review of Systems Systems Reviewed: All systems reviewed, normal except as documented Narrative Review of Systems: GEN: No fever, no chills, no weight loss EYES: No discharge, no visual changes, no pain HEENT: No ear pain, no congestion, no sore throat PULM: No shortness of breath, no cough, no congestion CV: No chest pain, no dyspnea on exertion, no palpitations GI: No nausea, no vomiting, no diarrhea, no pain, no constipation : No frequency, no urgency and no dysuria MUSC/SKEL: No joint pain, no back pain SKIN: No rash PSYCH: No hallucinations, no depression HEME/LYMPH: No easy bleeding or bruising tendencies NEURO: + generalized weakness, no headache Past Medical History Past Medical History GENITOURINARY: Positive Prostate Cancer OTHER HISTORY: Positive Cancer and Prostate Cancer Social History SMOKING STATUS: Never smoker ED Exam Narrative Physical exam: Physical Exam: General: The vital signs were reviewed. Patient is hypotensive per EMS he is extremely jaundiced he is very cachectic he is alert answering questions with a very soft voice. The patient is non-toxic, in no apparent distress and appears healthy with a patent airway, no respiratory distress and has no apparent circulatory problems. Head & Scalp: Normocephalic, atraumatic. Face: Appears normal and is without lesions, deformity. Ears: Left external pinna appears normal. Right external pinna appears normal. Eyes: The sclera is anicteric. No obvious photophobia. The Left and Right Orbit/Lid/Conjunctiva appears normal without swelling, discoloration or injection. Nose: The nose is without deformity, discharge or tenderness; Throat: Appears normal. The mucous membranes are pink and moist without exudates, redness or mass seen. The tongue appears normal. Neck: The neck is supple and no apparent mass or adenopathy. Chest: The chest wall is normal in size and symmetry and has no chest wall tenderness or crepitus. The patient displays normal ventilator effort without retractions, accessory muscle use and has adequate air movement bilaterally with no wheezes and no rales. Cardiovascular: Regular rate and rhythm; No murmurs, rubs, or gallops; Gastrointestinal: The abdomen appears normal. No obvious hernias or mass. The abdomen is soft and benign, non-distended, with no pain, no guarding and no rebound tenderness. Bowel sounds are present and normal sounding. No CVA tenderness. Genitourinary: Back/Spine: Extremities/Musculoskeletal/lymphatic: The bilateral upper and lower extremities are warm. There is no evidence of arterial insufficiency. There is no evidence of venous insufficiency/edema. The patient spontaneously moves bilateral upper and lower extremities with no pain and no limitation of movement. There is no apparent, injury or trauma. Skin: Jaundiced otherwise the skin is warm, dry and intact. No rashes. No petechia. No purpura. No abnormal bruising. The color is appropriate with no cyanosis. Mental status/Psychiatric: Mental status is appropriate for age. The patient has no apparent delusions, visual hallucinations, no apparent audible hallucinations. The patient has no apparent suicidal thoughts/ideation and no apparent homicidal thoughts/ideation. Neurological: The patient is awake, alert, interactive, cordial, cooperative and is oriented to name and situation. The patient follows commands and answers historical question with no impairment. There is no visual disturbance apparent. The pupils are equal and reactive bilaterally with normal eye movements and no diplopia The bilateral upper and lower extremities have normal strength, normal range of motion and normal functioning. The gait, station and balance were not tested due to acuity. Course Quality Measures none Orders Category Date Time Status Bedside Blood Glucose NOW Care 07/24/24 14:27 Active EKG (ED ONLY) *Do not use* NOW Care 07/24/24 14:27 Completed EKG (ED Only) Stat Exams 07/24/24 14:27 Draft XR chest 1V portable Stat Exams 07/24/24 14:27 Completed Alcohol, Blood Medical Stat Lab 07/24/24 15:20 Completed Ammonia Stat Lab 07/24/24 15:20 Completed B-Type Natriuretic Peptide Stat Lab 07/24/24 15:20 Completed Blood Culture (Lab) Stat Lab 07/24/24 15:20 Received CBC Stat Lab 07/24/24 15:20 Completed Comprehensive Metabolic Panel Stat Lab 07/24/24 15:20 Completed Drug Screen,Urine Stat Lab 07/24/24 14:27 Ordered Lactate (Lactic Acid) Stat Lab 07/24/24 15:20 Results Procalcitonin Stat Lab 07/24/24 15:20 Completed Prothrombin Time with INR Stat Lab 07/24/24 15:20 Completed Troponin I Stat Lab 07/24/24 15:20 Completed Type and Screen Stat Lab 07/24/24 16:53 Results Urinalysis Stat Lab 07/24/24 14:27 Ordered Urinalysis, C/S if Indicated Stat Lab 07/24/24 14:27 Ordered Venous Blood Gas Stat Lab 07/24/24 15:20 Completed Piper/Tazo Inj [Zosyn Inj] 3.375 gm Med 07/24/24 17:43 Active SODIUM CHLORIDE 0.9% (Popper) [NS 0.9% (Popper)] 50 ml IV X1 Ringers Lactated 1000 ml [Lactated Ringers] 1,000 ml Med 07/24/24 17:43 Active IV 125 mls/hr Ringers Lactated 1000 ml [Lactated Ringers] 1,000 ml Med 07/24/24 17:43 Active IV 999 mls/hr Sodium Chloride 0.9% 1000 ml [Ns] 1,000 ml Med 07/24/24 14:27 Discontinued IV 1,000 mls/hr Sodium Chloride 0.9% 1000 ml [Ns] 1,000 ml Med 07/24/24 14:27 Discontinued IV 2,000 mls/hr Vital Signs Vital signs: Vital Signs Temperature 96.2 F L 07/24/24 14:50 Respiratory Rate 20 07/24/24 14:50 Blood Pressure 104/88 H 07/24/24 14:50 Oxygen Flow Rate 4 07/24/24 14:50 Weakness MDM Narrative MDM Narrative:: I, Daily Manning, am scribing for and in the presence of Dr. Crabtree. Patient returns from to the hospital with increased weakness hypotension incredibly jaundiced and was just in the hospital for an extended course and treatment ? for that long note. Patient was mentating clearly on arrival and after a liter of fluid by EMS his blood pressure was not over 100. Medical workup came back with the following white count 6.5 hemoglobin 8.7 which is similar to previous hemoglobins with a left shift of 89%. Patient has a coagulopathy PT of 16.5 and INR of 1.6 pH is 7.43 with a pCO2 of 31 sodium 133 potassium 5.7 anion gap is 20 BUN is elevated at 80 was normal a week ago creatinine is 3.8 again normal a week ago. Total bilirubin is elevated 10.7 procalcitonin is 23.2. Despite 2 or 3 L of fluid now there are still no urine output Because of the obvious acute renal failure poor p.o. intake patient needs to be admitted. Hospitalist was called spoke with Dr. De and she will be admitting and Dr. Maya reeder was called and will be consulting Because of the elevated lactic acid although there is no obvious source the chest x-ray shows no obvious acute infiltrate or pneumonia. There is some increased vascular markings. Discussed with Dr. De about antibiotics besides Zosyn and they are going to come down see this patient and make some decisions. Because of the possibility of sepsis elevated lactic acid procalcitonin and the stent in his biliary tree and immunocompromise from liver insufficiency or failure this is a critical care patient. He has had 3 L of fluid is gone to get more. Patient is complaining of epigastric plain per Dr. De who just came down to see the patient. And they will make decisions of extending the antibiotics as mentioned earlier. Patient data External records reviewed:: [facility] previous records (Reviewed last admission discharge dated 07/20/24, patient admitted for the following: Altered mental status), EMS form and [facility] records Clinical information provided by:: patient and EMS Social determinants that could affect healthcare access:: housing (usp) Patient has the following chronic illnesses:: Prostate cancer, hypertension, diabetes, COPD, liver failure, muscle wasting and atrophy, on blood thinners Code Status: Full code How is presenting disease/condition affected by chronic disease/condition?: exacerbated by Evaluation data The following diagnostics were reviewed and interpreted by me:: lab results, radiology exam(s) and EKG tracing(s) (EKG#1: EKG at 1512 hours. Interpreted by me: uncertain rhythm, rate 85, maybe P wave but unclear due to a lot of artifact, no STEMI) Lab and/or radiology exams considered but not ordered:: none Interpretation Summary: See above under MDM narrative. RADIOLOGY Procedure(s): XR chest 1V portable Accession Number(s): [id number] cc: Cesar Martinez MD; Junaid Crabtree MD; Abdulkadir Harrison MD~ Examination: AP chest single view Technique one AP portable semiupright chest single view Exam date and time: July 24, 2024 1440 hrs. Comparison December 18, 2018 Indications: Chest pain onset today. Findings: Normal heart size Moderate vascular congestion Accentuation bronchovascular markings. No lobar pneumonia Nodular density overlying the right hilar region measuring 13 mm Impression: Bronchitis pattern Moderate vascular congestion Recommend AP lordotic chest follow-up to exclude 13 mm pulmonary nodule right lung Dictated By: Abdulkadir Harrison MD Medications / Prescriptions Medications or Prescriptions considered but not ordered:: none Medication administrations:: Medication Administration History Piperacillin Sod/Tazobactam (Sod 3.375 gm/ Sodium Chloride) 50 mls @ 100 mls/hr IV X1 ONE Stop: 07/24/24 18:12 Lactated Ringer's (Lactated Ringers) 1,000 mls @ 999 mls/hr IV .Q1H1M ONE Stop: 07/24/24 18:43 Lactated Ringer's (Lactated Ringers) 1,000 mls @ 125 mls/hr IV .Q8H ONE Stop: 07/25/24 01:42 Discontinued Medications Sodium Chloride (Ns) 1,000 mls @ 1,000 mls/hr IV .Q1H ONE Stop: 07/24/24 15:26 Last Infusion: 07/24/24 16:32 Dose: Infused Documented By: Admin: 07/24/24 15:28 Dose: 1,000 mls/hr Documented By: JAMES Sodium Chloride (Ns) 1,000 mls @ 2,000 mls/hr IV .Q30M ONE Stop: 07/24/24 14:56 Last Admin: 07/24/24 15:24 Dose: Not Given Documented By: JAMES Non-Admin Reason: Cancelled by Provider see above Consultations Consultation(s) initiated? (list below): Yes Consultation #1 (Physician, Specialty, Details): Discussed test HPI, PMHx, lab, radiology results and/or management with hospitalist Dr. De. See above under MDM narrative. Time: 17:50 Diagnosis Weakness Differential Diagnosis: acute myocardial infarction, sepsis, dehydration and other (hypotension) Most likely diagnosis given after review of the tests above:: hypotension, severe weakness, and dehydration Admission Indicated Admission indicated?: indicated Admission Request Was there a request for admission?: Yes Admission Attestation Admission request attestation: Discussed case with [] from Hospitalist service regarding admission. Discussed patients ED course, exam findings, labs, and radiology results. The Hospitalist [agrees,declines] to accept the patient for admission. Disposition Plan Disposition Plan: Admit Critical Care Time Critical Care Time Critical Care Time: Yes Total Critical Care Time (min.): 45 Attestation: hypotension, severe weakness, and dehydration The high probability of sudden, clinically significant deterioration in the patient?s condition required the highest level of my preparedness to intervene urgently. The services I provided to this patient were to treat and/or prevent clinically significant deterioration. Services included the following: chart data review, reviewing nursing notes and/or old charts, documentation time, programmer analyst consultant collaboration regarding findings and treatment options, medication orders and management, direct patient care, vital sign assessments and ordering, interpreting and reviewing diagnostic studies and lab tests. Aggregate critical care time includes only time during which I was engaged in work directly related to the patient?s care, as described above, whether at bedside or elsewhere in the Emergency Department. It did not include time spent performing other reported procedures or the services of residents, students, nurses or physician assistants. Discharge Plan Plan Patient Disposition: Admit Acute Care w/in Hospital Disposition Comment: Admit Dr. Santino Mondragon nephrology to consult Prescriptions/Referrals Prescriptions/Med Rec: No Action ursodiol 300 mg capsule 300 mg PO TID Qty: 90 0RF metoprolol succinate [Toprol XL] 25 mg tablet extended release 24 hr 25 mg PO QDAY Qty: 30 1RF Eliquis 2.5 mg tablet 2.5 mg PO BID Qty: 60 1RF amoxicillin-pot clavulanate [Augmentin] 500-125 mg tablet 1 tab PO BID Qty: 8 0RF Referrals: Cesar Martinez MD [Primary Care Provider] - In 1 week Problem List Clinical Impression: Acute hypotension, Dehydration, severe, Acute kidney injury, Jaundice, Elevated lactic acid level, Epigastric pain Patient/Caregiver Discharge Instructions Print Language: Tristanian Stand Alone Forms: Brandi Award Info., Patient Portal Info Letter
[2024-07-24 14:50] VITALS: BP 104/88; RESP 20; TEMP 35.7
[2024-07-24] MEDS: SODIUM CHLORIDE 0.9% 1000 ML 1,000 ML IV (15:28)
[2024-07-24 15:52] LABS: Base Excess, Venous -3 (-3-3); O2 Saturation, Venous 64 % (96-97); PCO2, Venous 31 mmHg (36-56); PO2, Venous 35 mmHg (15-58); pH, Venous 7.43 (7.33-7.66)
[2024-07-24 15:58] LABS: Lactate (Lactic Acid) 9.9 mMol/L (0.4-2.0)
[2024-07-24 15:59] LABS: Basophils % (Auto) 0 % (0-2.5); Eosinophils % (Auto) 0 % (0-10); Hematocrit 24.9 % (41.0-53.0); Immature Granulocytes % (Auto) 0 % (0-0); Immature Granulocytes Auto 0.02 Thou/mm3 (0.00-0.00); Lymphocytes # (Auto) 0.3 Thou/mm3 (1.0-4.8); Lymphocytes % (Auto) 5 % (10-50); Mean Corpuscular HGB Conc 34.9 g/dl (31.0-37.0); Mean Corpuscular Hemoglobin 34.5 pg (25.0-35.0); Mean Corpuscular Volume 99 fL (80-100); Monocytes # (Auto) 0.3 Thou/mm3 (0.0-0.8); Monocytes % (Auto) 5 % (0-12); Neutrophils # (Auto) 5.8 Thou/mm3 (1.8-7.7); Neutrophils % (Auto) 89 % (37-80); Nucleated Red Blood Cell % 0 /100 WBC (0); Platelet Count 251 Thou/mm3 (140-440); RDW Standard Deviation 66.5 fL (35.1-43.9); Red Blood Count 2.52 Miln/mm3 (4.50-5.90); White Blood Count 6.5 Thou/mm3 (3.8-10.6)
[2024-07-24 16:01] LABS: Hemoglobin 8.7 g/dL (13.5-16.0)
[2024-07-24 16:09] LABS: INR 1.6 (0.9-1.3); Prothrombin Time 16.5 Seconds (9.0-12.2)
[2024-07-24 16:12] LABS: Ammonia 35 uMol/L (11-32)
[2024-07-24 16:20] LABS: B-Type Natriuretic Peptide 32 pg/mL (0-100)
[2024-07-24 16:31] LABS: Alanine Aminotransferase 260 U/L (10-49); Albumin, Serum 2.8 gm/dL (3.4-4.8); Albumin/Globulin Ratio 0.9 (1.2-2.2); Alcohol, Blood Medical < 3.0 mg/dL (0-10.0); Alkaline Phosphatase 955 U/L (46-116); Anion Gap 20 (7-16); Aspartate Amino Transferase 708 U/L (0-34); BUN/Creatinine Ratio 21 Ratio (12-20); Bilirubin,Total 10.7 mg/dL (0.3-1.2); Blood Urea Nitrogen 80 mg/dL (9-23); Calcium 8.4 mg/dL (8.3-10.6); Calcium (Corrected) 9.4 mg/dL (8.5-10.1); Carbon Dioxide 20.8 mMol/L (20.0-31.0); Chloride 92 mMol/L (98-107); Creatinine (Component) 3.8 mg/dL (0.6-1.3); Estimated Creatinine Clearance 14.4 mL/min (>60); Glucose 252 mg/dL (74-106); Osmolality,Calculated 299 (275-295); Potassium 5.7 mMol/L (3.4-5.1); Sodium 133 mMol/L (136-145); Total Protein 5.8 gm/dL (5.7-8.2); Troponin I 0.026 ng/mL (0.0-0.045); eGFR 15 See Note
[2024-07-24 17:09] VITALS: BP 124/103; PULSE 89; RESP 16; TEMP 35.6; O2SAT 100
[2024-07-24] MEDS: SODIUM CHLORIDE 0.9% 1000 ML 1,000 ML 999 ML IV (18:20)
[2024-07-24 18:25] VITALS: BP 75/66; PULSE 91; RESP 14
--- NOTE | 2024-07-24 18:42 | PC.NURSE ---
ICU TEAM AT BEDSIDE TO PERFORM CENTRAL LINE. PATIENT ABLE TO CONSENT FOR SELF.
[2024-07-24 18:43] LABS: Reflex Lactate? Y
[2024-07-24 18:46] VITALS: BP 105/61; PULSE 90; RESP 20
--- NOTE | 2024-07-24 18:52 | EVENTNT_ITS ---
<Statement entered by Nadeem Sáncehz MD - 07/26/24 09:04> Agree with plan and examination finding on the note below. Patient seen and examined at bedside today. Labs and imaging reviewed. Patient care discussed with my attending Dr. De and co-resident Dr. Trimble. Documentation for date of: 07/24/24 Event Note Event Note: Called by the ED to review patient. 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 Patient presented with generalized weakness, upon review his labs showed elevated transaminases in the 100s, total bili 10.7, acute renal failure with BUN and creatinine of 80 and 3.8 respectively. Patient's vitals also indicated hypovolemic shock with blood pressure 60s/40s with MAP of 52. While reviewing the patient he also desaturated into the 80s requiring oxy mask at 15 L. Spoke to pega developer, Dr. Ann who said patient is not a candidate for any aggressive measures and he would benefit greatly from hospice. Patient is A&Ox3. Discussed with patient his current condition and overall poor prognosis with which he verbalized understanding. Patient expressed that he wishes to be full code and to have all possible interventions done despite the risks. Will discuss admission with ICU team for higher level of care. Plan of care discussed with Attending Dr. De and PGY3 Dr. Princess Trimble MD PGY 1
--- NOTE | 2024-07-24 19:18 | XR_ITS ---
Examination: AP chest single view Technique one AP portable supine chest single view Exam date and time: July 24, 2024 1928 hrs. Comparison October 21, 2024 1440 hrs. Indications: Post central line placement Findings: Worsening perihilar opacity consistent with pneumonia Right internal jugular central line tip right atrium No pneumothorax Reduced inspiratory effort Impression: Bilateral pneumonia Right internal jugular central line tip right atrium
--- NOTE | 2024-07-24 20:04 | ESHP_ITS ---
Documentation for date of: 07/24/24 HPI History of Present Illness History of present illness: Nikole Zamora is an 84-year-old male with a past medical history of prostate cancer status post prostatectomy, status post hepatobiliary stent on 07/10 in [place], A-fib on amiodarone, and type 2 diabetes mellitus who presented on 07/24 for generalized weakness and malaise with continued jaundice. Patient recently admitted on 07/15 for encephalopathy and yellowish discoloration, workup showed that recently placed hepatobiliary stent remained patent. Thus, stent was not changed and patient was discharged to follow-up with GI and oncology at a later date. In ED, labs showed bilirubin 10.7 (similar to previous admission), lactate 9.9, AST 708, ALT 260, ALP 955, Pro-Tommy 23.2, and creatinine 3.8 (baseline 0.4-0.6). Hospitalist team initially contacted for admission, however blood pressure noted to be 60s/40s and after IVF only had minimal improvement. Thus, ICU was consulted and upon evaluation, patient vitals showed BP 70s/50s while receiving maintenance IVF and in Trendelenburg position and HR 80s while on 10 L oxymask. Patient was awake and A&Ox3 but extremely frail/cachectic and weak, thus decision was made to place central line and arterial lines in ED and to start pressors and continuous blood pressure monitoring, respectively. Then patient to be admitted to ICU for further management. 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 FHx: noncontributory Review of Systems Review of Systems Systems Reviewed: All systems reviewed, normal except as documented Exam Vital Signs Temp Pulse Resp BP Pulse Ox O2 Del Method O2 Flow Rate 96.0 F L 90 20 105/61 100 Oxy Mask 10 07/24/24 17:09 07/24/24 18:46 07/24/24 18:46 07/24/24 18:46 07/24/24 17:09 07/24/24 18:46 07/24/24 18:46 Narrative Exam General: AOx3, jaundiced, cachectic/frail and ill-appearing elderly gentleman on 15 L oxymask and Reyes hugger HEENT: bitemporal wasting, scleral icterus Cardiovascular: regular rate and rhythm, S1/S2 present, no murmurs appreciated Pulmonary: clear to auscultation bilaterally, no rales/rhonchi/wheezes Abdominal: soft, non-tender, non-distended, no rebound/guarding, normal bowel sounds present Musculoskeletal: generalized muscle wasting/atrophy Skin: jaundiced, warm and dry, intact Neuro: CN II-XII intact, no focal deficits Results: Labs 07/24/24 15:20 07/24/24 15:20 Labs: Short CBC 07/24/24 Range/Units 15:20 WBC 6.5 D (3.8-10.6) Thou/mm3 Hgb 8.7 L (13.5-16.0) g/dL Hct 24.9 L (41.0-53.0) % Plt Count 251 D (140-440) Thou/mm3 BMP 07/24/24 15:20 Sodium 133 L Potassium 5.7 H Chloride 92 L Carbon Dioxide 20.8 BUN 80 H Creatinine 3.8 H D Glucose 252 H Calcium 8.4 Cardiac Enzymes 07/24/24 Range/Units 15:20 Troponin I 0.026 (0.0-0.045) ng/mL Liver Function 07/24/24 Range/Units 15:20 Total Bilirubin 10.7 H (0.3-1.2) mg/dL AST 708 H* (0-34) U/L ALT 260 H (10-49) U/L Alkaline Phosphatase 955 H (46-116) U/L Albumin 2.8 L (3.4-4.8) gm/dL ABG Interpretation ABG results: 07/24/24 15:20 VBG pH 7.43 VBG pCO2 31 L VBG pO2 35 VBG Base Excess -3 Quality Measures Quality Measures none Advance care planning discussed with:: patient Medications Home Medications and Allergies Allergies Allergy/AdvReac Type Severity Reaction Status Date / Time No Known Allergies Allergy Verified 07/04/24 14:51 Visit Medications Acetaminophen (Acetaminophen 325 Mg Tablet) 325 mg PO Q4HR PRN PRN Reason: PAIN SCALE 1-3 (mild Stop: 08/23/24 18:42 Al Hydrox/Mg Hydrox/Simethicone (Mg Hyd/Al Hyd/Stella (Maalox Reg) Susp 30 Ml Udc) 30 ml PO Q4HR PRN PRN Reason: Heartburn or Upset Stomach Stop: 08/23/24 18:42 Heparin Sodium (Porcine) (Heparin Sod Inj 5000 Unit/Ml Vial) 5,000 unit SC Q12HR [facility] Stop: 08/07/24 20:59 Lactated Ringer's (Lactated Ringers) 1,000 mls @ 125 mls/hr IV .Q8H ONE Stop: 07/25/24 01:42 Piperacillin Sod/Tazobactam (Sod 3.375 gm/ Sodium Chloride) 50 mls @ 12.5 mls/hr IV Q12HR [facility] Stop: 08/01/24 08:59 Norepinephrine Bitartrate (Levophed In Ns 16mg/250ml) 16 mg in 250 mls @ 3.189 mls/hr IV .Q24H PRN; Protocol PRN Reason: PER PROTOCOL Stop: 08/23/24 18:48 Lactated Ringer's (Lactated Ringers) 1,000 mls @ 999 mls/hr IV .Q1H1M ONE Stop: 07/24/24 20:30 Magnesium Hydroxide (Milk Of Magnesia Susp 30 Ml Udc) 30 ml PO QDAY PRN PRN Reason: CONSTIPATION Stop: 08/23/24 18:42 Nitroglycerin (Nitroglycerin 0.4 Mg Subl Btl #25) 0.4 mg SL Q5MIN PRN PRN Reason: CHEST PAIN Pantoprazole Sodium (Pantoprazole Inj 40 Mg Vial) 40 mg IVP QDAY [facility] Stop: 08/23/24 18:44 Discontinued Medications Acetaminophen (Acetaminophen 325 Mg Tablet) 650 mg PO Q4HR PRN PRN Reason: PAIN SCALE 1-3 (mild Stop: 08/23/24 18:42 Acetaminophen (Acetaminophen Supp 650 Mg Supp) 650 mg TX Q4HR PRN PRN Reason: PAIN SCALE 1-3 (mild Stop: 08/23/24 18:42 Sodium Chloride (Ns) 1,000 mls @ 1,000 mls/hr IV .Q1H ONE Stop: 07/24/24 15:26 Last Infusion: 07/24/24 16:32 Dose: Infused Sodium Chloride (Ns) 1,000 mls @ 2,000 mls/hr IV .Q30M ONE Stop: 07/24/24 14:56 Last Admin: 07/24/24 15:24 Dose: Not Given Piperacillin Sod/Tazobactam (Sod 3.375 gm/ Sodium Chloride) 50 mls @ 100 mls/hr IV X1 ONE Stop: 07/24/24 18:12 Lactated Ringer's (Lactated Ringers) 1,000 mls @ 999 mls/hr IV .Q1H1M ONE Stop: 07/24/24 18:43 Sodium Chloride (Ns) 1,000 mls @ 999 mls/hr IV .Q1H1M ONE Stop: 07/24/24 19:10 Last Admin: 07/24/24 18:20 Dose: 999 mls/hr Assessment & Plan Plan Neurological No acute/active disease Cardiovascular #Shock, hypovolemic versus distributive (septic) In ED, BP 60s/40s with MAP of 52. However, after cuff change due to patient body habitus, BP improved to 70s/50s. Received 1 L NS bolus and on maintenance NS, with minimal response in BP. ? 1 L LR bolus ? 1 L maintenance LR ? Levophed ? Vasopressin ? Zosyn ? Follow-up blood culture Pulmonary #Acute hypoxic respiratory failure ABG 07/24: pH 7.2, pCO2 47, pO2 75 CXR noted to have worsening perihilar opacity, consistent with pneumonia ? O2 therapy via oxy mask ? Zosyn as above Renal #Acute kidney injury, likely prerenal azotemia in setting of sepsis versus hypovolemia Baseline Cr 0.4-0.6 and presented with Cr 3.8 ? IVF as above ? Avoid nephrotoxic agents and renally dose medications #Anion gap metabolic acidosis, secondary to #Lactic acidosis Initial lactic acid 9.9 ? IVF as above ? Trend lactic acid Gastrointestinal #Status-post hepatobiliary stent placement, 07/10 #Hyperbilirubinemia #Transaminitis Hepatobiliary stent placed 07/10 in [place] and presented to [facility] on 07/15 due to AMS and jaundice. Work-up included HIDA scan and showed patent stent and thus ERCP not needed for stent change. Now presents on 07/24 for generalized weakness and labs show bilirubin of 10.7, which is similar to previous admission. However, LFTs and ALP noted to be significantly more elevated compared to prior. ? Recently had HIDA scan that showed patency with similar bilirubin levels, so will defer HIDA scan for now ? IVF as above ? IV antibiotics as above ? Daily labs and LFTs Heme/onc #Chronic normocytic anemia ? No signs of active bleeding and will continue to monitor Endocrine Type 2 diabetes mellitus ? SSI Infectious disease #Sepsis, secondary to cholecystitis versus cholangitis versus pneumonia ? IV antibiotics as above ? Follow-up blood cultures Hospital management: Disposition: critically ill in ICU Drips: levophed and vasopressin Fluids: LR Diet: NPO Lines: PIV, right IJ central, right femoral arterial DVT prophylaxis: heparin SC GI prophylaxis: pantoprazole IV CODE STATUS: full code ----- Plan discussed with attending physician Dr. Johanna Leong MD PGY-1 Internal Medicine Attending Provider Attestation/Addendum Patient not seen on date of service. I was contacted by medicine attending that patient was being admitted but continued show deterioration. I was agreeable that the patient should be admitted to the ICU given the increased morbidity and mortality associated with underlying diagnosis. Resident staff aggressively volume resuscitated the patient with appropriate initiation of vasopressors and antibiotics given the possibility of septic shock secondary to cholangitis versus pneumonia. Despite aggressive measures the patient subsequently had cardiac arrest while awaiting placement in the ICU with resuscitative efforts completed by ED staff and medicine residents. I was not notified of the development of cardiac arrest while the patient remained in the emergency department. Unfortunately, patient ultimately had demise due to underlying infection. I did not have the opportunity to assess the patient myself due to the patient's rapid clinical deterioration.
--- NOTE | 2024-07-24 20:10 | PC.NURSE ---
Was in CT with my other pt when I heard Loli Fermin called overhead for pt. waist cutter Babatunde and ED RNs Nanda, Nani and Helene at the bedside.
[2024-07-24 20:24] LABS: Base Excess -8 (-3-3); HCO3 19 mEq/L (20-26); Inspired Oxygen, FIO2 21 %; O2 Saturation 92 % (91-98); PCO2 47 mmHg (32.0-48.0); PO2 75 mmHg (83-108); pH, Arterial 7.22 (7.35-7.45)
[2024-07-24 20:26] LABS: Allen Test Performed/OK; Puncture Site Right Radial
--- NOTE | 2024-07-24 20:33 | EDNOTE_ITS ---
Emergency Room Addendum <Jossie Collins - Last Filed: 07/25/24 01:30> Addendum Narrative: Patient experienced a cardiac arrest in the ED. Code Blue was immediately activated. Initial resuscitative efforts resulted in ROSC on the first attempt. However, during the subsequent round of resuscitation, the patient re-arrested and did not respond to further interventions. Approximately 700 mL of coffee-ground emesis was noted during the resuscitative efforts. Despite aggressive intervention by the ED staff, the patient at 2026. Disposition: Patient pronounced at 2026. Further documentation and communication with family have been initiated. <Lola Villegas MD - Last Filed: 08/07/24 17:00> Addendum Narrative: Called to bedside for code blue. 84 yo male patient pulseless, apneic. CPR started emergently. Patient intubated by me. Approximately 700 mL of coffee- ground emesis suctioned from oropharynx. See code sheet for medication details. ROSC obtained. GENERAL APPEARANCE: obtunded, unresponsive, cachectic HEENT: Normocephalic, atraumatic; pupils equal, round, 3mm, sluggish; mucous membranes pink; oropharynx clear LUNGS: no spontaneous respirations, ventilated via BVM, CTABL with ventilation HEART: no pulse, no cardiac sounds, good pulse with chest compressions ABDOMEN: Mildly distended; soft EXTREMITIES: atraumatic; no edema NEUROLOGIC: no response to painful stimuli SKIN: cool, severely jaundiced, mottled Patient became bradycardic and then asystole. Code blue called again. CPR started emergently. See code sheet for medication details. ROSC not obtained. Despite aggressive intervention by the ED staff, the patient at 2026. Disposition: Patient pronounced at 2026. Further documentation and communication with family have been initiated. MD Attestation <Jossie Collins - Last Filed: 07/25/24 01:30> MD Attestation Scribe Attestation: Radha Maradiaga am scribing for and in the presence of Dr. Villegas. Provider Notation: Although this document has been carefully reviewed, there may still be some phonetic and other typographical errors. These errors are purely grammatical due to imperfections in the software program and should not be construed in any way to compromise the substance of the patient's medical care during this visit.
--- NOTE | 2024-07-24 20:42 | PD.RESPROC ---
Procedures Procedure Date / Time 07/24/242041 Procedure Narrative Procedure Narrative: Attending attestation: I was not present for procedure. I agree with the plan as documented by above resident. ED physician was available for direct supervision. Arterial Line Indication(s): frequent arterial line sampling, shock and inability to monitor non-invasive BP Informed consent obtained: from patient Time out done, and the following verified: correct patient, side and site, procedure, patient position and implants and/or equipment Size (Gauge): 16 Technique used: direct puncture technique Post-Procedure: line sutured into place and dry sterile dressing placed Patient tolerated procedure: well EBL(ml): 2 Complications: none Site: right and femoral
--- NOTE | 2024-07-24 20:46 | PD.DPN ---
Documentation for date of: 07/24/24 Pronouncement Note Date and Time of Date of : 07/24/24 Time of : 20:27 PCOD Preliminary cause of : Cardiopulmonary arrest Summary Additional details: At 8 PM patient was getting arterial line set up, when he started to have soft blood pressures. We immediately put in orders for more fluids and pressors. Before medication was started patient started having signs of agonal breathing and no pulse was felt CODE BLUE was called. Immediately patient was started receiving chest compressions. After 3 rounds of epi, 2 bicarb pushes, and 1 push of calcium chloride ROSC was achieved for about 1 minute. Patient went into V-fib and amnio was given and patient went into PEA quickly thereafter and CPR was started again. Unfortunately we were unable to achieve ROSC and time of was called at 8:27 PM. Contact made aware and condolences were given. Attending Dr. Rollins was present during code. Rubio Holt MD PGY3. Additional Data Attending physician: Jf Spencer MD
--- NOTE | 2024-07-24 21:11 | DES_ITS ---
<Statement entered by Lashay Rollins MD - 07/24/24 22:10> I attest that I was physically present throughout the code blue followed by ROSC, V-fib and another Code blue. I discussed the case with the resident and agree with the discharge summary as documented below. Lashay Rollins MD Documentation for date of: 07/24/24 Summary Date and Time Date of admission: 07/24/24 18:43 Summary Details: Mr. Zamora a 84-year-old male patient with significant medical history of prostate cancer s/p surgery and chemo-radiation, recent placement of hepatic biliary stent for intrahepatic dilation, A-fib on amiodarone, and type 2 diabetes mellitus and jaundice that was brought to the ED from SNF for generalized weakness and malaise. In ED patient noted to have multiple lab abnormalities with acute renal failure, acute liver failure, and anemia who was admitted for shock requiring ICU level of care. Patient had been receiving IV fluids and was receiving another bolus when he became even more hypotensive. Patient was about to start pressors when he went into PEA around 8 PM. CODE BLUE was called and CPR was initiated. ROSC was achieved for a few seconds. desk monitor was showing V-fib and patient was given amiodarone, he merely went into PEA and CPR was started again. We were unable to achieve ROSC the second time and time of was called at 8:27 PM. On exam patient had no spontaneous breathing, no heart sounds, no pulse, and pupils were fixed and dilated without pupillary reflex. Point of contact made aware and condolences were given. Attending present during code. Rubio Holt MD PGY3. Additional Data Attending physician: Jf Spencer MD Visit Providers Provider Primary care physician: Cesar Martinez MD Discharge Plan Plan Patient Disposition: Admit Acute Care w/in Hospital Prescriptions/Referrals Prescriptions/Med Rec: No Action ursodiol 300 mg capsule 300 mg PO TID Qty: 90 0RF metoprolol succinate [Toprol XL] 25 mg tablet extended release 24 hr 25 mg PO QDAY Qty: 30 1RF Eliquis 2.5 mg tablet 2.5 mg PO BID Qty: 60 1RF amoxicillin-pot clavulanate [Augmentin] 500-125 mg tablet 1 tab PO BID Qty: 8 0RF Referrals: Cesar Martinez MD [Primary Care Provider] - Problem List Clinical Impression: Acute hypotension, Dehydration, severe, Acute kidney injury, Jaundice, Elevated lactic acid level, Epigastric pain Patient/Caregiver Discharge Instructions Print Language: Icelandic Stand Alone Forms: Brandi Award Info., Patient Portal Info Letter
--- NOTE | 2024-07-24 21:19 | PD.RESPROC ---
Procedures Procedure Date / Time 07/24/24 1900 Procedure Narrative Procedure Narrative: I was not present at the time of the procedure but agree with procedure as documented. ED physician was available for direct supervision if required. Arterial Line Size (Gauge): 16 Central Line Placement Right IJ: Indication(s): shock and poor, or inadequate peripheral venous access Informed consent obtained: from patient Time out done, and the following verified: correct patient, side and site and procedure Patient placed on monitor/pulse ox: Yes Hand Hygiene: soap & water Max Sterile Barrier Techniques used: cap, mask, sterile gown, sterile gloves and sterile full body drape Central line prep: Povidone-Iodine 1% Local anesthesia used: lidocaine 1% Amount of anesthesia used (mL): 3 Ultrasound used for placement: Yes Procedure comment: Wore a surgical cap, mask, full gown and sterile gloves throughout procedure. Right neck region was prepped using chlorhexidine scrub and draped in sterile fashion using full drape and sterile probe cover and sterile gel employed. Internal jugular vein was identified using ultrasound. Anesthesia was achieved over vein using 1% lidocaine. Introducer needle inserted into internal jugular vein under direct ultrasound visualization. Venous blood was withdrawn and the syringe was removed. Guidewire advanced into introducer needle and guidewire was visualized in the IJV by ultrasound. A small incision was made at the skin surface with a scalpel and the introducer needle was exchanged for a dilator over the guidewire. After appropriate dilation was obtained, the dilator was exchanged over the wire for a central venous catheter. The wire was removed and the catheter was sutured in place at 16 cm. The patient tolerated the procedure without any hemodynamic compromise. At time of procedure completion, all ports aspirated and flushed properly.
== END 2024-07-24 21:42 | disposition expired ==
LOC: SERX 18:00 → SERHOLD 21:27
PROVIDERS: Student in an Organized Health Care Education/Training Program; Emergency Provider Emergency Medicine; PCP Family Medicine
DX: N17.9 Acute kidney failure, unspecified (principal); I95.9 Hypotension, unspecified; E87.20 Acidosis, unspecified; E86.0 Dehydration; R17 Unspecified jaundice; R09.89 Other specified symptoms and signs involving the circulatory and respiratory systems; I46.9 Cardiac arrest, cause unspecified; R94.31 Abnormal electrocardiogram [ECG] [EKG]
CPT/HCPCS: 36556; 36415; 36600; 71045; 80053; 80307; 80320; 81001; 82140; 82803; 83605; 83880; 84145; 84484; 85025; 85610; 86850; 86900; 86901; 87040; 92950; 93005; 96360; 96361; 99291; J0171; J0282; J7030; G0480